=== PATIENT | female | born 1935 | race Caucasian/White ===

== ENCOUNTER 2024-04-19 18:11 | Inpatient (IN) | payer OTHER, SELFPAY ==
--- NOTE | 2024-04-19 13:26 | ED.GENMED ---
History of Present Illness
General
Chief Complaint: Breathing Problem
Source: patient, patient care assistant and ambulance crew
Exam Limitations: none
Time Seen by Provider: 04/19/24 13:03
Nursing documentation reviewed up to this point in time: agreed with
Travel History
Have you had any contact with someone who has COVID-19?: No
Do you have any symptoms of coronavirus? Fever > 100 degrees, chills, cough, shortness of breath, sore throat, loss of taste or smell, muscle aches, or headache?: No
History of Present Illness
History of Present Illness:
89-year-old female past medical history of asthma Parkinson's hypertension hyperlipidemia presenting to the emergency department today after she had a fall while she was doing exercises fell hit her back she has had ongoing back pain as well as
shortness of breath and wheezing since EMS was called found her to have a pulse ox in the 80s was given nebulizer treatment as well as oxygen with improvement. She has ongoing back pain denies specific chest pain nausea vomiting fevers any recent
illness she otherwise felt well prior to falling today.
Review of Systems
Review of Systems
Allergies reviewed?: Yes
All Other Systems: ROS reviewed and negative except as documented in HPI and ROS
Phy Exam
Physical Exam
Physical Exam:
GENERAL: Alert , in no apparent distress
EYE: pupils equal and reactive
NECK: Supple, no significant adenopathy.
ENT: o/p clr, mmm.
CARDIAC: Regular rate and rhythm .
LUNGS: Diffuse inspiratory and expiratory wheezing. Good air movement diffusely.
ABDOMEN: Soft, without focal tenderness, no r/g, no cvat
NEUROLOGICAL: Alert and oriented, no focal neuro deficits moving all extremities
SKIN: Warm and dry, skin intact.
MUSCULOSKELETAL: No edema, well perfused.
PSYCH: Normal and appropriate interaction.
Scores
Heart Failure Risk
Heart Failure Risk Score: Not Applicable
Course
Orders/Labs/Results
Orders:
Orders
04/19/24 Breakfast
Regular
At Your Request: Full Participation
Does patient need a safe tray?: No
04/19/24 13:03
Electrocardiogram (*1) Stat
Reason for Study: Other
Other Reason for Exam: chest pain
Cardiac Monitoring- Treatment ONCE
EKG- Treatment ONCE
Dexamethasone Sod Phosphate [Decadron] 10 mg IV NOW STA
Ipratropium/Albuterol Sulfate [Duoneb] 3 ml INH R NOW ONE
Portable Chest Xray [CR Chest Portable - 1 View] Urgent
Comment:
Reason For Exam: sob after fall
Reason Study Needs to be Portable: Patient Unstable
04/19/24 13:12
Chest/Abd/Pelvis w Contrast CT [CT Chest/abd/pel W Iv Cont] Urgent
Comment:
Reason For Exam: fall back pain sob cp,trauma scan
04/19/24 13:26
Complete Blood Count/With Diff Urgent
Comprehensive Metabolic Panel Urgent
Magnesium Urgent
NT-proBNP Urgent
Troponin I Urgent
04/19/24 14:43
Carbidopa/Levodopa [Sinemet 25-100] 1 tablet PO NOW STA
04/19/24 15:18
Propranolol [Inderal] 20 mg PO NOW STA
04/19/24 15:34
Dexamethasone Sod Phosphate [Decadron] 20 mg .ROUTE .STK-MED ONE
04/19/24 16:21
Ipratropium/Albuterol Sulfate [Duoneb] 3 ml INH R NOW ONE
04/19/24 17:24
Admit/Transfer Patient As Directed
Co-Sign Provider:
Level of Care: Inpatient admission
Assign to:: Medical/Surgical
Physician / Group: Laura
Diagnosis: Acute Asthma Exacerbation
Reason for Hospitalization: Nebs and Steroids
Expected length of stay greater than two midnights?: Yes
ELOS- Estimated Length of Stay in days: 3
I certify the patient meets the requirements for IP care: Yes
04/19/24 17:31
Code Status As Directed
Resuscitation Status: Do not resuscitate
Reached after discussion with pt or family/Healthcare POA: Yes
DNR Bracelet Application ONCE
04/19/24 17:52
COVID-19 Antigen Urgent
Source: Nasal Swab
Influenza A+B Rapid Molecular Urgent
SALMA Source: Nasal Swab
Specimen Description:
04/19/24 19:21
Acetaminophen [Tylenol] 650 mg PO Q4HPRN PRN
Albuterol Nebs [Ventolin Nebules] 2.5 mg INH R Q4HPRN PRN
04/19/24 19:21
Activity As Directed
Activity Level: Out of Bed- Chair
With Assistance
I&O [Intake/ Output] As Directed
Frequency: q12h
Orthostatic Vital Signs As Directed
Orthostatic VS Frequency: BID
Pneumatic Compression Sleeves As Directed
Type: Knee high
Vital Signs As Directed
Frequency: Per unit guidelines
Weight As Directed
Frequency: Daily
Oxygen Therapy [O2 Therapy] [RESP] Routine
Titrate/Wean O2 to maintain O2 sat greater than (%): 90
Pulse Ox/spot Check [RESP] Routine
Quantity: 1
Ot Eval And Treat Routine
Pt Eval And Treat Routine
Activity Level: Out of Bed-Early Mobility
DX Deep Vein Thrombosis Video Routine
04/19/24 20:00
Albuterol Nebs [Ventolin Nebules] 2.5 mg INH R QID
Budesonide [Pulmicort] 0.5 mg INH R BID
Calcium Carbonate [Oscal Eddie 500] 500 mg PO BID
04/19/24 22:00
Carbidopa/Levodopa [Sinemet 25-100] 1 tablet PO ACHS
04/20/24 05:35
Basic Metabolic Panel IN AM
Complete Blood Count/No Diff IN AM
04/20/24 08:00
Prednisone [Deltasone] 40 mg PO DAILY
Propranolol Extended Release [Inderal LA] 60 mg PO DAILY
Valsartan [Diovan] 160 mg PO DAILY
Abnormal Lab Results
04/19/24
13:26
WBC 17.1 H 10^3/uL
(4.8-10.8)
MCH 32.0 H pg
(27.0-31.0)
MPV 11.2 H fL
(7.4-10.4)
Abs Immat Gran (auto) 0.3 H 10^3/uL
(0-0.05)
Absolute Neuts (auto) 13.3 H 10^3/uL
(1.4-6.5)
Absolute Monos (auto) 0.9 H 10^3/uL
(0.1-0.6)
Immature Gran % 1.9 H %
(0-0.5)
Neutrophils % 78.1 H %
(42.2-75.2)
Lymphocytes % 13.3 L %
(20.5-51.1)
BUN 25 H mg/dl
(7-17)
Glucose 101 H mg/dl
(70-99)
AST 42 H U/L
(14-36)
04/19/24 13:26
04/19/24 13:26
Vital Signs
Initial and Last Documented VS:
Initial Vital Signs
Temp Pulse Resp Pulse Ox
97.9 F 82 22 93
04/19/24 13:07 04/19/24 13:07 04/19/24 13:07 04/19/24 13:07
Last Documented Vital Signs
Temp Pulse Resp BP Pulse Ox
98.4 F 79 18 156/96 95
04/20/24 14:08 04/20/24 15:27 04/20/24 15:27 04/20/24 07:50 04/20/24 15:27
MDM/Problems Addressed
MDM/Problems Addressed:
89-year-old female presenting to the emergency department today after ground-level fall hitting her back and then noticing shortness of breath wheezing since. Pulse ox was low the ambulance arrived this improved with nebulizer treatment and oxygen.
Patient does have diffuse wheezing. Considering that this was posttraumatic, ct scan was ordered. CT scan without acute findings. Concern the patient's significant asthma diet plan to admit for further treatment and monitoring.
*Critical Care Note
Total Time (30-74mins, 75-104mins- exclusive of procedures): Not Applicable
ED Attending Note
-
Portions of this chart may have been created with voice recognition software.� Occasional wrong word or��sound alike� substitutions may have occurred due to the inherent limitations of voice recognition software.
Discharge Plan
Departure
Patient Disposition: Admit
Date of Disposition: 04/19/24
Time of Disposition: 16:21
Admit to: Med/Surg
Admit to doctor: Kristi
Presentation/result/management discussed w/ accepting MD/DO: Hospitalist
Patient with high blood pressure during this ER visit?: No
Condition: Good
Covid-19: Not Applicable
Discharge Problem:
Asthma exacerbation, Fall
Interventions
Interventions:
*Risk Screen - Suicide Last Done: 04/19/24 19:19
*General Assessment Last Done: 04/19/24 19:19
*Neglect/Abuse Screening Last Done: 04/19/24 19:19
*ED COVID-19 Vaccine History Last Done: 04/19/24 19:19
*Nursing Disposition Last Done: 04/19/24 19:19
ED- Cardiac Assessment Last Done: 04/19/24 15:20
ED- Pulmonary Assessment Last Done: 04/19/24 15:20
Discharge Date and Time
Discharge Date/Time: 04/19/24 19:27
[2024-04-19 13:37] LABS: % Basophils 0.5 % (0-2); % Eosinophils 0.7 % (0-6); % Immature Granulocytes 1.9 % (0-0.5); % Lymphocytes 13.3 % (20.5-51.1); % Monocytes 5.5 % (1.7-9.3); % Neutrophils 78.1 % (42.2-75.2); Absolute Basophils 0.1 10^3/uL (0-0.2); Absolute Eosinophils 0.1 10^3/uL (0-0.7); Absolute Immature Granulocytes 0.3 10^3/uL (0-0.05); Absolute Lymphocytes 2.3 10^3/uL (1.2-3.4); Absolute Monocytes 0.9 10^3/uL (0.1-0.6); Absolute Neutrophils 13.3 10^3/uL (1.4-6.5); Hematocrit 45.1 % (37.0-47.0); Hemoglobin 15.5 g/dL (12.0-16.0); Mean Corp Hgb Conc. 34.4 g/dL (33.0-37.0); Mean Corpuscular Volume 93.2 fL (81.0-99.0); Mean Platelet Volume 11.2 fL (7.4-10.4); Nucleated Red Blood Cells % 0 %; Platelet Count 392 10^3/uL (130-400); Red Blood Cell Count 4.84 10^6/uL (4.20-5.40); Red Cell Dist. Width 13.9 % (11.5-14.5); White Blood Cell Count 17.1 10^3/uL (4.8-10.8)
[2024-04-19 13:48] LABS: ALT (SGPT) 14 U/L (0-35); AST (SGOT) 42 U/L (14-36); Albumin 4.4 g/dl (3.5-5.0); Alkaline Phosphatase 89 U/L (38-126); Blood Urea Nitrogen 25 mg/dl (7-17); Carbon Dioxide 30 mmol/L (22-30); Chloride 104 mmol/L (98-107); Glucose 101 mg/dl (70-99); Magnesium 1.7 mg/dl (1.6-2.3); Potassium 4.4 mmol/L (3.5-5.1); Sodium 141 mmol/L (135-145); Total Bilirubin 0.8 mg/dl (0.2-1.3); Total Protein 7.4 g/dl (6.3-8.2); eGFR > 60.00
[2024-04-19 13:59] LABS: NT-proBNP 1560 pg/ml; Troponin I < 0.012 ng/ml
[2024-04-19] MEDS: DECADRON 10 MG IV (15:34)
[2024-04-19] MEDS: SINEMET 25-100 1 TABLET PO ×2 (15:35→21:19)
[2024-04-19] MEDS: INDERAL 20 MG PO (15:35)
[2024-04-19] MEDS: DUONEB 3 ML INH ×2 (15:48→18:30)
--- NOTE | 2024-04-19 17:37 | HPS.HSE ---
Addendum entered and electronically signed by Richardson Sanchez MD 04/19/24 18:00:
I saw and examined the patient.
The REPORT CLERK or PA's note was reviewed and I agree with the note.
Comment:
88y F with PMH significant for asthma, Parkinson�s, hypertension, HLD, and spinal compression fracture now presenting after fall, found to be hypoxic, shortness of breath and wheezing.� Patient states she was doing exercises while she hit her back.�
Patient subsequently had ongoing back pain, shortness of breath and wheezing thereafter.� Noted to have pulse oximeter recording in the 80 percentile.� Patient's oxygenation improved with oxygen and nebulizer treatment.� Otherwise denies chest pain,
fever, chills, nausea, vomiting, sick contact, recent viral illness.� Vitals show respiratory 22, 93% on 2 L, pulse 82.� Afebrile.� White count 17.1, proBNP 1560.� CT chest abdomen pelvis with thoracic and lumbar vertebral compression fractures,
stable, cardiomegaly, no acute posttraumatic soft tissue abnormality.
Plan
#Acute hypoxic respiratory failure
#Acute Asthma Exacerbation
� In setting wheezing, most likely asthma exacerbation
�continue DuoNebs
- prednisone 40mg
� Wean O2 as tolerated
-sars-cov-2 and flu
� No overt evidence of fluid overload at this time
� If no improvement with DuoNebs, can consider Lasix, echo although doubt and less likely as no evidence of fluid overload on CT imaging
#Leukocytosis
#SIRS without obvious infectious etiology
� Most likely acute stress due to fall, respiratory distress
� Continue to monitor fever curve, white count
Compression Fracture / Sacral Fracture
Ambulatory Dysfunction
�- Pain control as needed.
�- PT / OT evaluations during acute stay.
�- CT head: negative for acute pathology
#Essential Tremor
propranolol
DVT Prophylaxis:� Subcut heparin
Code Status:� DNR
Original Note:
Family Physician
-
Family Physician: Colin Kelley DO
Chief Complaint
-
Wheezing
History of Present Illness
This is a 89-year-old female with a past medical history of asthma, essential tremor, hypertension and spinal compression fractures, who presents today for increase shortness of breathe and wheezing following a fall this afternoon. She states she
was completing exercises while ambulating with her walker and when she went back to her wheelchair to sit down, she missed and fell onto her back. She states her breathing became worse and she had onset of wheezing at the time as well. She currently
complains of dull mid back pain, but states it is significantly improved since time of injury. She denies coughing, chest pain, fevers/chills, dizziness, palpitations and current wheezing. She denies increase use of albuterol inhaler.
Medical History
Past Medical History
Past Medical History: Reports Other
Additional Past Medical History:
Essential Hypertension
Benign Essential Tremor / Parkinson's Disease
Asthma
Thoracic Compression Fracture
Sacral Insufficiency Fracture
Ambulatory Dysfunction
Past Surgical History: Reports None
Social History
Tobacco: Non-smoker
Alcohol: None
Drug: None
Living: Other (Independent Apartment with Aides)
Family History
Family History: Not pertinent
Allergies / Home Medications
Allergies reflects when Allergies were last updated in [employer].
Home Medications with original date entered in [employer]
Allergy/Medication List:
Allergies
Allergy/AdvReac Type Severity Reaction Status Date / Time
Cephalosporins Allergy Unknown Unknown Verified 04/04/23 01:20
clindamycin Allergy Unknown Verified 04/04/23 01:20
Penicillins Allergy Unknown Verified 04/04/23 01:20
Home Medications
acetaminophen 325 mg tablet 650 mg PO Q4H PRN pain 04/04/23
albuterol sulfate 90 mcg/actuation aerosol inhaler 2 puff inhalation QID PRN wheezing 04/04/23
multivitamin 1 tab PO DAILY Supplement 04/04/23
calcium carbonate 500 mg PO BID 04/19/24
carbidopa 25 mg-levodopa 100 mg tablet 1 tab PO QID 04/19/24
fluticasone propionate 45 mcg-salmeterol 21 mcg/actuation HFA inhaler (Advair HFA) 2 puff inhalation BID 04/19/24
propranolol 60 mg capsule,24 hr,extended release 60 mg PO DAILY 04/19/24
valsartan 160 mg tablet 160 mg PO DAILY 04/19/24
Review of Systems
-
A 12 point ROS was completed and negative except as noted: Yes
Constitutional: Denies Fever or Chills
Respiratory: Reports See HPI
Cardiac: Denies Chest Pain or Palpitations
Physical Exam
Vital Signs
Vital Signs
Temp Pulse Resp BP Pulse Ox
97.9 F 85 22 159/98 93
04/19/24 13:07 04/19/24 15:35 04/19/24 13:07 04/19/24 15:35 04/19/24 13:07
Physical Exam
General: Comfortable and Conversant
HEENT: Anicteric, Moist mucous membranes and Oxygen (Nasal Cannula)
Respiratory: Rales (Faint at right base) and Decreased Breath Sounds (Poor inspiratory effort); No Accessory Resp Muscle Use
Cardiac: S1/S2 and Regular Rhythm; No Tachycardia
GI: Soft and Non Tender
Musculoskeletal: No Clubbing, No Cyanosis and Other (Trace edema bilateral lower ext)
Skin: Warm and Dry
Neuro: Awake, Alert, Oriented and Tremors (Fine tremors in bilateral upper extremities)
Laboratory Results
-
04/19/24 13:26
04/19/24 13:26
Laboratory Results
Total Bilirubin 0.8 mg/dl (0.2-1.3) 04/19/24 13:26
AST 42 U/L (14-36) H 04/19/24 13:26
ALT 14 U/L (0-35) 04/19/24 13:26
Alkaline Phosphatase 89 U/L (38-126) 04/19/24 13:26
Troponin I < 0.012 ng/ml 04/19/24 13:26
Data Reviewed
-
Diagnostic Radiology: Report Reviewed by me
CT Scan: Report Reviewed by me
Lab Data: Labs Reviewed by me
Impression/Plan
-
Acute Hypoxic Respiratory Insufficiency secondary to Acute Asthma Exacerbation
-Continue supplemental oxygen
-Check COVID and Influenza
-Continue Albuterol neb QID and PRN
-Continue budesonide neb in place of Flovent HFA
-Patient received Decadron 10mg IV in ED - Transition to oral prednisone to start tomorrow
Leukocytosis, likely leukemoid stress reaction
-No evidence of infection at present time
-Repeat CBC in AM
Essential Hypertension
-Continue valsartan
Benign Essential Tremor / Parkinson's Disease
-Continue Propranolol and Sinemet
-Consult PT/OT
DVT proph: SCDs
Code Status: DNR
[2024-04-19 18:24] LABS: COVID-19 Antigen Negative (Negative)
--- NOTE | 2024-04-19 19:37 | PTCARENOTE ---
Pt arrived onto floor @1937. Pt AAOx3 and a candy puller to the bed. Pt on 3L of O2, with no complaints of SOB or pain at this time. Pt oriented to room and call braxton; will continue to monitor.
[2024-04-19] MEDS: VENTOLIN NEBULES 2.5 MG INH (20:09)
[2024-04-19] MEDS: PULMICORT 0.5 MG INH (20:12)
[2024-04-19] MEDS: OSCAL CAL 500 PO (21:21)
[2024-04-19 23:00] VITALS: BP 130/73
[2024-04-20 00:14] VITALS: BP 130/73
[2024-04-20 06:03] LABS: Hematocrit 40.3 % (37.0-47.0); Mean Corp Hgb Conc. 34.7 g/dL (33.0-37.0); Mean Corpuscular Hgb 31.9 pg (27.0-31.0); Mean Corpuscular Volume 91.8 fL (81.0-99.0); Platelet Count 280 10^3/uL (130-400); Red Blood Cell Count 4.39 10^6/uL (4.20-5.40); Red Cell Dist. Width 13.8 % (11.5-14.5); White Blood Cell Count 11.6 10^3/uL (4.8-10.8)
[2024-04-20 06:22] LABS: Blood Urea Nitrogen 22 mg/dl (7-17); Calcium 9.4 mg/dl (8.4-10.2); Carbon Dioxide 26 mmol/L (22-30); Chloride 105 mmol/L (98-107); Estimated Creatinine Clearance 54 ml/min; Glucose 145 mg/dl (70-99); Potassium 4.3 mmol/L (3.5-5.1); Sodium 137 mmol/L (135-145); eGFR > 60.00
[2024-04-20] MEDS: PULMICORT 0.5 MG INH ×2 (07:29→20:04)
[2024-04-20] MEDS: VENTOLIN NEBULES 2.5 MG INH ×4 (07:29→20:03)
[2024-04-20 07:50] VITALS: BP 156/96
[2024-04-20] MEDS: OSCAL CAL 500 500 MG PO ×2 (09:57→21:15)
[2024-04-20] MEDS: DIOVAN 160 MG PO (09:57)
[2024-04-20] MEDS: DELTASONE 40 MG PO (09:58)
[2024-04-20] MEDS: INDERAL LA 60 MG PO (10:06)
[2024-04-20] MEDS: SINEMET 25-100 1 TABLET PO ×3 (10:09→18:00)
--- NOTE | 2024-04-20 12:57 | W.PN.HOSP.TC ---
Today's Communication/Plan
-
dc ready, cm aware- transport is issue at this time
prednisone 5 days
f/u with pcp, ortho outpatient
Assessment / Plan
Assessment / Plan
Physical Exam
General: Comfortable and Conversant
HEENT: Anicteric, Moist mucous membranes and Oxygen (Nasal Cannula)
Respiratory: CTAB; No Accessory Resp Muscle Use
Cardiac: S1/S2 and Regular Rhythm; No Tachycardia
GI: Soft and Non Tender
Musculoskeletal: No Clubbing, No Cyanosis and Other (Trace edema bilateral lower ext)
Skin: Warm and Dry
Neuro: Awake, Alert, Oriented and Tremors (Fine tremors in bilateral upper extremities)
Acute Hypoxic Respiratory Insufficiency secondary to Acute Asthma Exacerbation
-Weaned off o2, wheezing resolved
-Prednisone x 5 days total
-COVID and Influenza negative
-Continue Albuterol neb QID and PRN
-Continue budesonide neb in place of Flovent HFA - back to Avair on DC
Leukocytosis, likely leukemoid stress reaction
-No evidence of infection at present time
-monitor fever curve, wbc
Essential Hypertension
-Continue valsartan
Benign Essential Tremor / Parkinson's Disease
-Continue Propranolol and Sinemet
-Consult PT/OT
Chronic LE Edema
-f/u PCP outpatient, including ECHO if needed
Compression Fracture / Sacral Fracture
Ambulatory Dysfunction
�- Pain control as needed.
�- PT / OT evaluations during acute stay.
�- CT head: negative for acute pathology
DVT proph: HSQ
Code Status: DNR
More than 30 minutes spent in discharge including
Final examination of the patient
Summarizing hospital stay
Instructions for continuing care to all relevant caregivers
Preparation of discharge records, prescriptions, and referral forms
Total time spent (35 in minutes):
Anticipated Discharge: Today
Subjective/Interval History
-
Date of Service: April 20, 2024
Wheezing resolved, weaned off O2
Objective Data
-
Labs:
Laboratory Results
04/20/24
05:35
WBC 11.6 H
Hgb 14.0
Hct 40.3
Plt Count 280 D
Sodium 137
Potassium 4.3
Chloride 105
Carbon Dioxide 26
BUN 22 H
Creatinine 0.6
Glucose 145 H
Calcium 9.4
Vital Signs:
Vital Signs
Temp Pulse Resp BP Pulse Ox
98.2 F 82 17 156/96 92
04/20/24 07:50 04/20/24 11:08 04/20/24 11:08 04/20/24 07:50 04/20/24 11:08
I&O
04/19/24 04/20/24 04/21/24
06:59 06:59 06:59
Intake Total 0 / 0
Balance 0 / 0
Review of Systems
-
History Source: Patient
All other systems: Reviewed and negative
Data Reviewed
-
Diagnostic Radiology: Image personally visualized and interpreted and Report Reviewed by me
CT Scan: Image personally visualized and interpreted and Report Reviewed by me
Labs: Labs Reviewed by me
[2024-04-20] MEDS: TYLENOL 650 MG PO (13:30)
--- NOTE | 2024-04-20 13:52 | CM ---
trust manager assistant reviewed patient's chart and met with patient and patient lives alone in a 4th apartment, that is elevator accessible, patient is independent with adl's and uses a walker and w/c in apartment. Patient has a 24 hour caregiver in
apartment. Patient has a prescription plan and patient uses [facility] pharmacy.
PCP: Dr. Chanel Kelley
Plan; trust manager assistant will await PT/OT and assist with discharge planning.
--- NOTE | 2024-04-20 14:00 | PTCARENOTE ---
1330 Pt c/o discomfort pain level 8, right side and right lower abdomen. Pt mention pain increases mainly when moving in bed.
DR. Sanchez notified ordered right rib and pelvis x-rays. Tylenol given as ordered, continue to monitor pt closely.
[2024-04-20 15:55] VITALS: BP 136/67
[2024-04-20] MEDS: HEPARIN 5000 UNITS SC (18:00)
[2024-04-20 23:57] VITALS: BP 157/78
[2024-04-21] MEDS: SINEMET 25-100 1 TABLET PO ×4 (00:23→17:44)
[2024-04-21] MEDS: HEPARIN 5000 UNITS SC ×2 (00:33→09:09)
[2024-04-21 04:56] VITALS: BP 188/90; BP 191/92; PULSE 66; PULSE 69
[2024-04-21 06:00] VITALS: BMI 17.8
[2024-04-21] MEDS: PULMICORT 0.5 MG INH (07:20)
[2024-04-21] MEDS: VENTOLIN NEBULES 2.5 MG INH ×3 (07:20→15:12)
[2024-04-21 07:25] VITALS: BP 179/98
[2024-04-21 07:29] LABS: Hematocrit 38.2 % (37.0-47.0); Hemoglobin 13.2 g/dL (12.0-16.0); Mean Corp Hgb Conc. 34.6 g/dL (33.0-37.0); Mean Corpuscular Hgb 32.1 pg (27.0-31.0); Mean Corpuscular Volume 92.9 fL (81.0-99.0); Mean Platelet Volume 11.8 fL (7.4-10.4); Platelet Count 229 10^3/uL (130-400); Red Blood Cell Count 4.11 10^6/uL (4.20-5.40); Red Cell Dist. Width 14.2 % (11.5-14.5); White Blood Cell Count 11.5 10^3/uL (4.8-10.8)
[2024-04-21] MEDS: DELTASONE 40 MG PO (09:06)
[2024-04-21] MEDS: DESENEX/MITRAZOL/ZEASORB 1 APPLIC TOPICAL (09:06)
[2024-04-21] MEDS: DIOVAN 160 MG PO (09:07)
[2024-04-21] MEDS: INDERAL LA 60 MG PO (09:07)
[2024-04-21] MEDS: OSCAL CAL 500 500 MG PO (09:10)
--- NOTE | 2024-04-21 10:33 | W.PN.HOSP.TC ---
Addendum entered and electronically signed by Richardson Sanchez MD 04/21/24 15:46:
[id number]
Original Note:
Today's Communication/Plan
-
dc ready, cm aware
pt/ot pending
pain control
prednisone 5 days
f/u with pcp, ortho outpatient
Assessment / Plan
Assessment / Plan
Physical Exam
General: Comfortable and Conversant
HEENT: Anicteric, Moist mucous membranes and Oxygen (Nasal Cannula)
Respiratory: CTAB; No Accessory Resp Muscle Use
Cardiac: S1/S2 and Regular Rhythm; No Tachycardia
GI: Soft and Non Tender
Musculoskeletal: No Clubbing, No Cyanosis and Other (Trace edema bilateral lower ext)
Skin: Warm and Dry
Neuro: Awake, Alert, Oriented and Tremors (Fine tremors in bilateral upper extremities)
Acute Hypoxic Respiratory Insufficiency secondary to Acute Asthma Exacerbation
-Weaned off o2, wheezing resolved
-Prednisone x 5 days total
-COVID and Influenza negative
-Continue Albuterol neb QID and PRN
-Continue budesonide neb in place of Flovent HFA - back to Avair on DC
Leukocytosis, likely leukemoid stress reaction
-No evidence of infection at present time
-monitor fever curve, wbc
Essential Hypertension
-Continue valsartan
Benign Essential Tremor / Parkinson's Disease
-Continue Propranolol and Sinemet
-Consult PT/OT
Chronic LE Edema
-f/u PCP outpatient, including ECHO if needed
Compression Fracture / Sacral Fracture
Ambulatory Dysfunction
�- Pain control as needed.
�- PT / OT evaluations during acute stay.
�- CT head: negative for acute pathology
DVT proph: HSQ
Code Status: DNR
More than 30 minutes spent in discharge including
Final examination of the patient
Summarizing hospital stay
Instructions for continuing care to all relevant caregivers
Preparation of discharge records, prescriptions, and referral forms
Total time spent (35 in minutes):
Anticipated Discharge: Today
Subjective/Interval History
-
Date of Service: April 21, 2024
dc was held yest due to right rib pain, immobility. patient feeling better today. cxr with no sig findings
Objective Data
-
Labs:
Laboratory Results
04/21/24
06:15
WBC 11.5 H
Hgb 13.2
Hct 38.2
Plt Count 229
Vital Signs:
Vital Signs
Temp Pulse Resp BP Pulse Ox
97.8 F 73 18 179/98 96
04/21/24 07:25 04/21/24 07:25 04/21/24 07:25 04/21/24 07:25 04/21/24 07:25
I&O
04/20/24 04/21/24 04/22/24
06:59 06:59 06:59
Intake Total 0 / 0 720 / 720
Output Total 150 / 150
Balance 0 / 0 570 / 570
Review of Systems
-
History Source: Patient
All other systems: Not reviewed unless documented
Data Reviewed
-
Diagnostic Radiology: Image personally visualized and interpreted and Report Reviewed by me
CT Scan: Image personally visualized and interpreted and Report Reviewed by me
Labs: Labs Reviewed by me
--- NOTE | 2024-04-21 10:35 | W.DS.TRANS ---
DC Summary - Endocrinology Teacher
-
Discharge Instructions:
Discharge Diagnosis/Procedures Asthma exacerbation
Diet Low Cholesterol,Low Fat
Activity As tolerated
Blood Work cbc in 1 week with pcp
Instructions:
Stand-Alone Forms:
Changes to Home Medications: Yes
Discharge Medications:
DC Medications w/original date entered in [employer]
acetaminophen 325 mg tablet 650 mg PO Q4H PRN pain 04/04/23
albuterol sulfate 90 mcg/actuation aerosol inhaler 2 puff inhalation QID PRN wheezing 04/04/23
multivitamin 1 tab PO DAILY Supplement 04/04/23
calcium carbonate 500 mg PO BID 04/19/24
carbidopa 25 mg-levodopa 100 mg tablet 1 tab PO ACHS 04/19/24
fluticasone propionate 45 mcg-salmeterol 21 mcg/actuation HFA inhaler (Advair HFA) 2 puff inhalation BID 04/19/24
propranolol 60 mg capsule,24 hr,extended release 60 mg PO DAILY 04/19/24
valsartan 160 mg tablet 160 mg PO DAILY 04/19/24
prednisone 20 mg tablet 40 mg (2 x 20 mg) PO DAILY 4 days #8 tabs 04/20/24
Home Medication Changes
prednisone 20 mg tablet 40 mg (2 x 20 mg) PO DAILY 4 days #8 tabs 04/20/24
Pending Results: No
[2024-04-21 12:34] VITALS: BP 167/83; PULSE 65
[2024-04-21 12:35] VITALS: BP 167/83; PULSE 65
--- NOTE | 2024-04-21 14:15 | CM ---
Patient is for discharge to home today, case management director reviewed patient's chart and met with patient and plan is to home with [facility] and [facility] when stable, [facility], patient has 24 hour caregiver in home from [facility]. Patient
has an ambulance pick and shovel worker for 6pm.
Plan; Home with [facility].
[2024-04-21 16:05] VITALS: BP 153/74
[2024-04-21] MEDS: HEPARIN SC (17:07)
== END 2024-04-21 18:30 | disposition home health service (06) | DRG 202 ==
LOC: 4 WEST ACU 18:11
PROVIDERS: Physician Assistant; Physician Assistant Medical; ADMITTING PHYSICIAN Internal Medicine; EMERGENCY PHYSICIAN Emergency Medicine; FAMILY PHYSICIAN Student in an Organized Health Care Education/Training Program
DX: J45.901 Unspecified asthma with (acute) exacerbation (principal); M48.56XA Collapsed vertebra, not elsewhere classified, lumbar region, initial encounter for fracture; R65.10 Systemic inflammatory response syndrome (SIRS) of non-infectious origin without acute organ dysfunction; M48.58XA Collapsed vertebra, not elsewhere classified, sacral and sacrococcygeal region, initial encounter for fracture; G20.A1 Parkinson's disease without dyskinesia, without mention of fluctuations; I11.9 Hypertensive heart disease without heart failure; R09.02 Hypoxemia; G25.0 Essential tremor; R26.2 Difficulty in walking, not elsewhere classified; R06.89 Other abnormalities of breathing; D72.829 Elevated white blood cell count, unspecified; E78.5 Hyperlipidemia, unspecified; W01.10XA Fall on same level from slipping, tripping and stumbling with subsequent striking against unspecified object, initial encounter; Y93.A9 Activity, other involving cardiorespiratory exercise; Y92.009 Unspecified place in unspecified non-institutional (private) residence as the place of occurrence of the external cause; Z66 Do not resuscitate; Z11.52 Encounter for screening for COVID-19; Z88.1 Allergy status to other antibiotic agents; Z88.0 Allergy status to penicillin
CPT/HCPCS: 71045; 71100; 71260; 72170; 74177; 80048; 80053; 83735; 83880; 84484; 85025; 85027; 87502; 87811; 93005; 94640; 96374; 97163; 97167; 97530; 99285; Q9967

== ENCOUNTER 2024-05-29 11:21 | Emergency (ER) | payer OTHER, SELFPAY ==
[2024-05-29 11:22] VITALS: BP 174/84
[2024-05-29 11:46] LABS: % Basophils 0.6 % (0-2); % Immature Granulocytes 0.6 % (0-0.5); % Lymphocytes 16.3 % (20.5-51.1); % Monocytes 7.6 % (1.7-9.3); % Neutrophils 72.9 % (42.2-75.2); Absolute Basophils 0.1 10^3/uL (0-0.2); Absolute Eosinophils 0.2 10^3/uL (0-0.7); Absolute Immature Granulocytes 0.1 10^3/uL (0-0.05); Absolute Lymphocytes 1.6 10^3/uL (1.2-3.4); Absolute Monocytes 0.8 10^3/uL (0.1-0.6); Absolute Neutrophils 7.3 10^3/uL (1.4-6.5); Hematocrit 41.6 % (37.0-47.0); Hemoglobin 14.7 g/dL (12.0-16.0); Mean Corp Hgb Conc. 35.3 g/dL (33.0-37.0); Mean Corpuscular Hgb 31.8 pg (27.0-31.0); Mean Platelet Volume 10.5 fL (7.4-10.4); Nucleated Red Blood Cells % 0 %; Platelet Count 415 10^3/uL (130-400); Red Blood Cell Count 4.62 10^6/uL (4.20-5.40)
[2024-05-29 12:00] LABS: ALT (SGPT) < 10 U/L (0-35); AST (SGOT) 35 U/L (14-36); Alkaline Phosphatase 95 U/L (38-126); Blood Urea Nitrogen 17 mg/dl (7-17); Calcium 9.8 mg/dl (8.4-10.2); Carbon Dioxide 29 mmol/L (22-30); Chloride 102 mmol/L (98-107); Glucose 120 mg/dl (70-99); Potassium 3.9 mmol/L (3.5-5.1); Sodium 137 mmol/L (135-145); Total Bilirubin 0.8 mg/dl (0.2-1.3); Total Protein 6.7 g/dl (6.3-8.2); eGFR > 60.00
--- NOTE | 2024-05-29 12:59 | ED.GENMED ---
History of Present Illness
General
Chief Complaint: Blood Pressure Problem
Source: patient
Exam Limitations: none
Time Seen by Provider: 05/29/24 12:57
Nursing documentation reviewed up to this point in time: agreed with
History of Present Illness
History of Present Illness:
89 yr old female with past medical history of hypertension, essential tremors, hyperlipidemia presents to the ER for evaluation. Patient lives alone but does have 24-hour care. Patient reports yesterday her blood pressure was 220/120. This was
taken by physical therapist. She has a physical therapist because of balance issues, essential tremors Parkinson's. She notified her physician who recommended she come to the ER. She is on valsartan and propranolol. She normally takes valsartan
at night but yesterday took it twice instructed by her physician. Today she took valsartan and propranolol prior to coming to the ER. Her blood pressure was also elevated today however she has no symptoms. She had no headache, dizziness chest pain.
She has had a cough for the past several days but denies fevers. She is concerned about x-ray results. She reports her family doctor had ordered an x-ray and it was done at her house yesterday and she is not aware of the results. She denies any
fever or chills. She does not feel ill.
Review of Systems
Review of Systems
Allergies reviewed?: Yes
All Other Systems: ROS reviewed and negative except as documented in HPI and ROS
Constitutional: Reports no symptoms
Respiratory: Reports no symptoms; Denies trouble breathing
Cardiac: Reports no symptoms
ABD/GI: Reports no symptoms
Musculoskeletal: Reports no symptoms
Skin: Reports no symptoms
Psychiatric: Reports no symptoms
Phy Exam
General Physical Exam
General Presentation: no apparent distress
General age: appears stated age
General Skin: warm and dry
General Habitus: elderly
General Mental: alert
General Hydration: appears well hydrated
Cardiovascular Exam
Cardiovascular Exam: regular rate/rhythm, no murmur and normal peripheral pulses
Pulmonary Exam
Pulmonary Exam: lungs clear and no respiratory distress
Neurological Exam
Neurological Exam: alert, oriented x3 and other (chronic b/l upper extremity tremors )
Musculoskeletal Exam
Musculoskeletal Exam: full ROM and other ( no l/e swelling )
Skin Exam
Skin Exam: normal color and warm/dry
Psychiatric Exam
Psychiatric Exam: normal mood/affect
Course
Orders/Labs/Results
Orders:
Orders
05/29/24 11:26
Electrocardiogram (*1) Urgent
Reason for Study: Hypertension, Benign
EKG- Treatment ONCE
05/29/24 11:35
Complete Blood Count/With Diff Urgent
Comprehensive Metabolic Panel Urgent
05/29/24 13:11
Electrocardiogram (*1) Urgent
Reason for Study: Tachycardia
EKG- Treatment ONCE
05/29/24 14:05
Chest [CR Chest - 2 Views ] Urgent
Comment:
Reason For Exam: cough
Abnormal Lab Results
05/29/24
11:35
MCH 31.8 H pg
(27.0-31.0)
Plt Count 415 H 10^3/uL
(130-400)
MPV 10.5 H fL
(7.4-10.4)
Abs Immat Gran (auto) 0.1 H 10^3/uL
(0-0.05)
Absolute Neuts (auto) 7.3 H 10^3/uL
(1.4-6.5)
Absolute Monos (auto) 0.8 H 10^3/uL
(0.1-0.6)
Immature Gran % 0.6 H %
(0-0.5)
Lymphocytes % 16.3 L %
(20.5-51.1)
Glucose 120 H mg/dl
(70-99)
05/29/24 11:35
05/29/24 11:35
Vital Signs
Initial and Last Documented VS:
Initial Vital Signs
Temp Pulse Resp BP Pulse Ox
98.4 F 64 18 174/84 93
05/29/24 11:22 05/29/24 11:22 05/29/24 11:22 05/29/24 11:22 05/29/24 11:22
Last Documented Vital Signs
Temp Pulse Resp BP Pulse Ox
98.4 F 60 17 163/92 93
05/29/24 11:22 05/29/24 13:27 05/29/24 13:27 05/29/24 15:25 05/29/24 13:27
Chemistry Intern consulted with Physician
Chemistry Intern consulted with physician?: Yes
Name of Physician Consulted: Lloyd
MDM/Problems Addressed
MDM/Problems Addressed:
Patient presented to the ER for elevated blood pressure. She however is asymptomatic. She in addition has had mild cough but denies any fever or chills. X-ray done here low suspicion for pneumonia. She is afebrile no cough here lungs are clear
normal white count likely viral. Patient is requesting something for cough will DC on Tessalon. With regards to high blood pressure. Will have patient closely follow-up with family doctor for elevated blood pressure. She has no headaches chest
pain shortness of breath and no acute distress and has normal renal function.
*Pulse Oximetry
Patient hypoxic: no
*Critical Care Note
Total Time (30-74mins, 75-104mins- exclusive of procedures): Not Applicable
ED Attending Note
-
Portions of this chart may have been created with voice recognition software.� Occasional wrong word or��sound alike� substitutions may have occurred due to the inherent limitations of voice recognition software.
Discharge Plan
Departure
Patient Disposition: Home (Routine Discharge)
Date of Disposition: 05/29/24
Time of Disposition: 15:29
Patient with high blood pressure during this ER visit?: Yes
Condition: Fair
Covid-19: Not Applicable
Discharge Problem:
elevated blood pressure, Cough
Instructions: Cough, Adult ED, BLOOD PRESSURE
Prescriptions:
New
benzonatate 100 mg capsule
100 mg PO TID PRN (Reason: Cough) Qty: 10 0RF
No Action
multivitamin Tablet
1 tab PO DAILY
acetaminophen 325 mg Tablet
650 mg PO Q4H PRN (Reason: pain)
albuterol sulfate 90 mcg/actuation Hfa Aerosol Inhaler
2 puff INHALATION QID PRN (Reason: wheezing)
propranolol 60 mg Capsule,Extended Release 24 Hr
60 mg PO DAILY
calcium carbonate 500 mg calcium (1,250 mg) Tablet
500 mg PO BID
carbidopa-levodopa 25-100 mg Tablet
1 tab PO ACHS
Patient Comments:
PT STATES SHE TAKES MED WITH MEALS & HS
valsartan 160 mg Tablet
160 mg PO DAILY
fluticasone propion-salmeterol [Advair HFA] 45-21 mcg/actuation Hfa Aerosol Inhaler
2 puff INHALATION BID
prednisone 20 mg Tablet
40 mg PO DAILY 4 Days Qty: 8 0RF
Referrals:
Chanel Kelley DO [Family Provider] -
Activity Restrictions/Additional Instructions:
As discussed you may take Tessalon every 8 hours as needed for cough. This medication was sent to your pharmacy.
Follow-up with family doctor in the next several days for reevaluation of blood pressure. You may need additional changes to your medication. Return if any worsening of symptoms however if chest pain vision headache nausea vomiting.
Interventions
Interventions:
*Risk Screen - Suicide Last Done: 05/29/24 11:22
*General Assessment Last Done: 05/29/24 11:22
*Neglect/Abuse Screening Last Done: 05/29/24 11:22
ED- Fall Risk Assessment Last Done: 05/29/24 13:11
ED- Cardiac Assessment Last Done: 05/29/24 13:27
ED- Neurological Assessment Last Done: 05/29/24 13:11
ED- Pulmonary Assessment Last Done: 05/29/24 13:11
Discharge Date and Time
Print Language: ALBANIAN
[2024-05-29 13:27] VITALS: BP 169/99
[2024-05-29 15:25] VITALS: BP 163/92
== END 2024-05-29 19:07 | disposition home or self-care (01) ==
LOC: EMR 11:21
PROVIDERS: Emergency Medicine; EMERGENCY PHYSICIAN Emergency Medicine; FAMILY PHYSICIAN Student in an Organized Health Care Education/Training Program
DX: R05.9 Cough, unspecified (principal); R03.0 Elevated blood-pressure reading, without diagnosis of hypertension; G20.A1 Parkinson's disease without dyskinesia, without mention of fluctuations; G25.0 Essential tremor; I10 Essential (primary) hypertension
CPT/HCPCS: 99283; 71046; 80053; 85025; 93005

== ENCOUNTER 2024-11-22 20:38 | Inpatient (IN) | payer OTHER, SELFPAY ==
[2024-11-22] VITALS (9 sets, daily range): BP systolic 122–215; BP diastolic 69–136; BMI 18.9; BMI 18.5
[2024-11-22 14:59] LABS: % Basophils 0.6 % (0-2); % Eosinophils 0.7 % (0-6); % Immature Granulocytes 0.5 % (0-0.5); % Lymphocytes 9.6 % (20.5-51.1); % Monocytes 7.2 % (1.7-9.3); % Neutrophils 81.4 % (42.2-75.2); Absolute Basophils 0.1 10^3/uL (0-0.2); Absolute Eosinophils 0.1 10^3/uL (0-0.7); Absolute Immature Granulocytes 0.1 10^3/uL (0-0.05); Absolute Lymphocytes 1.5 10^3/uL (1.2-3.4); Absolute Monocytes 1.1 10^3/uL (0.1-0.6); Absolute Neutrophils 12.3 10^3/uL (1.4-6.5); Hematocrit 47.1 % (37.0-47.0); Hemoglobin 16.1 g/dL (12.0-16.0); Mean Corp Hgb Conc. 34.2 g/dL (33.0-37.0); Mean Corpuscular Volume 90.6 fL (81.0-99.0); Mean Platelet Volume 10.6 fL (7.4-10.4); Nucleated Red Blood Cells % 0 %; Platelet Count 542 10^3/uL (130-400); White Blood Cell Count 15.1 10^3/uL (4.8-10.8)
[2024-11-22 15:12] LABS: ALT (SGPT) 23 U/L (0-35); AST (SGOT) 30 U/L (14-36); Albumin 4.1 g/dl (3.5-5.0); Alkaline Phosphatase 102 U/L (38-126); Blood Urea Nitrogen 9 mg/dl (7-17); Calcium 9.6 mg/dl (8.4-10.2); Carbon Dioxide 25 mmol/L (22-30); Chloride 99 mmol/L (98-107); Glucose 125 mg/dl (70-99); Sodium 135 mmol/L (135-145); Total Bilirubin 1.8 mg/dl (0.2-1.3); Total Protein 6.9 g/dl (6.3-8.2); eGFR > 60.00
[2024-11-22 15:16] LABS: COVID-19 Antigen Negative (Negative)
[2024-11-22 15:56] LABS: NT-proBNP 7020 pg/ml
--- NOTE | 2024-11-22 18:31 | ED.GENMED ---
History of Present Illness
General
Chief Complaint: Breathing Problem
Source: patient and physician
Time Seen by Provider: 11/22/24 17:55
History of Present Illness
History of Present Illness:
89-year-old female with past medical history of asthma, hypertension, hyperlipidemia presenting to the emergency department at request of her primary care provider after patient went to their office today for evaluation after she has been
experiencing 5 days of coughing, wheezing, shortness of breath and increased fatigue. Son who is present with the patient states that patient has gradually been declining over these few days and has heard her audibly wheezing during this time.
Patient states she has not had any chest pain, palpitations, diaphoresis, lower extremity edema, noted fevers, chills, rigors. Patient states she is not exactly sure what usually triggers her asthma but notes she has been using her inhaler and
Advair with minimal relief. No known sick contacts or recent antibiotics.
Past History
Past History
ED Past Medical History: Asthma, HTN and Hypercholesterolemia
ED Past Surgical History: None
Social History
Tobacco: Non-smoker
Alcohol: None
Drug: None
Personal:
Living: with family
Review of Systems
Review of Systems
All Other Systems: ROS reviewed and negative except as documented in HPI and ROS
Phy Exam
Physical Exam
Physical Exam:
GENERAL: Alert , in no apparent distress, elderly and somewhat frail
HEAD: NCAT
EYE: clear conjunctiva
NECK: Supple
ENT: o/p clr, mmm.
CARDIAC: Borderline tachycardic rate and rhythm
LUNGS: Diffuse expiratory wheezing, Rales at the right base, tachypneic but speaking full sentences
ABDOMEN: Soft, without focal tenderness, no r/g, no cvat
NEUROLOGICAL: Alert and oriented
SKIN: Warm and dry, skin intact.
MUSCULOSKELETAL: No edema, well perfused.
PSYCH: Normal and appropriate interaction.
Scores
Heart Failure Risk
Heart Failure Risk Score: Yes
History of Stroke or TIA: No
History of intubation for respiratory distress: No
Heart rate on ED arrival >/= 110: No
SaO2 <90% on arrival on room air: Yes
HR >/=110 during 3min walk test (or too ill to perform test): Yes
ECG has acute ischemic changes: No
Urea >/=12mmol/L (BUN 33.6mg/dL): No
Serum CO2>/=35mmol/L: No
Troponin I or T elevated to [place] Level (0.4mg/dL): No
NT-proBNP >/=5,000ng/L (5,000pg/ml): Yes
HF Risk Score: 4
Admission Status: HIGH RISK 26.1% Consider SNF treatment or admission to hospital
Heart Score for Chest Pain Patients
STEMI patient?: Not applicable
Withdrawal Assessment of Alcohol
Withdrawal Assessment Completed?: Not applicable
Course
Orders/Labs/Results
Orders:
Orders
11/22/24 14:16
Electrocardiogram (*1) Urgent
Reason for Study: Shortness of Breath
CR Chest - 2 Views Urgent
Comment:
Reason For Exam: sob/cough x 5 days
11/22/24 14:17
EKG- Treatment ONCE
11/22/24 14:36
COVID-19 Antigen Urgent
Source: Nasal Swab
Complete Blood Count/With Diff Urgent
Comprehensive Metabolic Panel Urgent
NT-proBNP Urgent
Influenza A+B Rapid Molecular Urgent
SALMA Source: Nasal Swab
Specimen Description:
11/22/24 18:25
EKG [Electrocardiogram (*1)] Urgent
Reason for Study: Shortness of Breath
EKG- Treatment ONCE
11/22/24 18:27
Furosemide [Lasix] 40 mg IV NOW STA
Ipratropium/Albuterol Sulfate [Duoneb] 3 ml INH R NOW ONE
LevoFLOXacin 750 MG/150 ML [Levaquin] 750 mg in 150 ml IV NOW
Prednisone [Deltasone] 50 mg PO NOW STA
11/22/24 19:35
Propranolol [Inderal] 60 mg PO NOW STA
Valsartan [Diovan] 160 mg PO NOW STA
11/22/24 19:55
Admit/Transfer Patient As Directed
Co-Sign Provider:
Level of Care: Inpatient admission
Assign to:: Telemetry
Physician / Group: Gene Yeh
Diagnosis: Pneumonia, sepsis, asthma exacerbation, HF
Reason for Telemetry: Acute Heart Failure
Date to Stop Telemetry: 11/25/24
Time to Stop Telemetry: 11:00
Reason for Hospitalization: Pneumonia, sepsis, asthma exacerbation, HF
Expected length of stay greater than two midnights?: Yes
ELOS- Estimated Length of Stay in days: 3
I certify the patient meets the requirements for IP care: Yes
PRN Pain Medication Management As Directed
May give lesser potent ordered pain med per pt: Yes
preference::
Protocol:: Medication orders for pain may be administered in a
manner that supports deferring to patient preference
when the pt is:
- Requesting an ordered lesser potent pain medication.
Least to most potent pain medications are defined
as: acetaminophen < NSAID < tramadol < opioids
(morphine, oxycodone, hydromorphone).
- Requesting a lesser dose of the same medication IF
ORDERED.
- Requesting a less intrusive route of administration
if both routes are prescribed by the provider (PO <
IV).
11/22/24 19:57
Code Status As Directed
Resuscitation Status: Do not resuscitate
Reached after discussion with pt or family/Healthcare POA: Yes
Decision communicated with: patient
DNR Bracelet Application ONCE
11/22/24 20:31
Carbidopa/Levodopa [Sinemet 25-100] 2 tablet PO NOW STA
11/25/24 11:00
DC Protocol for Telemetry ONCE
Abnormal Lab Results
11/22/24
14:36
WBC 15.1 H 10^3/uL
(4.8-10.8)
Hgb 16.1 H g/dL
(12.0-16.0)
Hct 47.1 H %
(37.0-47.0)
Plt Count 542 H 10^3/uL
(130-400)
MPV 10.6 H fL
(7.4-10.4)
Abs Immat Gran (auto) 0.1 H 10^3/uL
(0-0.05)
Absolute Neuts (auto) 12.3 H 10^3/uL
(1.4-6.5)
Absolute Monos (auto) 1.1 H 10^3/uL
(0.1-0.6)
Neutrophils % 81.4 H %
(42.2-75.2)
Lymphocytes % 9.6 L %
(20.5-51.1)
Glucose 125 H mg/dl
(70-99)
Total Bilirubin 1.8 H mg/dl
(0.2-1.3)
11/22/24 14:36
11/22/24 14:36
Vital Signs
Initial and Last Documented VS:
Initial Vital Signs
Temp Pulse Resp BP Pulse Ox
97.4 F 75 24 195/110 92
11/22/24 14:12 11/22/24 14:12 11/22/24 14:12 11/22/24 14:12 11/22/24 14:12
Last Documented Vital Signs
Temp Pulse Resp BP Pulse Ox
98.2 F 99 30 122/102 95
11/22/24 20:02 11/22/24 20:00 11/22/24 20:02 11/22/24 19:50 11/22/24 20:02
MDM/Problems Addressed
Differential Diagnosis Includes:
COVID, flu, pneumonia, CHF, acute asthma exacerbation, viral syndrome
MDM/Problems Addressed:
89-year-old female presenting to the ER for evaluation at request of primary care provider for 5 days of cold and flulike symptoms. Patient with noted asthma exacerbation as well with expiratory wheezing on exam. Pulse ox between 89% and 94% room
air during my examination. Expiratory wheezing and rales noted on exam. Labs were initiated in triage which reveal a leukocytosis of 15,000. Patient has a significantly elevated BNP of greater than 7000 and chest x-ray shows right-sided pneumonia
versus small effusion. Will treat with antibiotics, Lasix and prednisone. Given her age and comorbidities plan to admit for further evaluation and treatment.
Chronic conditions affecting care: Asthma
Acute Exacerbation and/or Progression of Chronic Illness: Asthma
*Radiology
Radiology exam reviewed: preliminary read by ED provider (Right lower lobe pneumonia)
*Pulse Oximetry
Patient hypoxic: yes
*EKG
Interpreted by ED Provider?: Yes
Heart Rate: 87
Rate: normal
Rhythm: sinus and PAC's
Morgan: normal axis
Interval: long QT
*Dairy Consultant Interpretation
Heart Rate: 87
Rhythm: sinus and PAC's
*Critical Care Note
Total Time (30-74mins, 75-104mins- exclusive of procedures): Not Applicable
Patient Management
Discussion with other providers: Hospitalist
Escalation/DeEscalation of care consider admission/obs:
Hospitalist team accepts for continued evaluation and treatment
ED Attending Note
-
Portions of this chart may have been created with voice recognition software.� Occasional wrong word or��sound alike� substitutions may have occurred due to the inherent limitations of voice recognition software.
Discharge Plan
Departure
Patient Disposition: Admit
Date of Disposition: 11/22/24
Time of Disposition: 18:31
Presentation/result/management discussed w/ accepting MD/DO: Hospitalist
Discharge Problem:
Pneumonia, Asthma exacerbation, CHF (congestive heart failure), Hypoxia
Interventions
Interventions:
*Risk Screen - Suicide Last Done: 11/22/24 14:12
*General Assessment Last Done: 11/22/24 14:12
*Neglect/Abuse Screening Last Done: 11/22/24 14:12
ED- Cardiac Assessment Last Done: 11/22/24 19:46
ED- Pulmonary Assessment Last Done: 11/22/24 18:44
[2024-11-22] MEDS: DUONEB 3 ML INH ×2 (18:32→22:19)
[2024-11-22] MEDS: DELTASONE 50 MG PO (18:33)
--- NOTE | 2024-11-22 18:42 | HPS.HSE ---
Addendum entered and electronically signed by Gene Yeh DO 11/22/24 21:01:
Patient seen and examined independently. Agree with findings and plan as set forth by GOGO Bray.
Patient is an 89y F with PMH significant for hypertension and essential tremor who presents to ED complaining of 5 days of cough and SOB. Patient states that a home health aide was recently ill with similar symptoms. Patient describes 'junky'
cough. No fevers / chills. No GI or complaints. No chest pain, palpitations or LE edema.
Ass:
RLL Pneumonia
Sepsis secondary to the above
Acute Hypoxemic Respiratory Insufficiency secondary to the above
Benign Hypertension
Benign Essential Tremor
Plan:
Admit for further evaluation and treatment.
Patient presents with tachycardia, tachypnea, leukocytosis and RLL pneumonia on CXR.
Clinical history, exam and CXR findings are most c/w R base pneumonia.
IV abx with levofloxacin given allergy profile.
Supportive care with nebs, mucolytics, O2 support, etc.
Will check Echo - but clinically not consistent with CHF.
Continue valsartan and Sinemet.
Follow for clinical improvement.
Original Note:
Family Physician
-
Family Physician: Sue Howell MD
Chief Complaint
-
Cough and shortness of breath
History of Present Illness
Patient is a 89-year-old female with past medical history significant for hypertension, hypercholesterolemia, and asthma ho presented to [facility] ED for evaluation of cough and shortness of breath over the past 5 days. Patient states she has a
24-hour live in aide who was sick and she believes this is how everything started. She had her son take her this morning to primary care doctor who recommended she come to ED for evaluation and treatment. Patient reports over the past 5 days she has
had a worsening cough and shortness of breath associated with decreased appetite. Patient denies any fever, chills, chest pain, palpitations, nausea, vomiting, constipation, diarrhea or urinary symptoms.
Medical History
Past Medical History
Past Medical History: Reports Other
Additional Past Medical History:
hypertension
hypercholesterolemia
asthma
essential tremor
hx squamous cell carcinoma
Past Surgical History: Reports Other
Additional Past Surgical History:
LT L4-L5
left breast lumpectomy
Social History
Tobacco: Non-smoker
Alcohol: Occasional
Drug: None
Living: Other (live in 24-hour caregiver)
Employment: Retired
Family History
Family History: Not pertinent
Allergies / Home Medications
Allergies reflects when Allergies were last updated in [employer].
Home Medications with original date entered in [employer]
Allergy/Medication List:
Allergies
Allergy/AdvReac Type Severity Reaction Status Date / Time
Cephalosporins Allergy Unknown Unknown Verified 05/29/24 11:22
clindamycin Allergy Unknown Verified 05/29/24 11:22
Penicillins Allergy Unknown Verified 05/29/24 11:22
Home Medications
acetaminophen 325 mg tablet 650 mg PO Q4HPRN PRN mild pain 04/04/23
albuterol sulfate 90 mcg/actuation aerosol inhaler 2 puff inhalation R Q6HPRN PRN wheezing 04/04/23
calcium carbonate 500 mg PO BID 04/19/24
carbidopa 25 mg-levodopa 100 mg tablet 2 tab PO QID 04/19/24
propranolol 60 mg capsule,24 hr,extended release 60 mg PO QPM 04/19/24
valsartan 160 mg tablet 160 mg PO QPM 04/19/24
fluticasone 100 mcg-salmeterol 50 mcg/dose blistr powdr for inhalation (Advair Diskus) 1 inh inhalation R BID 11/22/24
therapeutic multivitamin 1 tab PO DAILY 11/22/24
Review of Systems
-
History Source: Patient
Constitutional: Reports Weight Loss and Other (decreased appetite)
EENT: Reports No Symptoms
Respiratory: Reports Cough and Other (shortness of breath)
Cardiac: Reports No Symptoms
Abdomen/GI: Reports No Symptoms
: Reports No Symptoms
Musculoskeletal: Reports No Symptoms
Skin: Reports No Symptoms
Neurological: Reports No Symptoms
Endocrine: Reports No Symptoms
Hematologic/Lymphatic: Reports No Symptoms
Psych: Reports No Symptoms
Physical Exam
Vital Signs
Vital Signs
Temp Pulse Resp BP Pulse Ox
97.4 F 81 28 215/99 90
11/22/24 14:12 11/22/24 17:33 11/22/24 17:33 11/22/24 17:32 11/22/24 17:33
Physical Exam
General: Well Developed, Well Nourished and No Apparent Distress
HEENT: NormoCephalic, Moist mucous membranes, Atraumatic, Cowan Conjunctivae, Nose Appears Normal and Ears Appear Normal
Respiratory: Clear, Crackles and Decreased Breath Sounds
Cardiac: S1/S2 and Regular Rhythm; No Murmur, Rub or Gallop
Breast: Deferred by me
GI: Soft, Non Tender, Non Distended and Normal Bowel Sounds; No Organomegaly
Rectal: Deferred by Provider
Genito-urinary: Deferred by me
Musculoskeletal: No Clubbing, No Cyanosis and No Edema
Skin: Warm and IV/Catheter Site; No Rash
Neuro: Awake, Alert, AO x 3 and Nonfocal/grossly intact
Hematologic/Lymphatic: No Lymphadenopathy
Psych: Calm and Intact Judgment/Insight
Laboratory Results
-
11/22/24 14:36
11/22/24 14:36
Laboratory Results
Total Bilirubin 1.8 mg/dl (0.2-1.3) H 11/22/24 14:36
AST 30 U/L (14-36) 11/22/24 14:36
ALT 23 U/L (0-35) 11/22/24 14:36
Alkaline Phosphatase 102 U/L (38-126) 11/22/24 14:36
Data Reviewed
-
Diagnostic Radiology: Report Reviewed by me (CXR: There is a new right basilar infiltrate, favored to represent pneumonia. Diffuse osteopenia with chronic compression deformities in the midthoracic spine.)
Medical Tests (Nuc Med, Echo, EKG etc): Report Reviewed by me (EKG: SINUS RHYTHM WITH PREMATURE ATRIAL COMPLEXES POSSIBLE LEFT ATRIAL ENLARGEMENT T WAVE ABNORMALITY, CONSIDER INFERIOR ISCHEMIA PROLONGED QT)
Lab Data: Labs Reviewed by me (WBC 15.1, BNP 7020)
Impression/Plan
-
IMPRESSION/PLAN:
#Sepsis secondary to pneumonia
#asthma exacerbation r/t above
CXR: There is a new right basilar infiltrate, favored to represent pneumonia.
Diffuse osteopenia with chronic compression deformities in the midthoracic spine.
WBC 15.1
- Admit to telemetry
- Influenza and covid negative
- IV Levaquin
- DuoNebs
#hypertension
- continue propranolol and valsartan
#essential tremor
- continue carbidopa-levodopa
#hypercholesterolemia
#hx squamous cell carcinoma
Code Status: DNR
DVT Prophylaxis: Lovenox Sq
[2024-11-22] MEDS: LEVAQUIN 150 IV (18:52)
[2024-11-22] MEDS: LASIX 40 MG IV (18:53)
[2024-11-22] MEDS: DIOVAN 160 MG PO (19:49)
[2024-11-22] MEDS: INDERAL 60 MG PO (19:50)
[2024-11-22] MEDS: SINEMET 25-100 2 TABLET PO (21:33)
[2024-11-22] MEDS: ADVAIR HFA 45/21 MCG INHALER 2 PUFF INH (22:19)
[2024-11-22] MEDS: OSCAL CAL 500 PO (22:51)
--- NOTE | 2024-11-23 01:47 | PTCARENOTE ---
Late entry: received pt to floor at 2150. pt oriented to room and inst workers' compensation claims examiner braxton and POC. Admission assessment completed. Pt placed on Tele #14, and 2L O2 via NC. Call braxton with in reach.
[2024-11-23 03:50] VITALS: BP 131/79
[2024-11-23 07:13] LABS: Hematocrit 45.1 % (37.0-47.0); Hemoglobin 15.6 g/dL (12.0-16.0); Mean Corp Hgb Conc. 34.6 g/dL (33.0-37.0); Mean Corpuscular Hgb 31.4 pg (27.0-31.0); Mean Corpuscular Volume 90.7 fL (81.0-99.0); Mean Platelet Volume 10.8 fL (7.4-10.4); Platelet Count 496 10^3/uL (130-400); Red Blood Cell Count 4.97 10^6/uL (4.20-5.40); White Blood Cell Count 10.6 10^3/uL (4.8-10.8)
[2024-11-23 07:20] VITALS: BP 170/108
[2024-11-23 07:22] LABS: Blood Urea Nitrogen 20 mg/dl (7-17); Calcium 9.1 mg/dl (8.4-10.2); Carbon Dioxide 26 mmol/L (22-30); Chloride 97 mmol/L (98-107); Estimated Creatinine Clearance 42 ml/min; Glucose 140 mg/dl (70-99); HDL Cholesterol 54 mg/dl; LDL Cholesterol, Calculated 129 mg/dl; Potassium 4.1 mmol/L (3.5-5.1); Sodium 137 mmol/L (135-145); Total Cholesterol 199 mg/dl (50-199); Triglyceride 82 mg/dl (10-149); Very Low Density Lipoprotein 16 mg/dl (0-30); eGFR > 60.00
[2024-11-23] MEDS: DUONEB 3 ML INH ×4 (07:25→19:30)
[2024-11-23] MEDS: ADVAIR HFA 45/21 MCG INHALER 2 PUFF INH ×2 (07:26→19:29)
[2024-11-23] MEDS: SINEMET 25-100 2 TABLET PO (08:06)
[2024-11-23] MEDS: THERAGRAN 1 TABLET PO (08:06)
[2024-11-23] MEDS: OSCAL CAL 500 500 MG PO ×2 (08:06→21:15)
[2024-11-23] MEDS: MUCINEX PO ×2 (08:07→21:15)
[2024-11-23 09:30] VITALS: BMI 18.3
--- NOTE | 2024-11-23 11:44 | W.PN.HOSP.TC ---
Today's Communication/Plan
-
transfer to med/surg
cont current management
wean O2 as tolerated
Assessment / Plan
Assessment / Plan
pt is an 89 year old female
sepsis (POA) due to pneumonia--covid/flu neg--cont IV levaquin, nebs--consider pulm consult
essential hypertension - continue propranolol and valsartan with parameters
essential tremor - continue carbidopa-levodopa--takes 1.5 tabs daily
HLD--noted--no meds
hx squamous cell carcinoma
DVT proph -- lovenox
Code Status: DNR
Anticipated Discharge: > 48 hours
Subjective/Interval History
-
Date of Service: November 23, 2024
pt thinks breathing a bit better
Objective Data
-
Labs:
Laboratory Results
11/23/24
06:28
WBC 10.6
Hgb 15.6
Hct 45.1
Plt Count 496 H
Sodium 137
Potassium 4.1
Chloride 97 L
Carbon Dioxide 26
BUN 20 H
Creatinine 0.7
Glucose 140 H
Calcium 9.1
Vital Signs:
max temp for 24 hours
11/22/24
22:06
Temp 98.5 F
Vital Signs
Temp Pulse Resp BP Pulse Ox
97.5 F 76 18 170/108 93
11/23/24 07:20 11/23/24 07:28 11/23/24 07:28 11/23/24 07:20 11/23/24 08:04
Review of Systems
-
All other systems: Reviewed and negative
Physical Exam
-
General: Other (elderly frail appearing female in no apparent distress)
HEENT: Normocephalic, Atraumatic and Oxygen (2L)
Respiratory: Decreased Breath Sounds
Cardiac: Regular Rhythm and S1/S2; Negative Murmur
GI: Soft, Nontender, Nondistended and Normal Bowel Sounds
Musculoskeletal: No Clubbing, No Cyanosis and No Edema
Skin: Warm
Neuro: Awake and Tremors
Psych: Calm
--- NOTE | 2024-11-23 12:51 | CM ---
CM following re: discharge planning.
Reviewed pt's chart, met with pt.
Pt is an 89 year old female, admitted with primary dx of Sepsis, Asthma exacerbation.
Pt reports she lives alone in an apartment, 4th floor with elevator, has supportive son, has 24/7 caregiver services provided by home helpers [facility]. Pt reports she ambulates with a walker, has a wheelchair, was at [facility] in the past and per
pt she did not have a good experience and she would avoid going there next time. Pt reports [facility]. Pt expressed her dire to return back home with 24/7 caregiver services and [facility].
PT and OT will evaluate the pt to determine a level of care at discharge.
PCP: Sue Howell
Pharmacy: [facility]
D/C plan: most likely home with [facility], resumptions of caregiver services and family support.
CM will follow with discharge plan updates as hospitalization progresses
[2024-11-23] MEDS: SINEMET 25-100 1.5 TABLET PO ×3 (14:06→21:15)
[2024-11-23 15:30] VITALS: BP 105/64
--- NOTE | 2024-11-23 16:11 | PTCARENOTE ---
Pt AAO x3, FRANCOIS slowly/stiffly; OOB to chair with assist x1/walker, ji well. Pt has (+) arm tremors. VSS. On nc 2 lpm- -pulse ox 99%, pt with occ non-productive cough, denies SOB. Abd soft, sl rounded, ji PO well. Pt c/o occ nausea 'since
admission', no vomiting noted; Dr. Murcia notified. Incont large amts urine. Resting in chair at present. Will continue to monitor.
[2024-11-23] MEDS: ZOFRAN 4 MG IV (16:45)
[2024-11-23] MEDS: FLUSH (NSS) 1 FLUSH IV ×2 (16:45→17:25)
[2024-11-23] MEDS: DIOVAN 160 MG PO (17:23)
[2024-11-23] MEDS: INDERAL LA 60 MG PO (17:23)
[2024-11-23] MEDS: LOVENOX 40 MG SC (17:25)
[2024-11-23] MEDS: LEVAQUIN 100 IV (17:25)
[2024-11-23 23:18] VITALS: BP 131/72
[2024-11-24] MEDS: ZOFRAN 4 MG IV (00:35)
[2024-11-24 06:00] VITALS: BMI 18.8
[2024-11-24 06:15] LABS: Hematocrit 42.9 % (37.0-47.0); Hemoglobin 14.7 g/dL (12.0-16.0); Mean Corp Hgb Conc. 34.3 g/dL (33.0-37.0); Mean Corpuscular Hgb 31.2 pg (27.0-31.0); Mean Corpuscular Volume 91.1 fL (81.0-99.0); Mean Platelet Volume 10.4 fL (7.4-10.4); Platelet Count 467 10^3/uL (130-400); Red Blood Cell Count 4.71 10^6/uL (4.20-5.40); Red Cell Dist. Width 14.3 % (11.5-14.5); White Blood Cell Count 14.1 10^3/uL (4.8-10.8)
[2024-11-24 06:42] LABS: Blood Urea Nitrogen 39 mg/dl (7-17); Calcium 9.7 mg/dl (8.4-10.2); Carbon Dioxide 28 mmol/L (22-30); Chloride 97 mmol/L (98-107); Estimated Creatinine Clearance 20 ml/min; Glucose 104 mg/dl (70-99); Potassium 3.9 mmol/L (3.5-5.1); Sodium 134 mmol/L (135-145); eGFR 33.52
[2024-11-24] MEDS: DUONEB 3 ML INH ×4 (07:24→19:15)
[2024-11-24] MEDS: ADVAIR HFA 45/21 MCG INHALER 2 PUFF INH ×2 (07:25→19:15)
[2024-11-24 07:26] VITALS: BP 148/85
[2024-11-24] MEDS: MUCINEX PO ×2 (08:10→19:33)
[2024-11-24] MEDS: OSCAL CAL 500 PO ×3 (08:11→19:33)
[2024-11-24] MEDS: THERAGRAN PO ×2 (08:11→09:24)
[2024-11-24] MEDS: SINEMET 25-100 1.5 TABLET PO ×3 (08:11→17:32)
--- NOTE | 2024-11-24 10:58 | W.PN.HOSP.TC ---
Today's Communication/Plan
-
stop zofran and levaquin
change to phenergan and doxy
hopeful d/c tomorrow
Assessment / Plan
Assessment / Plan
pt is an 89 year old female
sepsis (POA) due to pneumonia--covid/flu neg--change IV levaquin to oral doxy, nebs--consider pulm consult
n/v--likely from the IV levaquin--will stop--change zofran to phenergan--compazine interacts with sinemet
essential hypertension - continue propranolol and valsartan with parameters
essential tremor - continue carbidopa-levodopa--takes 1.5 tabs daily
HLD--noted--no meds
hx squamous cell carcinoma
DVT proph -- lovenox
Code Status: DNR
Anticipated Discharge: Within 24 hours
Subjective/Interval History
-
Date of Service: November 24, 2024
pt c/o nausea and upset stomach
Objective Data
-
Labs:
Laboratory Results
11/24/24
06:04
WBC 14.1 H
Hgb 14.7
Hct 42.9
Plt Count 467 H
Sodium 134 L
Potassium 3.9
Chloride 97 L
Carbon Dioxide 28
BUN 39 H
Creatinine 1.5 H
Glucose 104 H
Calcium 9.7
Vital Signs:
max temp for 24 hours
11/23/24
23:18
Temp 97.6 F
Vital Signs
Temp Pulse Resp BP Pulse Ox
98.3 F 82 16 148/85 90
11/24/24 07:26 11/24/24 07:27 11/24/24 07:27 11/24/24 07:26 11/24/24 08:00
I&O
11/23/24 11/24/24 11/25/24
06:59 06:59 06:59
Intake Total 1000 / 1000
Balance 1000 / 1000
Review of Systems
-
All other systems: Reviewed and negative
Abdomen/GI: Reports Nausea
Physical Exam
-
General: Appears Chronically Ill
HEENT: Normocephalic and Atraumatic
Respiratory: Clear to Auscultation; Negative Wheezes or Rhonchi
Cardiac: Regular Rhythm and S1/S2; Negative Murmur
GI: Soft, Nontender, Nondistended and Normal Bowel Sounds
Musculoskeletal: No Clubbing, No Cyanosis and No Edema
Neuro: Awake and Alert
Psych: Calm
[2024-11-24 14:32] VITALS: BMI 18.8
[2024-11-24 15:12] VITALS: BP 149/82
[2024-11-24] MEDS: DIOVAN 160 MG PO (17:31)
[2024-11-24] MEDS: INDERAL LA 60 MG PO (17:32)
[2024-11-24] MEDS: LOVENOX 40 MG SC (17:33)
[2024-11-24] MEDS: VIBRAMYCIN 100 MG PO (19:35)
[2024-11-24] MEDS: SINEMET 25-100 PO (21:43)
--- NOTE | 2024-11-24 23:09 | PTCARENOTE ---
Pts pox 88 % RA- placed 2 L NC came up to 93%. Denies SOB at this time. House BAR STAFF order for O2.
[2024-11-24 23:29] VITALS: BP 155/70
[2024-11-25 06:00] VITALS: BMI 18.6
--- NOTE | 2024-11-25 07:13 | W.PN.HOSP.TC ---
Addendum entered and electronically signed by Kimmy Murcia MD 11/25/24 19:55:
I saw and evaluated the patient independently. I reviewed the resident�s note and agree with findings and plan as documented by Dr. Waldron.
GENERAL: elderly frail appearing female in no apparent distress
HEENT: NC/AT--O2 NC [address]
HEART: regular rate and rhythm, +S1, +S2, TYREE
LUNGS : rhonchi bilaterally
ABDOM: soft, nontender, nondistended, + bowel sounds
EXT: no cyanosis, clubbing, or edema
NEUROLOGIC: grossly intact
sepsis (POA) with acute hypoxemic resp insufficency due to pneumonia--covid/flu neg--change IV levaquin to oral doxy, nebs--consider pulm consult--assess for home O2
n/v--likely from the IV levaquin--will stop--change zofran to phenergan--compazine interacts with sinemet--doing better
essential hypertension - continue propranolol and valsartan with parameters
essential tremor - continue carbidopa-levodopa--takes 1.5 tabs daily
HLD--noted--no meds
hx squamous cell carcinoma
DVT proph -- lovenox
Code Status: DNR
Original Note:
Today's Communication/Plan
-
Home 02 assessment tomorrow
Continue doxycycline
Assessment / Plan
Assessment / Plan
Impression:Patient is an 89y F with PMH significant for hypertension and essential tremor who presented to ED complaining of 5 days of cough and SOB.
Assessment/Plan:
#Sepsis (POA) due to pneumonia
-covid/flu neg
-Initially was on IV levaquin then changed to oral doxy, nebs (due to nausea and vomiting)
-consider pulm consult
-Continue phenergan prn
-Pt has been on 2L nasal cannula of 02 but dipped to 87% upon weaning on room air/rest (?possible need for home o2 for oxygen sat improvement, no change with nebs)
-PT to assess for home 02
#essential hypertension
- continue propranolol and valsartan with parameters
#essential tremor
- continue carbidopa-levodopa--takes 1.5 tabs daily
#HLD
-noted--no meds
#hx squamous cell carcinoma
DVT proph -- lovenox
Code Status: DNR
Anticipated Discharge: 24 - 48 hours
Subjective/Interval History
-
Date of Service: November 25, 2024
Patient continues to feel short of breath but denies any fever or chills.
Objective Data
-
Labs:
Laboratory Results
11/25/24
06:00
WBC Pending
Hgb Pending
Hct Pending
Plt Count Pending
Sodium Pending
Potassium Pending
Chloride Pending
Carbon Dioxide Pending
BUN Pending
Creatinine Pending
Glucose Pending
Calcium Pending
Vital Signs:
Vital Signs
Temp Pulse Resp BP Pulse Ox
97.9 F 72 16 155/70 96
11/24/24 23:29 11/24/24 23:29 11/24/24 23:29 11/24/24 23:29 11/24/24 23:29
I&O
11/24/24 11/25/24 11/26/24
06:59 06:59 06:59
Intake Total 1000 / 1000 480 / 480
Balance 1000 / 1000 480 / 480
Review of Systems
-
Constitutional: Denies Fever or Chills
Respiratory: Reports Trouble Breathing; Denies Cough
Cardiac: Denies Chest Pain
Abdomen/GI: Denies Abdominal Pain
Skin: Reports No Symptoms
Neuro: Reports No Symptoms
Physical Exam
-
General: No Apparent Distress
HEENT: Normocephalic
Cardiac: Regular Rhythm and S1/S2
GI: Soft, Nontender and Nondistended
Musculoskeletal: No Edema
Skin: Warm and Dry
Neuro: Awake, Alert and Oriented
Psych: Calm
[2024-11-25] MEDS: ADVAIR HFA 45/21 MCG INHALER 2 PUFF INH ×2 (07:29→19:17)
[2024-11-25] MEDS: DUONEB 3 ML INH ×4 (07:30→19:17)
[2024-11-25 07:43] VITALS: BP 165/80
[2024-11-25] MEDS: VIBRAMYCIN 100 MG PO ×2 (08:31→20:55)
[2024-11-25] MEDS: SINEMET 25-100 1.5 TABLET PO ×4 (08:32→20:55)
[2024-11-25] MEDS: OSCAL CAL 500 500 MG PO ×2 (08:32→20:54)
[2024-11-25] MEDS: MUCINEX PO (08:36)
[2024-11-25] MEDS: THERAGRAN PO (08:36)
[2024-11-25 09:28] LABS: Hematocrit 44.8 % (37.0-47.0); Mean Corp Hgb Conc. 33.5 g/dL (33.0-37.0); Mean Corpuscular Hgb 31.3 pg (27.0-31.0); Mean Corpuscular Volume 93.3 fL (81.0-99.0); Mean Platelet Volume 10.5 fL (7.4-10.4); Platelet Count 469 10^3/uL (130-400); White Blood Cell Count 10.8 10^3/uL (4.8-10.8)
--- NOTE | 2024-11-25 09:49 | VNURNOTE ---
Home Health Liaison met with patient to discuss [facility] nurse/therapy, visits, schedule and homebound status. Patient is agreeable and understands that visits at home will be 2-3 x per week to assess and teach medical management. [facility] brochure provided
with contact information. Patient is aware that [facility] will contact them for start of care in 1-2 days after discharge from . Watching for new home 02 needs.
[facility] referral completed in [facility].
[2024-11-25 10:44] LABS: Blood Urea Nitrogen 26 mg/dl (7-17); Calcium 9.4 mg/dl (8.4-10.2); Carbon Dioxide 28 mmol/L (22-30); Chloride 98 mmol/L (98-107); Estimated Creatinine Clearance 33 ml/min; Glucose 172 mg/dl (70-99); Potassium 3.9 mmol/L (3.5-5.1); Sodium 137 mmol/L (135-145); eGFR > 60.00
--- NOTE | 2024-11-25 14:56 | PN.CDI ---
Addendum entered and electronically signed by Kimmy Murcia MD 11/26/24 14:07:
Insignificant lab value--likely erroneous
Original Note:
CDI
- -
CDI:
Physician Documentation Request
Admit Date: 11/22/24 20:38
Dear Doctor Twin,
Patient admitted for management of sepsis due to pneumonia.
Creatinine results:
Laboratory Tests
11/23/24 11/24/24 11/25/24
06:28 06:04 08:48
Creatinine 0.7 1.5 H 0.9
Could you please provide a diagnosis that supports the above lab abnormalities and additional evaluation/ monitoring:
FEDE
abnormal lab value clinically insignificant
Other
Criteria for FEDE*
1 Increase in serum creatinine by > or = to 0.3 mg/dL (> or = to 26.5 micromol/L) within 48 hours, OR
2 Increase in serum creatinine to > or = to 1.5 times baseline, which is known or presumed to have occurred within 7 days, OR
3 Urine volume < 0.5 nL/kg/hour for six hours
Use of terms such as suspected, likely, concern for, or probable (associated with a specific diagnosis that is being evaluated, monitored, or treated as if it exists) are acceptable and can be coded in the inpatient setting, when documented at the
time of discharge.
Thank you,
Maribel Larson RN, BSN
CDI Specialist
tiger text
Please use your independent medical judgment in providing your response.
--- NOTE | 2024-11-25 15:00 | PN.CDI ---
CDI
- -
CDI:
Physician Documentation Request
Admit Date: 11/22/24 20:38
Dear Doctor Twin,
The diagnosis of congestive heart failure was documented on 11/22 In ED record, but is not consistently noted in subsequent documentation.
11/22 BNP 7020 previously 1560 on 04/19/24
40 mg IV lasix was given in ED.
Please clarify the following:
____ - congestive heart failure was present on admission -please include type and acuity
____ - congestive heart failure was ruled out
____ - Other
Use of terms such as suspected, likely, concern for, or probable (associated with a specific diagnosis that is being evaluated, monitored, or treated as if it exists) are acceptable and can be coded in the inpatient setting, when documented at the
time of discharge.
Thank you,
Maribel Larson RN, BSN
CDI Specialist
tiger text
Please use your independent medical judgment in providing your response.
[2024-11-25 15:06] VITALS: BP 123/66
--- NOTE | 2024-11-25 15:40 | CM ---
Patient seen at bedside with physician. Patient to be followed by [facility] and now qualifies for home O2. CM reviewed options and patient requested [employer] after review of PAC data. CM provided IMM form for review and will continue to follow for
discharge planning needs.
Plan; home with [facility] and home O2; liaison made aware.
[2024-11-25] MEDS: INDERAL LA 60 MG PO (17:03)
[2024-11-25] MEDS: LOVENOX 40 MG SC (17:03)
[2024-11-25] MEDS: DIOVAN 160 MG PO (17:03)
[2024-11-25] MEDS: MUCINEX 600 MG PO (20:54)
[2024-11-25 23:47] VITALS: BP 139/73
[2024-11-26 06:00] VITALS: BMI 18.9
--- NOTE | 2024-11-26 07:15 | W.PN.HOSP.TC ---
Addendum entered and electronically signed by Kimmy Murcia MD 11/26/24 14:05:
I saw and evaluated the patient independently. I reviewed the resident�s note and agree with findings and plan as documented by Dr. Waldron.
GENERAL: elderly frail appearing female in no apparent distress
HEENT: NC/AT--O2 off at rest
HEART: regular rate and rhythm, +S1, +S2, TYREE
LUNGS : rhonchi bilaterally
ABDOM: soft, nontender, nondistended, + bowel sounds
EXT: no cyanosis, clubbing, or edema
NEUROLOGIC: grossly intact
sepsis (POA) with acute hypoxemic resp insufficiency due to pneumonia--covid/flu neg--change IV levaquin to oral doxy, nebs--consider pulm consult--qualifies for home O2 --CHF was ruled out
Patient is in need of oxygen at 2 liters/minute via nasal cannula continuously due to pulse oximetry of 88% on room air at rest. Oxygen will help to improve hypoxemia. Patient is mobile within the home. DuoNeb therapy has been tried and is
ineffective in treating hypoxemia related symptoms. Oxygen is needed to improve symptoms.
n/v--likely from the IV levaquin--will stop--change zofran to phenergan--compazine interacts with sinemet--doing better
essential hypertension - continue propranolol and valsartan with parameters
essential tremor - continue carbidopa-levodopa--takes 1.5 tabs daily
HLD--noted--no meds
hx squamous cell carcinoma
DVT proph -- lovenox
Code Status: DNR
ok for d/c
Original Note:
Today's Communication/Plan
-
oral doxycycline to continue on discharge
home o2
Assessment / Plan
Assessment / Plan
Impression:Patient is an 89y F with PMH significant for hypertension and essential tremor who presented to ED complaining of 5 days of cough and SOB.
Assessment/Plan:
#Sepsis (POA) due to pneumonia
-covid/flu neg
-Initially was on IV levaquin then changed to oral doxy, nebs (due to nausea and vomiting)
-consider pulm consult
-Continue phenergan prn
-Pt has been on 2L nasal cannula of 02 but dipped to 87% upon weaning on room air/rest (?possible need for home o2 for oxygen sat improvement, no change with nebs)
-PT/OT consulted:
Patient is in need of oxygen on exertion due to pulse oximetry of 88% on room air at rest; Shortness of breath on exertion
Patient was placed on 2L O2 via nasal cannula with saturation of 93%. Oxygen will help to improve hypoxemia.
Patient is mobile within the home. Albuterol therapy has been discussed and is ineffective in treating hypoxemia-related symptoms.
Oxygen will improve the patient's symptoms.
-Patient stable for discharge with home 02
#essential hypertension
- continue propranolol and valsartan with parameters
#essential tremor
- continue carbidopa-levodopa--takes 1.5 tabs daily
#HLD
-noted--no meds
#hx squamous cell carcinoma
DVT proph -- lovenox
Code Status: DNR
Anticipated Discharge: Within 24 hours
Subjective/Interval History
-
Date of Service: November 26, 2024
Patient denies any fever, chills or abdominal pain. She still complains of cough.
Objective Data
-
Labs:
Laboratory Results
11/26/24
07:01
Sodium Pending
Potassium Pending
Chloride Pending
Carbon Dioxide Pending
BUN Pending
Creatinine Pending
Glucose Pending
Calcium Pending
Vital Signs:
Vital Signs
Temp Pulse Resp BP Pulse Ox
97.4 F 68 16 139/73 93
11/25/24 23:47 11/25/24 23:47 11/25/24 23:47 11/25/24 23:47 11/26/24 05:30
I&O
11/25/24 11/26/24 11/27/24
06:59 06:59 06:59
Intake Total 480 / 480 410 / 410
Balance 480 / 480 410 / 410
Review of Systems
-
All other systems: Reviewed and negative
Physical Exam
-
General: No Apparent Distress
HEENT: Normocephalic
Respiratory: Clear to Auscultation
Cardiac: Regular Rhythm and S1/S2
GI: Soft, Nontender and Nondistended
Musculoskeletal: No Edema
Skin: Warm and Dry
Neuro: Awake, Alert and Oriented
Psych: Calm
[2024-11-26] MEDS: ADVAIR HFA 45/21 MCG INHALER 2 PUFF INH (07:23)
[2024-11-26] MEDS: DUONEB 3 ML INH ×2 (07:23→10:55)
[2024-11-26 07:25] VITALS: BP 175/95
[2024-11-26] MEDS: SINEMET 25-100 1.5 TABLET PO ×2 (08:05→12:42)
[2024-11-26] MEDS: VIBRAMYCIN 100 MG PO (08:05)
[2024-11-26] MEDS: OSCAL CAL 500 500 MG PO (08:06)
[2024-11-26] MEDS: THERAGRAN 1 TABLET PO (08:06)
[2024-11-26] MEDS: MUCINEX PO (08:10)
[2024-11-26 09:00] VITALS: BP 132/84; PULSE 60; O2SAT 93
[2024-11-26 09:21] VITALS: BP 132/84; PULSE 64; O2SAT 93
[2024-11-26 10:25] LABS: Blood Urea Nitrogen 22 mg/dl (7-17); Calcium 9.4 mg/dl (8.4-10.2); Carbon Dioxide 32 mmol/L (22-30); Chloride 96 mmol/L (98-107); Estimated Creatinine Clearance 34 ml/min; Glucose 90 mg/dl (70-99); Potassium 3.7 mmol/L (3.5-5.1); Sodium 139 mmol/L (135-145); eGFR > 60.00
[2024-11-26 10:30] VITALS: O2SAT 92
[2024-11-26 11:09] VITALS: BP 123/61
--- NOTE | 2024-11-26 11:38 | VNURNOTE ---
Home 02 eval results reviewed. Per note, patient was unable to ambulate for test. EVIN Bailey updated. 02 DME set up/[employer] on hold for now until further direction.
--- NOTE | 2024-11-26 12:08 | VNURNOTE ---
Proceeding with new home 02 set up. Info sent and rec'ed to [facility]. She confirmed will deliver portable tank to bedside today. EVIN rebolledo.
--- NOTE | 2024-11-26 13:19 | W.DCSUMMARY ---
Addendum entered and electronically signed by Kimmy Murcia MD 11/26/24 19:01:
Read, reviewed, and agree. See same day progress note for additional details. Time spent coordinating care, DC planning, review of DC plan of care with resident, transition of care, review of records in EMR, med rec, consults, notes, d/w
consultants, nursing, family, and CM = 32 minutes
Original Note:
Discharge Summary
Discharge Data
Date of Admission: 11/22/24
Date of Discharge: 11/26/24
-
Pending Results: No
Hospital Course
Discharging Physician : ,
Disposition : Home
Primary care physician : Sue Howell MD
Principal Discharge diagnosis : Sepsis due to pneumonia, nausea/vomiting, essential hypertension, essential tremor, hyperlipidemia, history of squamous cell carcinoma
Chronic Discharge diagnosis : essential hypertension, essential tremor, hyperlipidemia, history of squamous cell carcinoma
Hospital Course : This is a 89-year-old female patient with past medical history significant for hypertension and essential tremor who presented to the ED with complaints of cough for the past 5 days and shortness of breath. Chest x-ray was done
and was consistent with right base pneumonia. COVID/flu negative. She was initially started on IV levofloxacin and supportive care. She was started on 2 L of oxygen but she does not use home O2. She experienced nausea and vomiting likely from
Levaquin which was then stopped and changed to oral doxycycline. Phenergan was given for her symptoms of nausea/vomiting. Echo was done which showed normal systolic function and no significant valvular disease. As resting oxygen saturation was
low, home assessment for O2 was done which patient was qualified for. Patient was clinically stable for discharge with home O2 and to finish doxycycline course along with following up with PCP in a week.
Important imaging findings :
11/22/2024 CXR:There is a new right basilar infiltrate, favored to represent pneumonia.
Discharge Plan
-
Patient Disposition: Home with Home Care
Discharge Diagnosis/Procedures: Sepsis due to pneumonia, nausea/vomiting, essential hypertension, essential tremor, hyperlipidemia, history of squamous cell carcinoma
Condition: Good
Diet: As tolerated and Regular
Activity: As tolerated
Driving Restrictions: As prior to admission
Bathing Restrictions: None
Other Services: VN
Referrals:
Sue Howell MD [Family Provider] - in less than 1 week
Additional Discharge Medication Instructions: If experiencing any symptoms such as worsening shortness of breath high-grade fevers or vomiting, please return to the ER. Follow-up with your family physician within a week. Take antibiotic
Doxycycline as directed.
Prescriptions:
New
doxycycline hyclate 100 mg Capsule
100 mg PO Q12 7 Days Qty: 14 0RF
Continued
acetaminophen 325 mg Tablet
650 mg PO Q4HPRN PRN (Reason: mild pain)
albuterol sulfate 90 mcg/actuation Hfa Aerosol Inhaler
2 puff INHALATION R Q6HPRN PRN (Reason: wheezing)
calcium carbonate 500 mg calcium (1,250 mg) Tablet
500 mg PO BID
therapeutic multivitamin Tablet
1 tab PO DAILY
propranolol 60 mg Capsule,Extended Release 24 Hr
60 mg PO QPM Qty: 0 0RF
fluticasone propion-salmeterol [Advair Diskus] 100-50 mcg/dose Blister With Device
1 inh INHALATION R BID Qty: 0 0RF
carbidopa-levodopa 25-100 mg Tablet
2 tab PO QID Qty: 0 0RF
valsartan 160 mg Tablet
160 mg PO QPM Qty: 0 0RF
Discharge Orders:
Discharge Patient (As Directed); Ordered 11/26/24
Ordered By: Nilsa Sandhu
Discharge Date and Time
Discharge Date/Time: 11/26/24 16:33
Print Language: LITHUANIAN
[2024-11-26 14:20] VITALS: BP 140/76
--- NOTE | 2024-11-26 14:24 | CM ---
Patient seen at bedside with physicians. Son present. IMM completed and copy of form placed on chart. Patient for discharge home with [facility] and home O2 delivered by [employer]. CM will continue to follow for discharge planning needs.
Plan; home with [facility] and [facility] for home O2.
[2024-11-26] MEDS: DUONEB INH (15:21)
== END 2024-11-26 16:33 | disposition home health service (06) | DRG 871 ==
LOC: 4 EAST ACU 20:38
PROVIDERS: Emergency Medicine; Nurse Practitioner Family; Student in an Organized Health Care Education/Training Program; ADMITTING PHYSICIAN Hospitalist; ATTENDING PHYSICIAN Internal Medicine; EMERGENCY PHYSICIAN Emergency Medicine; FAMILY PHYSICIAN Emergency Medicine
DX: A41.89 Other specified sepsis (principal); J18.9 Pneumonia, unspecified organism; Z11.52 Encounter for screening for COVID-19; E78.00 Pure hypercholesterolemia, unspecified; Z66 Do not resuscitate
CPT/HCPCS: 71046; 80048; 80053; 80061; 83880; 85025; 85027; 87502; 87811; 93005; 93306; 94640; 96365; 96375; 97163; 97166; 99285

== ENCOUNTER 2025-05-22 10:08 | Emergency (ER) | payer OTHER, SELFPAY ==
[2025-05-22 10:11] VITALS: BMI 19.1
[2025-05-22 10:15] VITALS: BP 167/96
[2025-05-22 10:44] LABS: % Basophils 0.4 % (0-2); % Eosinophils 0.5 % (0-6); % Immature Granulocytes 1.2 % (0-0.5); % Lymphocytes 8.5 % (20.5-51.1); % Monocytes 14.4 % (1.7-9.3); Absolute Basophils 0.1 10^3/uL (0-0.2); Absolute Eosinophils 0.1 10^3/uL (0-0.7); Absolute Immature Granulocytes 0.2 10^3/uL (0-0.05); Absolute Lymphocytes 1.4 10^3/uL (1.2-3.4); Absolute Monocytes 2.4 10^3/uL (0.1-0.6); Absolute Neutrophils 12.4 10^3/uL (1.4-6.5); Hematocrit 46.7 % (37.0-47.0); Hemoglobin 15.8 g/dL (12.0-16.0); Mean Corp Hgb Conc. 33.8 g/dL (33.0-37.0); Mean Corpuscular Hgb 30.9 pg (27.0-31.0); Mean Corpuscular Volume 91.4 fL (81.0-99.0); Mean Platelet Volume 10.9 fL (7.4-10.4); Nucleated Red Blood Cells % 0 %; Platelet Count 292 10^3/uL (130-400); Red Blood Cell Count 5.11 10^6/uL (4.20-5.40); Red Cell Dist. Width 13.8 % (11.5-14.5); White Blood Cell Count 16.4 10^3/uL (4.8-10.8)
[2025-05-22 10:57] LABS: Blood Urea Nitrogen 25 mg/dl (7-17); Calcium 9.2 mg/dl (8.4-10.2); Carbon Dioxide 28 mmol/L (22-30); Chloride 105 mmol/L (98-107); Estimated Creatinine Clearance 50 ml/min; Glucose 155 mg/dl (70-99); Sodium 140 mmol/L (135-145); eGFR > 60.00
[2025-05-22 11:00] VITALS: BP 165/104
--- NOTE | 2025-05-22 11:05 | ED.GENMED ---
History of Present Illness
General
Chief Complaint: Breathing Problem
Time Seen by Provider: 05/22/25 10:34
History of Present Illness
History of Present Illness:
89-year-old female with history of asthma, Parkinson's, hypertension presenting to the emergency department for shortness of breath. Patient reports symptoms for the past week which she attributes to her asthma. She was placed on prednisone a week
ago which she has since finished. She is still having some dyspnea and ran out of her inhaler yesterday. Denies cough or fever. Denies any history of intubations for her asthma. Denies abdominal pain or GI symptoms. Denies additional acute
medical complaints
Past History
Past History
ED Past Medical History: Asthma, HTN and Hypercholesterolemia
ED Past Surgical History: None
Social History
Tobacco: Non-smoker
Alcohol: None
Drug: None
Personal:
Living: with family
Phy Exam
Physical Exam
Physical Exam:
General: Well-appearing, no clinical signs of dehydration, nontoxic and in no acute distress
HEENT: protecting airway
Neck: appears supple
CV: Normal heart rate, regular rhythm
Resp: No accessory muscle use, no increased work of breathing, lungs clear to auscultation bilaterally
Abd: Soft and non-distended, no tenderness to palpation, normal bowel sounds
Extremities: No deformities, no swelling
Neuro: alert, no focal neurologic deficit
: deferred
Rectal: deferred
Psych: Normal affect
Skin: Intact
Scores
Heart Failure Risk
Heart Failure Risk Score: Not Applicable
Course
Orders/Labs/Results
Orders:
Orders
05/22/25 10:19
Electrocardiogram (*1) Urgent
Reason for Study: Shortness of Breath
EKG- Treatment ONCE
05/22/25 10:32
Basic Metabolic Panel Urgent
Complete Blood Count/With Diff Urgent
05/22/25 10:58
Ipratropium/Albuterol Sulfate [Duoneb] 3 ml INH R NOW ONE
CR Chest - 2 Views Urgent
Comment:
Reason For Exam: SOB, asthma
Abnormal Lab Results
05/22/25
10:32
WBC 16.4 H 10^3/uL
(4.8-10.8)
MPV 10.9 H fL
(7.4-10.4)
Abs Immat Gran (auto) 0.2 H 10^3/uL
(0-0.05)
Absolute Neuts (auto) 12.4 H 10^3/uL
(1.4-6.5)
Absolute Monos (auto) 2.4 H 10^3/uL
(0.1-0.6)
Immature Gran % 1.2 H %
(0-0.5)
Lymphocytes % 8.5 L %
(20.5-51.1)
Monocytes % 14.4 H %
(1.7-9.3)
BUN 25 H mg/dl
(7-17)
Glucose 155 H mg/dl
(70-99)
05/22/25 10:32
05/22/25 10:32
Vital Signs
Initial and Last Documented VS:
Initial Vital Signs
Temp Pulse Ox
98.0 F 92
05/22/25 10:11 05/22/25 10:11
Last Documented Vital Signs
Temp Pulse Resp BP Pulse Ox
98.0 F 96 31 165/104 93
05/22/25 10:11 05/22/25 11:30 05/22/25 11:30 05/22/25 11:00 05/22/25 11:30
MDM/Problems Addressed
MDM/Problems Addressed:
89-year-old female with history of asthma presenting for shortness of breath. Vital signs on arrival significant for mildly low oxygen at 90%.
On exam patient is in no acute distress, no significant respiratory distress. Patient placed on nasal cannula for comfort. No significant wheezing on exam. Given duration of symptoms, will obtain laboratory analysis and chest x-ray imaging. EKG
is nonischemic. Patient without chest pain, without present concern for ACS.
11:10 - Patient with mild leukocytosis, however recently finished a course of steroids, which could be contributing to the elevation. Pending CXR
13:15 -chest x-ray without any sign of infiltration. There is mention of chronic scarring. Patient�remains stable, off supplemental O2. Patient feels well to go home, has 24-hour nursing care. Will prescribe her inhaler. Otherwise feel stable
for discharge. Return precautions discussed
*Pulse Oximetry
SaO2: 90
Oxygen Mode of Delivery: Room air
Patient hypoxic: no
*EKG
Interpreted by ED Provider?: Yes
EKG Intrepretation Date: 05/22/25
EKG Intrepretation Time: 11:07
Interpretation: normal
Comparison EKG: no changes (11/22/24)
Heart Rate: 81
Rate: normal
Rhythm: sinus
[place]: normal axis
Interval: normal interval
QRS Pattern: normal QRS
Ischemia: non-specific ST changes
*Critical Care Note
Total Time (30-74mins, 75-104mins- exclusive of procedures): Not Applicable
ED Attending Note
-
Portions of this chart may have been created with voice recognition software.� Occasional wrong word or��sound alike� substitutions may have occurred due to the inherent limitations of voice recognition software.
Discharge Plan
Departure
Patient Disposition: Home (Routine Discharge)
Date of Disposition: 05/22/25
Time of Disposition: 13:42
Patient with high blood pressure during this ER visit?: No
Condition: Good
Discharge Problem:
Asthma exacerbation
Instructions: Asthma, Adult (DC)
Prescriptions:
New
albuterol sulfate [Ventolin HFA] 90 mcg/actuation HFA aerosol inhaler
2 puff inhalation Q6H PRN (Reason: shortness of breath or wheezing) Qty: 8.5 0RF
No Action
acetaminophen 325 mg Tablet
650 mg PO Q4HPRN PRN (Reason: mild pain)
albuterol sulfate 90 mcg/actuation Hfa Aerosol Inhaler
2 puff INHALATION R Q6HPRN PRN (Reason: wheezing)
calcium carbonate 500 mg calcium (1,250 mg) Tablet
500 mg PO BID
therapeutic multivitamin Tablet
1 tab PO DAILY
doxycycline hyclate 100 mg Capsule
100 mg PO Q12 7 Days Qty: 14 0RF
propranolol 60 mg Capsule,Extended Release 24 Hr
60 mg PO QPM Qty: 0 0RF
fluticasone propion-salmeterol [Advair Diskus] 100-50 mcg/dose Blister With Device
1 inh INHALATION R BID Qty: 0 0RF
carbidopa-levodopa 25-100 mg Tablet
2 tab PO QID Qty: 0 0RF
valsartan 160 mg Tablet
160 mg PO QPM Qty: 0 0RF
Referrals:
Sue Howell MD [Family Provider, Internal Medicine]
Activity Restrictions/Additional Instructions:
You were seen in the emergency department for shortness of breath
We suspect your symptoms are from asthma. We prescribed you an albuterol inhaler.
Please follow-up closely with your primary care physician.
Return to the emergency department for any worsening of your symptoms, or any development of chest pain, difficulty breathing, abdominal pain with persistent vomiting and inability to tolerate food or liquid by mouth (concern for dehydration),
weakness, headache or confusion, fever greater than 100.4, or any additional symptoms that are concerning to you.
Thank you for choosing [facility].
Interventions
Interventions:
*Risk Screen - Suicide Last Done: 05/22/25 10:11
*General Assessment Last Done: 05/22/25 10:11
*Neglect/Abuse Screening Last Done: 05/22/25 10:11
*ED- Fall Risk Assessment Last Done: 05/22/25 10:11
*ED COVID-19 Vaccine History Last Done: 05/22/25 13:06
ED- Cardiac Assessment Last Done: 05/22/25 10:11
ED- Pulmonary Assessment Last Done: 05/22/25 10:11
Discharge Date and Time
Print Language: GABONESE
[2025-05-22] MEDS: DUONEB 3 ML INH (11:10)
== END 2025-05-22 16:18 | disposition home or self-care (01) ==
LOC: EMR 10:08
PROVIDERS: EMERGENCY PHYSICIAN Student in an Organized Health Care Education/Training Program; FAMILY PHYSICIAN Emergency Medicine
DX: J45.901 Unspecified asthma with (acute) exacerbation (principal); I10 Essential (primary) hypertension; E78.00 Pure hypercholesterolemia, unspecified; G20.A1 Parkinson's disease without dyskinesia, without mention of fluctuations
CPT/HCPCS: 94640; 99285; 71046; 80048; 85025; 93005

== ENCOUNTER 2025-05-28 21:17 | Inpatient (IN) | payer OTHER, SELFPAY ==
[2025-05-28 16:32] VITALS: BP 143/104
[2025-05-28 18:22] LABS: Hematocrit 45.1 % (37.0-47.0); Hemoglobin 15.1 g/dL (12.0-16.0); Mean Corp Hgb Conc. 33.5 g/dL (33.0-37.0); Mean Corpuscular Volume 93.6 fL (81.0-99.0); Nucleated Red Blood Cells % 0 %; Platelet Count 273 10^3/uL (130-400); Red Cell Dist. Width 14.2 % (11.5-14.5)
[2025-05-28 18:37] LABS: ALT (SGPT) 11 U/L (0-35); AST (SGOT) 22 U/L (14-36); Albumin 3.7 g/dl (3.5-5.0); Alkaline Phosphatase 103 U/L (38-126); Blood Urea Nitrogen 25 mg/dl (7-17); Calcium 9.2 mg/dl (8.4-10.2); Carbon Dioxide 29 mmol/L (22-30); Chloride 107 mmol/L (98-107); Glucose 133 mg/dl (70-99); Potassium 3.8 mmol/L (3.5-5.1); Sodium 140 mmol/L (135-145); Total Protein 6.6 g/dl (6.3-8.2); eGFR > 60.00
[2025-05-28 19:53] VITALS: BMI 23.0
--- NOTE | 2025-05-28 20:02 | ED.GENMED ---
History of Present Illness
<Maria Fernanda Bryan NP - Last Filed: 05/28/25 23:09>
General
Chief Complaint: Swelling
Source: patient and family (son)
Exam Limitations: none
Time Seen by Provider: 05/28/25 17:14
Nursing documentation reviewed up to this point in time: agreed with
History of Present Illness
History of Present Illness:
Patient to ED wtih complaint of LLE swelling, worsening SOB. States she noticed the LLE swelling 2 days ago. No history of DVT. Denies any cp/pressure. Brought to ED by family for eval.
Past History
<Maria Fernanda Bryan NP - Last Filed: 05/28/25 23:09>
Past History
ED Past Medical History: Asthma, HTN, Hypercholesterolemia and Other (Parkinsons disease)
ED Past Surgical History: None
Social History
Tobacco: Non-smoker
Alcohol: None
Drug: None
Personal:
Living: with family
Review of Systems
<Maria Fernanda Bryan NP - Last Filed: 05/28/25 23:09>
Review of Systems
Allergies reviewed?: Yes
All Other Systems: ROS reviewed and negative except as documented in HPI and ROS
Constitutional: Reports no symptoms
EENT: Reports no symptoms
Respiratory: Reports trouble breathing
Cardiac: Reports no symptoms
ABD/GI: Reports no symptoms
: Reports no symptoms
Musculoskeletal: Reports other (LLE swelling)
Neurological: Reports no symptoms
Psychiatric: Reports no symptoms
Phy Exam
<Maria Fernanda Bryan NP - Last Filed: 05/28/25 23:09>
General Physical Exam
General Presentation: mild distress
General age: appears stated age
General Skin: warm and dry
General Habitus: normal
General Mental: alert
Cardiovascular Exam
Cardiovascular Exam: regular rate/rhythm
Pulmonary Exam
Pulmonary Exam: lungs clear and no respiratory distress
Neurological Exam
Neurological Exam: alert, oriented x3, CN II-XII intact, no motor deficits and no sensory deficits
Musculoskeletal Exam
Musculoskeletal Exam: full ROM and neuro vasc intact (Left DP by doppler)
Skin Exam
Skin Exam: warm/dry and other (LLE swelling - mid thigh to toes. )
Psychiatric Exam
Psychiatric Exam: normal mood/affect
Scores
<Maria Fernanda Bryan NP - Last Filed: 05/28/25 23:09>
Heart Failure Risk
Heart Failure Risk Score: Not Applicable
Course
<Maria Fernanda Bryan CREDIT AND COLLECTIONS REPRESENTATIVE - Last Filed: 05/28/25 23:09>
Orders/Labs/Results
Orders:
Orders
05/28/25 Dinner
NPO
Allow oral meds: Yes
Allow clear liquids: Sips of Clears
05/28/25 16:39
Legs, left US [US Periph Venous LOWER Ext LT] Urgent
Comment:
Reason For Exam: swelling and pain
05/28/25 17:37
Electrocardiogram (*1) Urgent
Reason for Study: Shortness of Breath
EKG- Treatment ONCE
05/28/25 18:02
Complete Blood Count/With Diff Urgent
Comprehensive Metabolic Panel Urgent
05/28/25 18:19
CT Chest PE Study Urgent
Comment:
Reason For Exam: SOB, +DVT
05/28/25 19:57
Heparin 4,700 units IV NOW STA
05/28/25 20:00
Heparin 66586 Units/250 ml 25,000 units in 250 ml IV PER PROTOCOL
Weight to be used for heparin protocol in kilograms (kg):: 58.9
Protocol:: DVT/PE
PTT Goal Range to be used:: PTT 73 to 111 seconds
Order type:: Initial
INITIAL Infusion Dose (UNITS/KG/hr) & then follow protocol:: 18 units/kg/hr
Infusion Dose in UNITS/hr & then follow protocol (UNITS/hr):: 1,100
INFUSION RATE in mL/hr & then follow protocol (mL/hr):: 11
For DVT/PE algorithm, re-bolus for low PTT?: Yes
PTT less than or equal to 64 seconds:: Re-bolus 80 units/kg (max 10,000units). Increase by 200 units/hr
(+ 2mL/hr)
PTT 64.1 to 72.9 seconds:: Re-bolus 40 units/kg (max 5,000 units). Increase by 100 units/hr
(+ 1mL/hr)
PTT 73 to 111 seconds:: Target Range. No change in rate.
PTT 111.1 to 130.9 seconds:: Decrease rate by 100 units/hr (- 1 mL/hr)
PTT 131 to 199.9 seconds:: HOLD for 1 hr. Then decrease by 200 units/hr (- 2mL/hr)
PTT greater than or equal to 200 seconds:: HOLD for 2 hrs & Notify Provider. Then decrease by 200 units/hr
(- 2mL/hr)
Lab follow-up:: Each change, PTT q6h until 2 consecutive are therapeutic. Then
PTT daily.
05/28/25 20:04
PTT Urgent
Comment: Obtain baseline before beginning heparin infusion if not already collected
05/28/25 20:13
Heparin 2,400 units IV PRN PRN
Heparin 4,700 units IV PRN PRN
05/28/25 20:34
Admit/Transfer Patient As Directed
Co-Sign Provider:
Level of Care: Inpatient admission
Assign to:: IMU- Intermediate Care
Physician / Group: Apurva
Diagnosis: DVT/PE
Reason for Hospitalization: heparin drip
Expected length of stay greater than two midnights?: Yes
ELOS- Estimated Length of Stay in days: 3
I certify the patient meets the requirements for IP care: Yes
PRN Pain Medication Management As Directed
May give lesser potent ordered pain med per pt: Yes
preference::
Protocol:: Medication orders for pain may be administered in a
manner that supports deferring to patient preference
when the pt is:
- Requesting an ordered lesser potent pain medication.
Least to most potent pain medications are defined
as: acetaminophen < NSAID < tramadol < opioids
(morphine, oxycodone, hydromorphone).
- Requesting a lesser dose of the same medication IF
ORDERED.
- Requesting a less intrusive route of administration
if both routes are prescribed by the provider (PO <
IV).
05/28/25 20:35
Code Status As Directed
Resuscitation Status: Do not resuscitate
Reached after discussion with pt or family/Healthcare POA: Yes
05/28/25 20:36
DNR Bracelet Application ONCE
05/28/25 20:45
CT Abd/pelvis W Iv Cont Urgent
Comment:
Reason For Exam: abd/pelvis venogram
05/28/25 22:31
Acetaminophen [Tylenol] 650 mg PO Q4HPRN PRN
Carbidopa/Levodopa [Sinemet 25-100] 2 tablet PO QID
05/28/25 22:31
PULMONARY CONSULT Routine
Consulting Provider: Edy Desai
Was physician already notified: Yes
Vascular Surgery Consult Routine
Consulting Provider: Don Gill III
Was physician already notified: Yes
Activity As Directed
Activity Level: Bedrest
Bladder Scan As Directed
Follow Bladder Retention/Intermittent Cath Algorithm?: Yes
Frequency: Per Retention Algorithm
Comment: as per intermittent urinary catheter algorithm
Intake/ Output As Directed
Frequency: Per unit guidelines
Neurological Checks As Directed
Frequency: Per unit guidelines
Additional Instructions:: every 15min x 2 hours, every 30min x 6 hours, every 1 hour x 16 hours
Notify MD As Directed
Notify physician if: PTT is greater than or equal to 200.
Straight Cath As Directed
Frequency: Per Retention Algorithm
Additional Instructions: straight cath as needed per acute urinary retention algorithm for 24 hrs
Additional Instructions: for bladder scan greater than 400 mL
Vascular Checks As Directed
Location: LLE Extremity
Frequency: q4h
Vital Signs As Directed
Frequency: Per unit guidelines
O2 Therapy [RESP] Routine
Titrate/Wean O2 to maintain O2 sat greater than (%): 90
Pulse Ox/cont/shift [RESP] Routine
Quantity: 1
Special Instructions: check O2 Sat Q8 hours and at each change in oxygen liter flow and FiO2
05/29/25 03:20
Complete Blood Count/No Diff IN AM
PTT Urgent
05/29/25 08:00
Fluticasone/Salmeterol 45/21 [Advair Hfa 45/21 Mcg Inhaler] 2 puff INH R BID
05/29/25 18:00
Propranolol Extended Release [Inderal LA] 60 mg PO QPM
Valsartan [Diovan] 160 mg PO QPM
05/30/25 02:26
Complete Blood Count/No Diff Q2D
Comment: notify provider: Platelet count < 130,000 or decrease by 50% from baseline
06/01/25 05:28
Complete Blood Count/No Diff Q2D
Comment: notify provider: Platelet count < 130,000 or decrease by 50% from baseline
Abnormal Lab Results
05/28/25
18:02
WBC 19.6 H 10^3/uL
(4.8-10.8)
MCH 31.3 H pg
(27.0-31.0)
MPV 11.3 H fL
(7.4-10.4)
Abs Immat Gran (auto) 0.3 H 10^3/uL
(0-0.05)
Absolute Neuts (auto) 15.8 H 10^3/uL
(1.4-6.5)
Absolute Monos (auto) 1.8 H 10^3/uL
(0.1-0.6)
Immature Gran % 1.3 H %
(0-0.5)
Neutrophils % 80.4 H %
(42.2-75.2)
Lymphocytes % 7.7 L %
(20.5-51.1)
BUN 25 H mg/dl
(7-17)
Glucose 133 H mg/dl
(70-99)
Total Bilirubin 2.0 H mg/dl
(0.2-1.3)
05/28/25 18:02
05/28/25 18:02
Vital Signs
Initial and Last Documented VS:
Initial Vital Signs
Temp Pulse Resp BP Pulse Ox
97.8 F 70 18 143/104 94
05/28/25 16:32 05/28/25 16:32 05/28/25 16:32 05/28/25 16:32 05/28/25 16:32
Last Documented Vital Signs
Temp Pulse Resp BP Pulse Ox
97.4 F 60 16 109/57 94
06/03/25 10:47 06/03/25 10:47 06/03/25 10:47 06/03/25 10:47 06/03/25 10:47
<Marsha Tipton, DO - Last Filed: 06/03/25 11:15>
Orders/Labs/Results
Orders:
Orders
05/28/25 Dinner
NPO
Allow oral meds: Yes
Allow clear liquids: Sips of Clears
05/28/25 16:39
Legs, left US [US Periph Venous LOWER Ext LT] Urgent
Comment:
Reason For Exam: swelling and pain
05/28/25 17:37
Electrocardiogram (*1) Urgent
Reason for Study: Shortness of Breath
EKG- Treatment ONCE
05/28/25 18:02
Complete Blood Count/With Diff Urgent
Comprehensive Metabolic Panel Urgent
05/28/25 18:19
CT Chest PE Study Urgent
Comment:
Reason For Exam: SOB, +DVT
05/28/25 19:57
Heparin 4,700 units IV NOW STA
05/28/25 20:00
Heparin 50158 Units/250 ml 25,000 units in 250 ml IV PER PROTOCOL
Weight to be used for heparin protocol in kilograms (kg):: 58.9
Protocol:: DVT/PE
PTT Goal Range to be used:: PTT 73 to 111 seconds
Order type:: Initial
INITIAL Infusion Dose (UNITS/KG/hr) & then follow protocol:: 18 units/kg/hr
Infusion Dose in UNITS/hr & then follow protocol (UNITS/hr):: 1,100
INFUSION RATE in mL/hr & then follow protocol (mL/hr):: 11
For DVT/PE algorithm, re-bolus for low PTT?: Yes
PTT less than or equal to 64 seconds:: Re-bolus 80 units/kg (max 10,000units). Increase by 200 units/hr
(+ 2mL/hr)
PTT 64.1 to 72.9 seconds:: Re-bolus 40 units/kg (max 5,000 units). Increase by 100 units/hr
(+ 1mL/hr)
PTT 73 to 111 seconds:: Target Range. No change in rate.
PTT 111.1 to 130.9 seconds:: Decrease rate by 100 units/hr (- 1 mL/hr)
PTT 131 to 199.9 seconds:: HOLD for 1 hr. Then decrease by 200 units/hr (- 2mL/hr)
PTT greater than or equal to 200 seconds:: HOLD for 2 hrs & Notify Provider. Then decrease by 200 units/hr
(- 2mL/hr)
Lab follow-up:: Each change, PTT q6h until 2 consecutive are therapeutic. Then
PTT daily.
05/28/25 20:04
PTT Urgent
Comment: Obtain baseline before beginning heparin infusion if not already collected
05/28/25 20:13
Heparin 2,400 units IV PRN PRN
Heparin 4,700 units IV PRN PRN
05/28/25 20:34
Admit/Transfer Patient As Directed
Co-Sign Provider:
Level of Care: Inpatient admission
Assign to:: IMU- Intermediate Care
Physician / Group: Apurva
Diagnosis: DVT/PE
Reason for Hospitalization: heparin drip
Expected length of stay greater than two midnights?: Yes
ELOS- Estimated Length of Stay in days: 3
I certify the patient meets the requirements for IP care: Yes
PRN Pain Medication Management As Directed
May give lesser potent ordered pain med per pt: Yes
preference::
Protocol:: Medication orders for pain may be administered in a
manner that supports deferring to patient preference
when the pt is:
- Requesting an ordered lesser potent pain medication.
Least to most potent pain medications are defined
as: acetaminophen < NSAID < tramadol < opioids
(morphine, oxycodone, hydromorphone).
- Requesting a lesser dose of the same medication IF
ORDERED.
- Requesting a less intrusive route of administration
if both routes are prescribed by the provider (PO <
IV).
05/28/25 20:35
Code Status As Directed
Resuscitation Status: Do not resuscitate
Reached after discussion with pt or family/Healthcare POA: Yes
05/28/25 20:36
DNR Bracelet Application ONCE
05/28/25 20:45
CT Abd/pelvis W Iv Cont Urgent
Comment:
Reason For Exam: abd/pelvis venogram
05/28/25 22:31
Acetaminophen [Tylenol] 650 mg PO Q4HPRN PRN
Carbidopa/Levodopa [Sinemet 25-100] 2 tablet PO QID
05/28/25 22:31
PULMONARY CONSULT Routine
Consulting Provider: Edy Desai
Was physician already notified: Yes
Vascular Surgery Consult Routine
Consulting Provider: Don Gill III
Was physician already notified: Yes
Activity As Directed
Activity Level: Bedrest
Bladder Scan As Directed
Follow Bladder Retention/Intermittent Cath Algorithm?: Yes
Frequency: Per Retention Algorithm
Comment: as per intermittent urinary catheter algorithm
Intake/ Output As Directed
Frequency: Per unit guidelines
Neurological Checks As Directed
Frequency: Per unit guidelines
Additional Instructions:: every 15min x 2 hours, every 30min x 6 hours, every 1 hour x 16 hours
Notify MD As Directed
Notify physician if: PTT is greater than or equal to 200.
Straight Cath As Directed
Frequency: Per Retention Algorithm
Additional Instructions: straight cath as needed per acute urinary retention algorithm for 24 hrs
Additional Instructions: for bladder scan greater than 400 mL
Vascular Checks As Directed
Location: LLE Extremity
Frequency: q4h
Vital Signs As Directed
Frequency: Per unit guidelines
O2 Therapy [RESP] Routine
Titrate/Wean O2 to maintain O2 sat greater than (%): 90
Pulse Ox/cont/shift [RESP] Routine
Quantity: 1
Special Instructions: check O2 Sat Q8 hours and at each change in oxygen liter flow and FiO2
05/29/25 03:20
Complete Blood Count/No Diff IN AM
PTT Urgent
05/29/25 08:00
Fluticasone/Salmeterol 45/21 [Advair Hfa 45/21 Mcg Inhaler] 2 puff INH R BID
05/29/25 18:00
Propranolol Extended Release [Inderal LA] 60 mg PO QPM
Valsartan [Diovan] 160 mg PO QPM
05/30/25 02:26
Complete Blood Count/No Diff Q2D
Comment: notify provider: Platelet count < 130,000 or decrease by 50% from baseline
06/01/25 05:28
Complete Blood Count/No Diff Q2D
Comment: notify provider: Platelet count < 130,000 or decrease by 50% from baseline
Abnormal Lab Results
05/28/25
18:02
WBC 19.6 H 10^3/uL
(4.8-10.8)
MCH 31.3 H pg
(27.0-31.0)
MPV 11.3 H fL
(7.4-10.4)
Abs Immat Gran (auto) 0.3 H 10^3/uL
(0-0.05)
Absolute Neuts (auto) 15.8 H 10^3/uL
(1.4-6.5)
Absolute Monos (auto) 1.8 H 10^3/uL
(0.1-0.6)
Immature Gran % 1.3 H %
(0-0.5)
Neutrophils % 80.4 H %
(42.2-75.2)
Lymphocytes % 7.7 L %
(20.5-51.1)
BUN 25 H mg/dl
(7-17)
Glucose 133 H mg/dl
(70-99)
Total Bilirubin 2.0 H mg/dl
(0.2-1.3)
05/28/25 18:02
05/28/25 18:02
Vital Signs
Initial and Last Documented VS:
Initial Vital Signs
Temp Pulse Resp BP Pulse Ox
97.8 F 70 18 143/104 94
05/28/25 16:32 05/28/25 16:32 05/28/25 16:32 05/28/25 16:32 05/28/25 16:32
Last Documented Vital Signs
Temp Pulse Resp BP Pulse Ox
97.4 F 60 16 109/57 94
06/03/25 10:47 06/03/25 10:47 06/03/25 10:47 06/03/25 10:47 06/03/25 10:47
<Maria Fernanda Bryan NP - Last Filed: 05/28/25 23:09>
*Pulse Oximetry
SaO2: 94
Oxygen Mode of Delivery: Room air
Patient hypoxic: no (Remains 87% RA)
*Critical Care Note
Total Time (30-74mins, 75-104mins- exclusive of procedures): Not Applicable
<Maria Fernanda Bryan NP - Last Filed: 05/28/25 23:09>
Update Note
Update Note:
Patient to ED with complaint of LLE swelling, worsening SOB. US LLE + large occlusive thrombus throughout the left commo femoral, femoral, popliteal, peroneasl and posterior tibial veins. Chest CT: bilateral PE present, moderate clot with right
heart strain. PERT initiated. Case discussed with Dr. Desai. WIll proceed with heparin infusion. VSS, pateint is comfortable. No thrombolytic procedure at this time. Dr. Gill consulted due to extensive DVT, discoloration of left toes.
Reqested CT venogram of abd/pelvis which was completed. Resultss: DVT throughout the left leg, left iliac veins and into the IVC below the levo of ther renal veins. Requests patient remain NPO, continue heparin infusion. He will consult with
patient in AM. Discussed findings and plan with patient and son, both are agreeable to plan. Patient is admitted to hospitalist service. She remains awake and alert, VSS, in no distress.
ED Attending Note
<Maria Fernanda Bryan NP - Last Filed: 05/28/25 23:09>
-
Portions of this chart may have been created with voice recognition software.� Occasional wrong word or��sound alike� substitutions may have occurred due to the inherent limitations of voice recognition software.
<Marsha Tipton DO - Last Filed: 06/03/25 11:15>
ED Attending Note
Patient seen and examined by attending physician: Yes
I performed the substantive portion of visit, reviewed & personally made and approve the management plan that is documented in note by myself or SANYA.: Yes
ED Attending Note:
I have reviewed and agree with Maria Fernanda Bryan NP's history and treatment plan. 89yoF presenting with worsening sob and LLE edema for the past few days. LLE edematous, blue/purple discoloration of left foot, foot warm, left DP pulse heard on
doppler. Workup concerning for extensive LLE DVT extending to IVC, bilateral PEs with right heart strain. Started heparin. Consulted vascular surgery, pulmonology, will remain NPO for possible intervention in morning. Admit to hospitalist
Discharge Plan
Departure
Patient Disposition: Admit
Date of Disposition: 05/28/25
Time of Disposition: 20:12
Presentation/result/management discussed w/ accepting MD/DO: Hospitalist
Patient with high blood pressure during this ER visit?: Yes
Condition: Fair
Covid-19: Not Applicable
Discharge Problem:
Pulmonary embolism, DVT (deep venous thrombosis)
Interventions
Interventions:
*Risk Screen - Suicide Last Done: 05/28/25 22:50
*General Assessment Last Done: 05/28/25 16:32
*Neglect/Abuse Screening Last Done: 05/28/25 16:32
*Nursing Disposition Last Done: 05/28/25 22:22
ED- Cardiac Assessment Last Done: 05/28/25 17:14
ED- Pulmonary Assessment Last Done: 05/28/25 17:14
ED-Skin Assessment Last Done: 05/28/25 17:14
Discharge Date and Time
Discharge Date/Time: 05/28/25 22:22
[2025-05-28] MEDS: HEPARIN 4700 UNITS IV (20:19)
--- NOTE | 2025-05-28 20:21 | HPS.HSE ---
Family Physician
-
Family Physician: Sue Howell MD
Chief Complaint
-
Shortness of Breath and LLE edema
History of Present Illness
Patient is an 89 y/o female past medical history of hypertension, asthma, essential tremor, Parkinson disease and chronic ambulatory dysfunction who presents with increasing shortness of breath and left lower extremity edema. Patient was seen here
at the [facility] emergency department on May 22 with shortness of breath. Patient had been using her inhaler and had also completed a coarse of prednisone without improvement in her symptoms. She had run out of her inhaler and thus was
treated as an asthma exacerbation, given new prescription for her inhaler and discharged home. Patent reports continued worsening of her breathing and is complaining about increasing lower extremity edema. Caregiver expresses concern that her left
lower leg has a few black spots and her toes are purple. Patient denies chest pain.
Medical History
Past Medical History
Past Medical History: Reports Other
Additional Past Medical History:
Essential Hypertension
Benign Essential Tremor / Parkinson's Disease
Asthma
Thoracic Compression Fracture
Sacral Insufficiency Fracture
Ambulatory Dysfunction
Past Surgical History: Reports None
Social History
Tobacco: Non-smoker
Alcohol: None
Drug: None
Living: Other (Independent Apartment with Aides)
Family History
Family History: Not pertinent
Allergies / Home Medications
Allergies reflects when Allergies were last updated in [employer].
Home Medications with original date entered in [employer]
Allergy/Medication List:
Allergies
Allergy/AdvReac Type Severity Reaction Status Date / Time
Cephalosporins Allergy Unknown Verified 05/28/25 16:32
clindamycin Allergy Unknown Verified 05/28/25 16:32
Penicillins Allergy Unknown Verified 05/28/25 16:32
Home Medications
carbidopa 25 mg-levodopa 100 mg tablet 2 tab PO QID tremor #0 tabs 11/26/24
fluticasone 100 mcg-salmeterol 50 mcg/dose blistr powdr for inhalation (Advair Diskus) 1 inh inhalation R BID wheezing #0 ea 11/26/24
propranolol 60 mg capsule,24 hr,extended release 60 mg PO QPM Blood pressure #0 caps 11/26/24
valsartan 160 mg tablet 160 mg PO QPM Blood pressure #0 tabs 11/26/24
albuterol sulfate 90 mcg/actuation breath activated powder inhaler (ProAir RespiClick) 2 inh inhalation R Q6HPRN PRN sob 05/28/25
Review of Systems
-
A 12 point ROS was completed and negative except as noted: Yes
Constitutional: Denies Fever
Respiratory: Reports Trouble Breathing; Denies Cough
Cardiac: Denies Chest Pain or Palpitations
Physical Exam
Vital Signs
Vital Signs
Temp Pulse Resp BP Pulse Ox
97.8 F 68 27 143/104 94
05/28/25 16:32 05/28/25 19:15 05/28/25 19:47 05/28/25 16:32 05/28/25 20:15
Physical Exam
General: Comfortable and Conversant
HEENT: Anicteric and Moist mucous membranes
Respiratory: Clear and Other (Slightly tachypneic )
Cardiac: S1/S2 and Regular Rhythm
GI: Soft and Non Tender
Rectal: Deferred by Provider
Musculoskeletal: No Clubbing, No Cyanosis and Other (Significant LLE edema; Left Toes are purple color and Left Foot is cool to touch)
Skin: Warm and Dry
Neuro: Awake, Alert, Oriented, Nonfocal/grossly intact and Tremors
Psych: Calm
Laboratory Results
-
05/28/25 18:02
05/28/25 18:02
Laboratory Results
Total Bilirubin 2.0 mg/dl (0.2-1.3) H 05/28/25 18:02
AST 22 U/L (14-36) 05/28/25 18:02
ALT 11 U/L (0-35) 05/28/25 18:02
Alkaline Phosphatase 103 U/L (38-126) 05/28/25 18:02
Peripheral Vascular Ultrasound:
Large amount of occlusive thrombus throughout the left common femoral, femoral, popliteal, peroneal, and posterior tibial veins.
Chest CT:
Positive for bilateral acute pulmonary thromboembolism. Moderate clot burden. Secondary findings suggesting right heart strain.
Mild opacity in the posterior basilar right lower lobe, atelectasis versus a small pulmonary infarct.
Data Reviewed
-
CT Scan: Report Reviewed by me
Ultrasound: Report Reviewed by me
Lab Data: Labs Reviewed by me
Impression/Plan
-
Sub-Massive Bilateral Pulmonary Embolism
-Consult Pulmonary
-PERT alert initially called in ED - No plans for thrombolysis for PE
-Continue heparin drip
Extensive LLE DVT
-Consult Vascular
-Check Abd/Pelvis Venogram
-Monitor Vascular Checks
-Keep NPO should patient require OR
Asthma, no acute exacerbation
-Continue Advair
Essential Tremor / Parkinson's Disease
-Continue propranolol and Sinemet
Essential Hypertension
-Continue valsartan
Code Status: DNR
[2025-05-28] MEDS: HEPARIN 25000 UNITS/250 ML IV (20:25)
[2025-05-28 20:26] LABS: APTT 28.4 Sec (23.4-35.0)
--- NOTE | 2025-05-28 20:42 | W.PN.UPDATE ---
Addendum entered and electronically signed by Behzad Mixon MD 05/28/25 20:47:
Vascular requesting CT venogram abdomen and pelvis.
Original Note:
Update Note
Progress Note Update
This is an addendum to H&P written by Brittny Stokes on 05/28/2025. �Patient seen and examined independently with PA.
89-year-old female past medical history of asthma, Parkinson disease wheelchair-bound, hypertension, essential tremor, hyperlipidemia, squamous cell carcinoma presenting with left lower extremity swelling and worsening shortness of breath. �No chest
pain.
Was here in the ER on 05/22 for shortness of breath treated as asthma exacerbation.
EKG shows sinus rhythm with PACs.
Labs show leukocytosis.
Venous ultrasound shows extensive left lower extremity DVT. �CT chest shows bilateral acute pulmonary thromboembolism, moderate clot burden. �Right heart strain. �Mild opacity in the posterior basilar right lower lobe atelectasis versus small
pulmonary infarct.
Patient with pulmonary embolism/left lower extremity DVT provoked from wheelchair bound status. �Hemodynamically stable. �Heparin drip. �Echocardiogram. �Vascular consulted for potential thrombolysis due to significant swelling of the left lower
extremity with purple toes. Pulmonary consulted.� NPO past midnight in case thrombolysis considered.
[2025-05-28 22:38] VITALS: BP 147/84
[2025-05-28] MEDS: SINEMET 25-100 2 TABLET PO (23:02)
[2025-05-29] VITALS (21 sets, daily range): BP systolic 91–155; BP diastolic 42–113
[2025-05-29 03:49] LABS: APTT 122.7 Sec (23.4-35.0)
[2025-05-29 04:51] LABS: Hematocrit 42.2 % (37.0-47.0); Hemoglobin 14.8 g/dL (12.0-16.0); Mean Corp Hgb Conc. 35.1 g/dL (33.0-37.0); Mean Corpuscular Volume 90.8 fL (81.0-99.0); Platelet Count 267 10^3/uL (130-400); Red Cell Dist. Width 14.4 % (11.5-14.5)
[2025-05-29] MEDS: ADVAIR HFA 45/21 MCG INHALER 2 PUFF INH ×2 (07:24→21:10)
--- NOTE | 2025-05-29 07:31 | PTCARENOTE ---
Pt AAOx3, denies complaints at this time. Throughout shift, coloring and sensation in LLE improved from cyanotic to pale/pink, doppler pulse present. 2L O2 placed for desat to 89% on RA while sleeping. Pt c/o mild SOB, which she relates to her
positioning in the bed, repositioning provided, however orthopnea remains present. Neurological and neurovascular checks maintained per orders. Call braxton within reach.
--- NOTE | 2025-05-29 08:25 | CON.VAS ---
Addendum entered and electronically signed by Don Burkett III, MD 05/29/25 11:32:
This patient was seen and examined in collaboration with GOGO Quintero. I agree with the history and physical exam as well as the assessment and plan. I have the following additions:
89-year-old female with significant left lower extremity and iliofemoral DVT, with extension into the inferior vena cava
Pulmonary emboli
Currently comfortable and in no respiratory distress on nasal cannula oxygen
I personally reviewed the CT angiogram of the chest as well as the CT venogram of the abdomen and pelvis. I also personally reviewed the venous duplex images
Reports for all imaging were reviewed
On physical exam she has significant diffuse left lower extremity edema with blue discoloration throughout
Doppler signals are intact in the left foot
I had a long conversation with the patient and her son at the bedside
I explained the imaging findings. Given the severity of the thrombus burden my recommendation is to proceed with venography and endovascular intervention with initiation of venous thrombolysis. The technical aspects of this procedure were
discussed with them in detail. The benefits and rationale for this approach were discussed with them in detail. Operative risks were discussed with him in detail including but not limited to pulmonary embolism, bleeding, , intracranial
hemorrhage, stroke and inability to successfully complete endovascular intervention. I was also clear with them that this will require trip back to the operating room for repeat evaluation and additional intervention.
The alternative of no surgical intervention and continued anticoagulation was discussed with them as well but I expressed my concerns with this approach given the extent of the DVT.
Both the patient and her son expressed a clear understanding of our conversation and agreed to proceed with intervention as detailed above.
Signed:
Don Burkett III, MD
Vascular Surgery
[facility]
Original Note:
Consultation
Consultation Request
Date/Time Consultation Performed: 05/29/25 7am
Performing Provider: Kwadwo
Reason for Consultation: DVT
Medical History
-
Chief Complaint: SOB/LLE swelling
History of Present Illness:
89-year-old female with past medical history significant for hypertension, asthma, essential tremor, Parkinson's, ambulatory dysfunction presenting to the emergency room overnight for increasing shortness of breath and left lower extremity edema.
Patient was seen in our emergency room on 05/22/2025 for shortness of breath and was discharged with course of prednisone. Since then patient states she has had continued shortness of breath with increasing swelling to her left lower extremity. She
denies history of DVT/clotting. Denies any recent GI bleed, CVA, blood in her urine. Denies recent surgical procedures and does not take blood thinners.
Patient seen at bedside this morning with Dr. Burkett. Son at bedside.
Left lower extremity +3 pitting edema,+ phlegmasia, blistering around the ankle, left foot with purpleish discoloration. Foot is warm with present Doppler signal.
CT chest: Positive for bilateral acute pulmonary thromboembolism. Moderate clot burden. Secondary findings suggesting right heart strain.
CT venogram: Deep venous thrombosis of the left lower extremity, left iliac veins, and the IVC to just below the level of the renal veins
Past Medical History
Past Medical History: Other (See above)
Social History
Tobacco: Non-Smoker
Alcohol: None
Drug: None
Personal:
Living: Other (Has live-in aide)
Family History
Family History: Reviewed & Not Pertinent
Allergies / Home Medications
Allergy/AdvReac Type Severity Reaction Status Date / Time
Cephalosporins Allergy Unknown Verified 05/28/25 16:32
clindamycin Allergy Unknown Verified 05/28/25 16:32
Penicillins Allergy Unknown Verified 05/28/25 16:32
�Medication �Instructions �Recorded �Confirmed �Type
carbidopa 25 mg-levodopa 100 mg 2 tab PO QID tremor #0 tabs 11/26/24 05/28/25 Rx
tablet
fluticasone 100 mcg-salmeterol 50 1 inh inhalation R BID wheezing #0 11/26/24 05/28/25 Rx
mcg/dose blistr powdr for ea
inhalation (Advair Diskus)
propranolol 60 mg capsule,24 60 mg PO QPM Blood pressure #0 caps 11/26/24 05/28/25 Rx
hr,extended release
valsartan 160 mg tablet 160 mg PO QPM Blood pressure #0 11/26/24 05/28/25 Rx
tabs
albuterol sulfate 90 mcg/actuation 2 inh inhalation R Q6HPRN PRN sob 05/28/25 05/28/25 History
breath activated powder inhaler
(ProAir RespiClick)
Review of Systems
-
History Source: Patient and Family
All other systems: Negative unless noted
Constitutional: Reports No Symptoms
EENT: Reports No Symptoms
Respiratory: Reports Trouble Breathing
Cardiac: Reports No Symptoms
Vascular: Denies Leg Pain / Claudication
Abdomen/GI: Reports No Symptoms
: Reports No Symptoms
Musculoskeletal: Reports Edema
Skin: Reports Other (Discoloration to the left leg)
Neurological: Reports No Symptoms
Physical Exam
Vital Signs
Temp Pulse Resp BP Pulse Ox
97.7 F 80 20 135/61 95
05/29/25 04:00 05/29/25 07:28 05/29/25 07:28 05/29/25 06:00 05/29/25 07:28
Lab Results
05/29/25 03:20
05/28/25 18:02
Physical Exam
General: No Apparent Distress
HEENT: Normocephalic and Atraumatic
Respiratory: Non Labored Respirations
Cardiac: Negative JVD
GI: Soft, Non Tender and Non Distended
Musculoskeletal: No Clubbing and Edema (+3 left lower extremity)
Skin: Warm and Other (Purple discoloration to the left foot)
Neuro: Awake, Alert and Oriented
Psych: Calm
Assessment / Plan
-
89-year-old female presenting to the emergency room overnight for shortness of breath and left lower extremity swelling
Extensive left lower extremity DVT and bilateral PE
Plan:
N.p.o.
Continue heparin drip
Plan for OR later this morning for lysis
Recommend echo during this admission
Patient will transfer to ICU after OR and plans to return to OR tomorrow morning for lysis check
Data Reviewed
-
CT Scan: Discussed with Patient
Labs: Labs Reviewed by me
[2025-05-29] MEDS: SINEMET 25-100 2 TABLET PO ×4 (09:02→20:53)
--- NOTE | 2025-05-29 09:16 | PTCARENOTE ---
Patients necklace, ring and earrings sent home with Yang, patients son, preoperatively.
[2025-05-29 09:48] LABS: Glucose - Point of Care 122 mg/dl (70-99)
--- NOTE | 2025-05-29 09:48 | RR ---
A Rapid Response was called on this patient, please see Rapid Response form.
--- NOTE | 2025-05-29 09:48 | PTCARENOTE ---
Addendum entered by Agatha Peña RN 05/29/25 10:21:
Report given to Rafiq CARRENO at bedside for transfer to ICU. Belongings brought into room.
Original Note:
Patients right pupil 3 and left is a 2, slight right sided facial droop. Patient 'Favoring right side' as per son. Notified Dr. Schmid, stroke alert called. Son and patient educated about plan of care.
--- NOTE | 2025-05-29 09:54 | W.PN.HOSP.TC ---
Today's Communication/Plan
-
Vascular procedure
heparin gtt
Assessment / Plan
Assessment / Plan
89 y/o female with LLe edema. Nursing noted a mild right facial droop at 9:25 AM. Patient was seen immediately. Patient's son was not sure if there was a facial droop but since patient is on heparin drip stroke alert was called and patient was
sent to CT.
Patient was seen in the ER on 05/22/2025 for shortness of breath and was discharged on a course of prednisone. Since then she continued to have shortness of breath. Son came back from vacation and noted that she also has left lower extremity edema .
On examination patient awake alert oriented x 3
Mildly short of breath
Cardiovascular system S1-S2 appreciated
Chest clear to auscultation decreased breath sounds
Abdomen soft and nontender
Neuroexam pupils are equal and reactive
Facial droop on the right side is questionable
No pronator drift
Right hand essential tremor
Reflexes brisk uniformly
Left lower extremity edema with multiple blisters, cold, skin tear noted, mild difficulty with flexion of the left foot, decreased reflexes left foot
Head CT-no acute changes
CT abdomen and pelvis-DVT in the left lower extremity, iliac veins, And to the IVC to just below the level of the renal veins
CT chest-positive for bilateral acute PE. Moderate clot burden secondary findings suggesting right heart strain. Mild opacity in the posterior basilar right lower lobe atelectasis versus small pulmonary infarct
EKG-normal sinus rhythm. Possible left atrial enlargement. T wave abnormality consider anterolateral ischemia
# Questionable right facial droop
Head CT negative for bleed
Does not look like CVA but defer to neurology
# Submassive bilateral PE
PERT alert was called-no plans for thrombolysis for PE
Heparin drip continued
Check echo
# Extensive left lower extremity DVT
Vascular planning for lysis procedure
Continue heparin drip
Wound care consultation for blisters in skin tear
# Asthma-NOS. Continue Advair or equivalent and nebulizer treatments.
# Essential hypertension-continue valsartan, propranolol
# Parkinson disease-continue Sinemet
# Essential tremor-continue propranolol
# Diverticulosis
# Chronic back pain-moderate compression fractures T7 and T9, mild compression fracture of T8 ,severe compression fracture L1, moderate compression fracture L3, degenerative anterolisthesis L4 on L 5
# Ambulatory dysfunction
# DNR
Discussed with stroke team at bedside and neurology
Discussed with son at bedside
Time spent over 50-minutes
Anticipated Discharge: > 48 hours
Subjective/Interval History
-
Date of Service: May 29, 2025
Objective Data
-
Labs:
Laboratory Results
05/29/25 05/29/25
03:20 09:39
WBC 16.4 H
Hgb 14.8
Hct 42.2
Plt Count 267
APTT 122.7 H Pending
Vital Signs:
Vital Signs
Temp Pulse Resp BP Pulse Ox
97.6 F 95 32 154/83 97
05/29/25 07:05 05/29/25 09:00 05/29/25 09:00 05/29/25 08:53 05/29/25 09:00
I&O
05/28/25 05/29/25 05/30/25
06:59 06:59 06:59
Output Total 150 / 150
Balance -150 / -150
[2025-05-29 10:15] LABS: APTT 67.8 Sec (23.4-35.0)
--- NOTE | 2025-05-29 10:41 | CON.INTV ---
Consultation
Consultation Request
Date/Time Consultation Requested: 05/29/2025-10 AM
Date/Time Consultation Performed: 05/29/2025-10:30 AM
Requesting Provider: hospitalist/vascular surgery
Performing Provider: Dr. Desai
Reason for Consultation: postoperative critical care management
Medical History
-
Chief Complaint: PAD
History of Present Illness:
89-year-old lifelong non-smoking female with a history of hypertension, essential tremors, Parkinson's, asthma and ambulatory dysfunction presented with shortness of breath Found to have pulmonary emboli and left lower extremity edema evaluated by
vascular surgery requiring reperfusion of left lower extremity who developed some neurologic symptoms preoperatively and went to CT head which was negative transferred to ICU prior to vascular intervention-motor and generator brush cutter consulted for neurologic
changes/PAD/eventual postoperative critical care management 05/29/2025. The patient's neurologic status has improved. She denies any dysarthria, weakness, numbness, and offers no complaints of shortness of breath at rest, chest pain, chest
tightness, productive cough, abdominal pain, nausea,
Past Medical History
Past Medical History: None ( Hypertension. Essential tremor. Parkinson's. Asthma. Thoracic compression fracture. Ambulatory dysfunction. PAD.)
Social History
Tobacco: Non-smoker
Alcohol: None
Drug: None
Living: With Family
Occupational Exposures: no known asbestos exposure
Environmental Exposures: no known tuberculosis exposure
Family History
Family History: Reviewed & Not Pertinent
Allergies / Home Medications
Allergies
Allergy/AdvReac Type Severity Reaction Status Date / Time
Cephalosporins Allergy Unknown Verified 05/28/25 16:32
clindamycin Allergy Unknown Verified 05/28/25 16:32
Penicillins Allergy Unknown Verified 05/28/25 16:32
Home Medications
�Medication �Instructions �Recorded �Confirmed �Last Taken �Type
carbidopa 25 mg-levodopa 100 mg 2 tab PO QID tremor #0 tabs 11/26/24 05/28/25 05/28/25 Rx
tablet
fluticasone 100 mcg-salmeterol 50 1 inh inhalation R BID wheezing #0 11/26/24 05/28/25 Unknown Rx
mcg/dose blistr powdr for ea
inhalation (Advair Diskus)
propranolol 60 mg capsule,24 60 mg PO QPM Blood pressure #0 caps 11/26/24 05/28/25 Unknown Rx
hr,extended release
valsartan 160 mg tablet 160 mg PO QPM Blood pressure #0 11/26/24 05/28/25 Unknown Rx
tabs
albuterol sulfate 90 mcg/actuation 2 inh inhalation R Q6HPRN PRN sob 05/28/25 05/28/25 Unknown History
breath activated powder inhaler
(ProAir RespiClick)
Review of Systems
-
Unable to Obtain full review of systems at this time due to: Other ( per HPI)
Vitals / Labs / Diagnostic Testing
Vital Signs
Temp Pulse Resp BP Pulse Ox
98.3 F 82 37 154/83 96
05/29/25 10:21 05/29/25 10:01 05/29/25 10:01 05/29/25 08:53 05/29/25 10:01
Lab Data
05/29/25 03:20
Laboratory Results
05/28/25 05/29/25 05/29/25
20:04 03:20 09:39
APTT 28.4 122.7 H 67.8 H
Diagnostic Testing:
Physical Exam
-
Exam:
well-nourished and well-developed in no apparent distress
HEENT-atraumatic, normocephalic
Neck-supple, no JVD, no bruit
Heart-regular rate and rhythm-no murmurs, rubs or gallops
Chest-clear to auscultation, no wheezes, crackles
Back-no tenderness
Abdomen-soft, nontender, nondistended, no hepatosplenomegaly
Left lower extremity edematous, erythematous, decreased pulses
Integument-intact, no rashes, lesions or ecchymosis
Neurology-alert and oriented, nonfocal motor and sensory exam
Assessment
-
89-year-old lifelong non-smoking female with a history of hypertension, essential tremors, Parkinson's, asthma and ambulatory dysfunction presented with shortness of breath found to have pulmonary emboli/extensive DVT and left lower extremity edema
evaluated by vascular surgery requiring lysis of left lower extremity extensive DVT who developed some neurologic symptoms preoperatively and went to CT head which was negative transferred to ICU prior to vascular intervention-motor and generator brush cutter consulted
for neurologic changes/PAD/eventual postoperative critical care management 05/29/2025.
Bilateral probable provoked moderate burden submassive pulmonary emboli with right ventricular strain
PESI--88, high risk, class III
DVT left lower extremity-extensive for lysis
vascular lysis therapy 05/29/2025-pending
Leukocytosis
Mild hyperglycemia
Isolated elevation total bilirubin-2.0
DNR
Conditions present prior to admission:
Hypertension.
Essential tremor.
Parkinson's.
Asthma.
Diverticulosis
Chronic back pain
Thoracic compression fracture-T7 and T9 with mild compression fracture T8, severe compression fracture L1, moderate compression fracture L3
Ambulatory dysfunction.
Plan
Patient will be transferred to medical/surgical intensive care unit for close observation in the perioperative period
Supplemental oxygen as needed
Aspiration precautions
Incentive spirometry
CT chest personally reviewed--moderate clot burden with evidence for right ventricular strain
Check echocardiogram
Lower extremity ultrasound and CT abdomen with extensive left-sided DVT/clot burden
May need eventual hypercoagulable workup
Vascular surgery following-correspondence reviewed
Lysis of extensive left lower extremity DVT plan for 05/29/2025
Full PESI summarized above
Heparin drip continues with eventual conversion to oral anticoagulant-probably lifelong unless there is contraindications with her high risk recurrence/ambulatory dysfunction/extensive left lower extremity DVT with probable vein valve damage
Benefits and risks of thrombolytics therapy were reviewed and risks outweigh the benefits
Bedrest �24 hours
DVT prophylaxis-on full anticoagulation
Early nutrition
Early mobilization
Outpatient pulmonary follow-up
Critical care statement: A total of 65 minutes of critical care time was provided for this patient today. This includes management of unstable vital signs, evaluation for thrombolytic therapy, management of large pulmonary embolism, evaluation of
the patient at bedside, reviewing the patient's pertinent medical records including radiographs, microbiology, laboratory evaluations, and discussion with primary team, consultants, pharmacy, and critical care nursing.
Diagnostic data:
Chest x-ray 05/22/2025-small horizontal band of increased density right lower lobe compatible with discoid atelectasis
CT chest 05/28/2025-bilateral acute pulmonary thromboembolism with moderate clot burden with findings of right heart strain, nodular enlargement of the right thyroid, small calcified granuloma right lung apex, chronic compression fractures
CT abdomen and pelvis 05/28/2025-deep venous thrombosis left lower extremity, left iliac veins in the IVC to just below the level of the renal veins
CT head 05/29/2025-no acute intracranial abnormalities
Lower extremity ultrasound 05/28/2025-extensive left lower extremity occlusive DVT throughout left common femoral, femoral, popliteal, peroneal and posterior tibial veins
Echocardiogram 11/25/2024-EF 60-65%, no significant valvular disease
Data Reviewed
-
EKG: Report reviewed by me
Radiology: Image personally visualized and interpreted and Report reviewed by me
CT Scan: Image personally visualized and interpreted and Report reviewed by me
Medical Tests (Nuc Med, Echo etc): Report reviewed by me
Labs: Labs reviewed by me
Old Records: Reviewed
Critical Care Time (in minutes): 65
--- NOTE | 2025-05-29 10:43 | PTCARENOTE ---
recd pt at [facility] at 0930, Dr. Schmid and team present, neuro exam as noted, to CT and now presently in ICU, family bedside. 12 lead obtained, PTT results noted, heparin increased. L leg purple dusky good doppler signals, blister intact L mast area.
Pleasant though not thrilled at situation, notes doesn't feel quite herself but close. Vascular team bedside, proceeding with OR plans. CHG bath, skin care, turned to L side. Sacrum pink.
--- NOTE | 2025-05-29 10:58 | W.PN.UPDATE ---
Update Note
Progress Note Update
Pt seen at bedside with son present. Pt was taken to CT for stroke alert, CT negative for bleed. Pt neuro intact, follows commands, I cannot really appreciate a facial droop. Pt's son states she appears at her baseline. Pt agrees she does not feel
different then this morning when we spoke at bedside with Dr Burkett.
I spoke with Neuro who recommends proceeding with LLE lysis today. Pt and family also in agreement to proceed.
[2025-05-29] MEDS: LIDOCAINE 4% PATCH TOPICAL (11:00)
--- NOTE | 2025-05-29 11:11 | PTCARENOTE ---
report to OR, Dr. Man here, transported via bed to OR on oxygen, monitor, heparin. Discussed with vascular team, increased heparin as ordered with no bolus at this time.
--- NOTE | 2025-05-29 11:32 | W.SUR.PREOP ---
Pre-Operative Surgical Note
-
I have examined this patient prior to the performance of the scheduled procedure.
The patient's condition is unchanged from the time of the current History and
Physical and the patient is able to undergo the scheduled procedure.
[2025-05-29 11:35] LABS: Troponin I 0.014 ng/ml
[2025-05-29 11:45] LABS: Blood Urea Nitrogen 20 mg/dl (7-17); Calcium 9.1 mg/dl (8.4-10.2); Carbon Dioxide 29 mmol/L (22-30); Chloride 107 mmol/L (98-107); Estimated Creatinine Clearance 45 ml/min; Glucose 127 mg/dl (70-99); Magnesium 1.9 mg/dl (1.6-2.3); Potassium 3.8 mmol/L (3.5-5.1); Sodium 141 mmol/L (135-145); eGFR > 60.00
--- NOTE | 2025-05-29 12:07 | CM ---
Initial assessment completed with patient and son. Patient lives alone in a 4th floor apartment in an elevator building. She has 24/7 caregivers with [facility]. She use a RW or wheelchair for ambulation and requires assistance
with ADL's. No current in-home services. Has used HH in the past and would like to have them at discharge. PCP is Dr. Sue Howell and Pharmacy is [facility] in [place]. Discharge POC: TBD. Will place HH referral.
[2025-05-29] MEDS: CATHFLO/ACTIVASE 16 MG INF CATH ×3 (13:34→20:36)
[2025-05-29] MEDS: CATHFLO/ACTIVASE 16 ML INF CATH ×3 (13:34→20:36)
--- NOTE | 2025-05-29 13:34 | OR.RPT ---
Operative Report
Operative Report
Date of Operation: 05/29/2025
Pre Op Diagnosis:
1. Extensive left lower extremity DVT, common femoral vein, femoral vein, popliteal vein
2. Left iliac vein DVT with extension into inferior vena cava
3. Phlegmasia cerulea dolens, left lower extremity
Post Op Diagnosis:
1. Extensive left lower extremity DVT, common femoral vein, femoral vein, popliteal vein
2. Left iliac vein DVT with extension into inferior vena cava
3. Phlegmasia cerulea dolens, left lower extremity
Procedure:
1.) Venogram, left lower extremity
2.) Venogram, left iliac veins
3.) Venogram, inferior vena cava
4.) Placement of 50 cm Cragg Sonny infusion catheter with initiation of pharmacologic venous thrombolysis, left lower extremity
5.) Ultrasound-guided percutaneous access to the left popliteal vein
Surgeon: Don Burkett III, MD
Business Instructor: Raheem Ramírez MD PGY-6
Anesthesia: Sedation with local
Complications: None
Estimated Blood Loss: Less than 20 cc
History and Indications for Procedure: 89-year-old female with phlegmasia cerulea dolens of the left lower extremity. Cross-sectional imaging demonstrated thrombus in the inferior vena cava and throughout the left iliac veins. Venous duplex
demonstrated occlusive thrombus involving the common femoral vein, femoral vein and popliteal vein. She was taken to the operating room for endovascular intervention.
Procedure in Detail: Kerry Estevez was correctly identified and was positioned prone on the operating table. After adequate induction of anesthesia the left popliteal fossa was prepped and draped in usual sterile fashion. She received preoperative
antibiotics. A timeout was performed with the nursing and anesthesia staff confirming the patient's identity as well as the nature and laterality of the procedure.
Using ultrasound guidance we identified the left popliteal vein in the popliteal fossa. The vein was distended and noncompressible. Local anesthesia was infiltrated into the proposed puncture site. We then accessed the left popliteal vein under
direct ultrasound guidance with a micropuncture needle. We then upsized to a 6 Angolan sheath over a Bentson wire. Left lower extremity venogram was performed demonstrating thrombus throughout the popliteal vein, femoral vein and common femoral
vein. Using a Glidewire and Ringoes catheter we navigated through the popliteal vein, femoral vein and common femoral vein. We are able to advance the wire and catheter through the left iliac veins and into the IVC. Venography of the iliac veins and
IVC demonstrated thrombus throughout the left iliac venous system. The vena cava was patent.
A Storq wire was placed into the inferior vena cava. A 50 cm Cragg Sonny infusion catheter was then advanced over the Storq wire and positioned in the desired location. 10 mg of tPA was injected into the Cragg Sonny catheter as a bolus. 2 mg
of tPA was injected through the side port of the 6 Fr sheath as a bolus. After 10 minutes a venogram was performed through the Cragg Sonny infusion cathter which again demonstrated thrombus throughout the iliac veins but the lysis catheter was in
the desired location.
The lysis catheter was secured in place with steri-strips at the sheath exit site. The sheath was secured in place at the skin with a Nylon suture. The sheath and catheter were also secured in place with adhesive dressings. The tPA infusion was
initiated through the lysis catheter at 1 mg/hr. Heparin drip was initiated through the side port of the sheath at 500 units/hr.
The patient was flipped back to a supine position on the stretcher. The patients leg was wrapped with an Silas from the toes to the proximal thigh.
The patient tolerated the procedure well and was taken to the recovery area in stable condition.
Attestation: I was present and responsible for the entire procedure.
Signed:
Don Burkett III, MD
Vascular Surgery
[facility]
[2025-05-29] MEDS: HEPARIN 25000 UNITS/250 ML VEN SHEATH (13:35)
--- NOTE | 2025-05-29 13:44 | W.SUR.POST ---
Surgical Immediate Post Op
Note
Pre Op Diagnosis: Deep Venous Thrombosis
Post Op Diagnosis: Deep Venous Thrombosis
Procedure Performed: Left popliteal vein lysis catheter placement
Primary Surgeon: Don Burkett III, MD
Secondary Surgeons: Raheem Ramírez MD
Anesthesia: see anesthesia report
Estimated Blood Loss: minimal
Fluids: see anteshesia report
Drains/Shunts: 5Fr lysis catheter placement
Specimens/Cultures: No
Doppler/Duplex/Angio (Y/N): Y
Complications: None
Operative Findings: Extensive left lower extremity clot burden extending from popliteal vein into femoral, iliac and vena cava. Lysis catheter placed for thrombolytic infusion.
--- NOTE | 2025-05-29 13:53 | PTCARENOTE ---
back from OR, bedside report, handoff of meds and vascular checks, see documentation. pt alert, conversive, tremulous. LLE heena wrap maintained, elevated on air pillow, lytics infusing.
[2025-05-29] MEDS: VANCOCIN 200 IV ×2 (14:07→23:49)
[2025-05-29] MEDS: NSS INF CATH (14:08)
[2025-05-29] MEDS: NSS 1000 IV ×2 (14:09→22:26)
--- NOTE | 2025-05-29 14:24 | PTCARENOTE ---
continues PACU time, labs sent, vascular checks remain. air pillow under LLE (under sheet). More comfortable than earlier. Denies significant pain or need for ice chips/water at this time.
[2025-05-29 14:28] LABS: Hematocrit 45.4 % (37.0-47.0); Hemoglobin 14.9 g/dL (12.0-16.0); Platelet Count 260 10^3/uL (130-400)
[2025-05-29 14:45] LABS: Fibrinogen 546 MG/DL (199-459); INR 1.26; PT 16.3 Sec (11.4-14.6)
--- NOTE | 2025-05-29 14:59 | PTCARENOTE ---
son bedside, neurovascular checks unchanged. c/o some wheezing, audible faintly on chest, Dr. Schmid notified for prn neb order (per home med list) and resp notified.
[2025-05-29 15:24] LABS: Blood Urea Nitrogen 20 mg/dl (7-17); Calcium 8.5 mg/dl (8.4-10.2); Carbon Dioxide 28 mmol/L (22-30); Chloride 106 mmol/L (98-107); Estimated Creatinine Clearance 45 ml/min; Glucose 141 mg/dl (70-99); Potassium 4.0 mmol/L (3.5-5.1); Sodium 139 mmol/L (135-145); eGFR > 60.00
--- NOTE | 2025-05-29 16:03 | WOUNDNOTE ---
WO RN NOTE: Wound consult received for left leg wound. Patient s/p lysis procedure and left leg is wrapped with JULIEN. TT with LILY Nazario from Vascular who said patient had skin tear on her left wrist, which she dressed with a Xeroform dressing. TT
with Dr. Schmid and plan is to cancel wound consult at this time and consult again as needed. EV Ramirez made aware of plan.
[2025-05-29] MEDS: NSS 500 IV (16:42)
--- NOTE | 2025-05-29 17:23 | CON.NEURO ---
Neuro Assessment/Plan
Assessment
right facial droop
head CT imgs rev'd, no bleed
with her clinical condition I don't believe pursuing stroke work up will be of any benefit.
recommend continuing heparin gtt for DVT and proceeding with lysis procedure today as planned.
Consultation
Order
Date of Consultation: 05/29/25
Requesting Provider: Leroy Schmid
Reason for Consult: stroke alert
Subjective/Objective
Subjective Data
Date of Service: May 29, 2025
seen this morning during stroke alert, late note
She is an 89 year old woman admitted for submassive bilateral acute PE and DVT. she is on heparin gtt, developed right facial droop for which stroke alert was called
Objective Data
Vital Signs
Temp Pulse Resp BP Pulse Ox
37.8 C 93 32 149/74 100
05/29/25 15:39 05/29/25 15:25 05/29/25 15:25 05/29/25 15:25 05/29/25 15:25
Lab Results
05/29/25 14:20
PT 16.3 Sec (11.4-14.6) H 05/29/25 14:20
INR 1.26 05/29/25 14:20
APTT Cancelled 05/29/25 16:30
Sodium 139 mmol/L (135-145) 05/29/25 14:20
Potassium 4.0 mmol/L (3.5-5.1) 05/29/25 14:20
BUN 20 mg/dl (7-17) H 05/29/25 14:20
Glucose 141 mg/dl (70-99) H 05/29/25 14:20
Calcium 8.5 mg/dl (8.4-10.2) 05/29/25 14:20
Rpl-U-Ggjcwwkvgaw Pept 3520 pg/ml 05/29/25 10:56
Patient Allergies
Cephalosporins Allergy (Verified 05/28/25 16:32)
Unknown
clindamycin Allergy (Verified 05/28/25 16:32)
Unknown
Penicillins Allergy (Verified 05/28/25 16:32)
Unknown
CVA Assessment
Onset of Stroke Symptoms
Time pt last seen normal is known: Yes
Date last time pt seen normal: 05/29/25
Time last time pt seen normal: :25
Tenecteplase Contraindications
Reasons for NON-Tx with Thrombolytics ABSOLUTE Exclusions: PTT >40
Physical Exam
-
right nasolabial flattening
Medications
-
Active Medications
Generic Name Dose Route Start Last Admin
Trade Name Freq PRN Reason Stop Dose Admin
Acetaminophen 650 mg 05/28/25 22:31
Acetaminophen 325 Mg Tablet PO 06/25/25 22:30
Q4HPRN PRN
mild pain/temp > 100.4 F
Bisacodyl 10 mg 05/29/25 12:05
Bisacodyl 10 Mg Rectal Suppository RECTAL 06/26/25 12:04
DAILYPRN PRN
constipation
Carbidopa/Levodopa 2 tablet 05/28/25 22:31 05/29/25 14:44
Carbidopa (25 Mg)/Levodopa (100 Mg) Regular Release Tablet PO 06/25/25 22:30 2 tablet
QID ERIC Administration
Sodium Chloride 1,000 mls @ 80 mls/hr 05/29/25 12:15 05/29/25 14:09
Nss IV 1,000 mls
.[id number] ERIC Administration
Vancomycin HCl 1 gram in 200 mls @ 200 mls/hr 05/30/25 00:00
Vancocin IV 05/30/25 00:59
Q12H ERIC
Heparin Sodium 25,000 units in 250 mls @ 5 mls/hr 05/29/25 12:15 05/29/25 13:35
Heparin 05358 Units/250 Ml CHRISTOPHE SHEATH 250 mls
.Q24H ERIC Administration
500 UNITS/HR
Alteplase, Recombinant 4 mg/ 16 mls @ 4 mls/hr 05/29/25 12:15 05/29/25 17:19
Sodium Chloride 12 ml/ Device INF CATH 05/30/25 12:14 16 mls
Q4H ERIC Administration
Sodium Chloride 1,000 mls @ 46 mls/hr 05/29/25 12:15 05/29/25 14:08
Nss INF CATH Not Given
.[id number] ERIC
Lidocaine 1 patch 05/29/25 10:15
Lidocaine 4% Topical Patch TOPICAL 06/26/25 10:14
DAILY ERIC
Protocol
Propranolol HCl 60 mg 05/29/25 18:00
Propranolol Extended Release 60 Mg Capsule (24hr) PO 06/26/25 17:59
QPM ERIC
Fluticasone/Salmeterol 2 puff 05/29/25 08:00 05/29/25 07:24
Advair Hfa 45/21 Inhaler INH 06/26/25 07:59 2 puff
R BID ERIC Administration
Sodium Chloride 0 flush 05/28/25 23:00
Sodium Chloride 0.9% (Flush) Syringe IV 06/25/25 22:59
PER PROTOCOL ERIC
Valsartan 160 mg 05/29/25 18:00
Valsartan 160 Mg Tablet PO 06/26/25 17:59
QPM ERIC
Home Medications
�Medication �Instructions �Recorded
carbidopa 25 mg-levodopa 100 mg 2 tab PO QID tremor #0 tabs 11/26/24
tablet
fluticasone 100 mcg-salmeterol 50 1 inh inhalation R BID wheezing #0 11/26/24
mcg/dose blistr powdr for ea
inhalation (Advair Diskus)
propranolol 60 mg capsule,24 60 mg PO QPM Blood pressure #0 caps 11/26/24
hr,extended release
valsartan 160 mg tablet 160 mg PO QPM Blood pressure #0 11/26/24
tabs
albuterol sulfate 90 mcg/actuation 2 inh inhalation R Q6HPRN PRN sob 05/28/25
breath activated powder inhaler
(ProAir RespiClick)
[2025-05-29] MEDS: INDERAL LA 60 MG PO (17:38)
[2025-05-29] MEDS: DIOVAN 160 MG PO (17:38)
[2025-05-29 20:57] LABS: Hematocrit 36.4 % (37.0-47.0); Hemoglobin 12.3 g/dL (12.0-16.0); Platelet Count 201 10^3/uL (130-400)
[2025-05-29 21:08] LABS: Fibrinogen 208 MG/DL (199-459); INR 1.61; PT 19.7 Sec (11.4-14.6)
[2025-05-29] MEDS: VENTOLIN NEBULES 2.5 MG INH (21:10)
--- NOTE | 2025-05-29 21:29 | PTCARENOTE ---
Pt is Aox3, VSS, NSR on monitor, denies pain at this time. LLE slightly elevated at ankle with air pillow. Lytic infusing, unable to assess under Silas bandage. No obvious bleeding. Positive Doppler pulses. Foot is cool, mostly pink.
[2025-05-30] VITALS (27 sets, daily range): BP systolic 92–192; BP diastolic 41–107
[2025-05-30] MEDS: CATHFLO/ACTIVASE 16 ML INF CATH ×3 (00:08→07:55)
[2025-05-30] MEDS: CATHFLO/ACTIVASE 16 MG INF CATH ×3 (00:08→07:55)
--- NOTE | 2025-05-30 00:31 | PTCARENOTE ---
Pt tele alarm occasionally rings for HR 170-200bpm, pt with no symptoms, ekg obtained for further evaluation. At the time of EKG HR had already went back to normal. Possible the patients tremors causing for faulty alarms, will continue to monitor.
Lytic in left leg continues, leg is straight and slightly elevated, positive pulses with doppler.
[2025-05-30 02:38] LABS: Hematocrit 33.7 % (37.0-47.0); Hemoglobin 11.2 g/dL (12.0-16.0); Mean Corp Hgb Conc. 33.2 g/dL (33.0-37.0); Mean Corpuscular Volume 94.7 fL (81.0-99.0); Platelet Count 181 10^3/uL (130-400); Red Cell Dist. Width 14.5 % (11.5-14.5)
[2025-05-30 02:47] LABS: Fibrinogen 198 MG/DL (199-459); INR 1.58; PT 19.4 Sec (11.4-14.6)
[2025-05-30 03:01] LABS: Blood Urea Nitrogen 18 mg/dl (7-17); Calcium 7.2 mg/dl (8.4-10.2); Carbon Dioxide 23 mmol/L (22-30); Chloride 111 mmol/L (98-107); Estimated Creatinine Clearance 52 ml/min; Glucose 126 mg/dl (70-99); Potassium 3.3 mmol/L (3.5-5.1); Sodium 137 mmol/L (135-145); eGFR > 60.00
[2025-05-30] MEDS: OSCAL CAL 500 500 MG PO (04:45)
[2025-05-30] MEDS: KCL 20 MEQ PO ×2 (04:45→09:45)
--- NOTE | 2025-05-30 06:08 | PTCARENOTE ---
repleted potassium and calcium based off of morning labs,
[2025-05-30] MEDS: HEPARIN 25000 UNITS/250 ML VEN SHEATH ×2 (07:21→09:49)
[2025-05-30] MEDS: ADVAIR HFA 45/21 MCG INHALER 2 PUFF INH ×2 (07:40→18:26)
[2025-05-30] MEDS: VENTOLIN NEBULES 2.5 MG INH (07:40)
--- NOTE | 2025-05-30 07:47 | W.PN.INTV ---
Today's Communication / Plan
Recommendations
Continue heparin drip
Wean oxygen
Vascular surgery following- status post lysis catheter placement left popliteal
Assessment
-
89-year-old lifelong non-smoking female with a history of hypertension, essential tremors, Parkinson's, asthma and ambulatory dysfunction presented with shortness of breath found to have pulmonary emboli/extensive DVT and left lower extremity edema
evaluated by vascular surgery requiring lysis of left lower extremity extensive DVT who developed some neurologic symptoms preoperatively and went to CT head which was negative transferred to ICU prior to vascular intervention-design cell engineer consulted
for neurologic changes/PAD/eventual postoperative critical care management 05/29/2025.
Bilateral probable provoked moderate burden submassive pulmonary emboli with right ventricular strain
PESI--88, high risk, class III
DVT left lower extremity-extensive for lysis
vascular lysis therapy 05/29/2025- left popliteal vein lysis catheter placement
Leukocytosis
Mild hyperglycemia
Isolated elevation total bilirubin-2.0
DNR
Conditions present prior to admission:
Hypertension.
Essential tremor.
Parkinson's.
Asthma.
Diverticulosis
Chronic back pain
Thoracic compression fracture-T7 and T9 with mild compression fracture T8, severe compression fracture L1, moderate compression fracture L3
Ambulatory dysfunction.
Plan
Patient tolerated anticoagulation and lytic therapy
Supplemental oxygen as needed
Aspiration precautions
Incentive spirometry encouraged
Nebulizers as needed-currently not bronchospastic
CT chest personally reviewed--moderate clot burden with evidence for right ventricular strain
Continue heparin drip
Echocardiogram 05/29/2025-EF 60-65%, enlarged right ventricle, normal systolic function, mild aortic stenosis, PA systolic 45-50
Lower extremity ultrasound and CT abdomen with extensive left-sided DVT/clot burden
May need eventual hypercoagulable workup
Vascular surgery following-correspondence reviewed
Lysis of extensive left lower extremity DVT 05/29/2025-possible relook 06/20-vascular surgery has not rounded yet
DVT prophylaxis-on full anticoagulation
Nutrition
Eventual PT/OT
Reviewed with son at the bedside
Outpatient pulmonary follow-up
Critical care statement: A total of 40 minutes of critical care time was provided for this patient today. This includes management of unstable vital signs, evaluation for thrombolytic therapy, management of large pulmonary embolism, evaluation of
the patient at bedside, reviewing the patient's pertinent medical records including radiographs, microbiology, laboratory evaluations, and discussion with primary team, consultants, pharmacy, and critical care nursing.
Diagnostic data:
Chest x-ray 05/22/2025-small horizontal band of increased density right lower lobe compatible with discoid atelectasis
CT chest 05/28/2025-bilateral acute pulmonary thromboembolism with moderate clot burden with findings of right heart strain, nodular enlargement of the right thyroid, small calcified granuloma right lung apex, chronic compression fractures
CT abdomen and pelvis 05/28/2025-deep venous thrombosis left lower extremity, left iliac veins in the IVC to just below the level of the renal veins
CT head 05/29/2025-no acute intracranial abnormalities
Lower extremity ultrasound 05/28/2025-extensive left lower extremity occlusive DVT throughout left common femoral, femoral, popliteal, peroneal and posterior tibial veins
Echocardiogram 11/25/2024-EF 60-65%, no significant valvular disease
Subjective Dataa
Subjective Data
Date of Service:
Date of Service: May 30, 2025
Chief Complaint: Network Internship Follow Up and Pulmonary Follow Up
Subjective:
feels better, no complaints of shortness of breath, productive cough, abdominal pain and leg swelling has decreased significantly
Review of Systems
General: Other ( per HPI)
Objective Data
Data Reviewed
Vital Signs / I&O / Oxygen:
Vital Signs
Temp Pulse Resp BP Pulse Ox
98 F 58 16 95/58 97
05/30/25 07:24 05/30/25 07:44 05/30/25 07:44 05/30/25 06:00 05/30/25 07:44
Intake and Output
05/29/25 05/30/25 05/31/25
06:59 06:59 06:59
Intake Total 1316 / 1316
Output Total 150 / 150 560 / 560
Balance -150 / -150 756 / 756
SaO2 97
Nasal Cannula flow liters per 3
minute
Physical Exam
General: Respiratory Distress (n) and Comfortable
HEENT: Normocephalic, Anicteric and Moist Mucous Membranes
Cardiovascular: Regular Rhythm and Peripheral Edema ( left lower extremity-wrapped)
Respiratory: Wheeze (n), Crackles (n), Rhonchi (n), Non-Labored Respirations, Accessory Resp Muscle Use (n) and Stridor (n)
GI: Soft, Non Distended and Non Tender
Neurology: Awake, Alert and No Motor Deficits
Skin: Warm, Good Color, Cyanosis (n) and Jaundice (nn)
Labs/Micro/Reports
Lab Data
05/30/25 02:26
Laboratory Results
05/29/25 05/29/25 05/29/25
09:39 14:20 16:30
PT 16.3 H
INR 1.26
APTT 67.8 H Cancelled
05/29/25 05/30/25 05/30/25
20:44 00:15 02:26
PT 19.7 H Cancelled 19.4 H
INR 1.61 Cancelled 1.58
APTT
[2025-05-30] MEDS: SINEMET 25-100 2 TABLET PO ×3 (07:54→18:16)
[2025-05-30] MEDS: LIDOCAINE 4% PATCH TOPICAL (07:55)
[2025-05-30 08:14] LABS: Hematocrit 35.5 % (37.0-47.0); Hemoglobin 12.0 g/dL (12.0-16.0); Platelet Count 202 10^3/uL (130-400)
[2025-05-30 08:24] LABS: INR 1.42; PT 17.6 Sec (11.4-14.6)
[2025-05-30 08:25] LABS: Fibrinogen 226 MG/DL (199-459)
--- NOTE | 2025-05-30 08:45 | PTCARENOTE ---
Pt is Aox3, VSS, SB on monitor with PAC/PVCs, denies pain at this time. LLE slightly elevated at ankle with air pillow. Lytic infusing, unable to assess under Silas bandage. No obvious bleeding. Positive Doppler pulses. Foot is warm, pink toes. Foot
appears pale where dopplers taken.
[2025-05-30 09:02] LABS: Magnesium 1.7 mg/dl (1.6-2.3)
--- NOTE | 2025-05-30 09:11 | W.PN.HOSP.TC ---
Today's Communication/Plan
-
Continue lytic therapy
Continue heparin
Check hemoglobin A1c
Replace potassium and magnesium
Assessment / Plan
Assessment / Plan
89 y/o female with LLe edema. Nursing noted a mild right facial droop at 9:25 AM. Patient was seen immediately. Patient's son was not sure if there was a facial droop but since patient is on heparin drip stroke alert was called and patient was
sent to CT.
Patient was seen in the ER on 05/22/2025 for shortness of breath and was discharged on a course of prednisone. Since then she continued to have shortness of breath. Son came back from vacation and noted that she also has left lower extremity edema .
Has mild burning in the left leg
On examination patient awake alert oriented x 3
Cardiovascular system S1-S2 appreciated
Chest clear to auscultation decreased breath sounds
Abdomen soft and nontender
No facial droop noted
Right hand essential tremor
Left lower extremity edema better, color better, patient still has some degree of restriction for dorsiflexion on the left foot
Head CT-no acute changes
CT abdomen and pelvis-DVT in the left lower extremity, iliac veins, And to the IVC to just below the level of the renal veins
CT chest-positive for bilateral acute PE. Moderate clot burden secondary findings suggesting right heart strain. Mild opacity in the posterior basilar right lower lobe atelectasis versus small pulmonary infarct
EKG-normal sinus rhythm. Possible left atrial enlargement. T wave abnormality consider anterolateral ischemia
Echo 05/29/2025-EF 60 to 65%. Normal regional wall motion. Enlarged RV. Normal RV SF, Mild , mild to moderate TR, PA pressure 45 to 50 mmHg, mild ascending aortic dilatation 4 cm
# Extensive left lower extremity DVT
Status post left popliteal vein thrombolysis by vascular on 05/29/2025
Continue heparin drip
Edema decreased with Silas bandages and thrombolysis
# Submassive bilateral PE
PERT alert was called-no plans for thrombolysis for PE
Heparin drip continued
Echo as above
# Hypokalemia-replace potassium and magnesium
# Questionable right facial droop
Head CT negative for bleed
No further CVA workup pursued
# Hyperglycemia-check hemoglobin A1c
# Ascending aortic dilatation 4 cm
# Asthma-NOS. Continue Advair or equivalent and nebulizer treatments.
# Essential hypertension-continue valsartan, propranolol
# Parkinson disease-continue Sinemet
# Essential tremor-continue propranolol
# Diverticulosis
# Chronic back pain-moderate compression fractures T7 and T9, mild compression fracture of T8 ,severe compression fracture L1, moderate compression fracture L3, degenerative anterolisthesis L4 on L 5
# Ambulatory dysfunction
# DNR
Discussed with son at bedside
Anticipated Discharge: > 48 hours
Subjective/Interval History
-
Date of Service: May 30, 2025
Objective Data
-
Labs:
Laboratory Results
05/30/25 05/30/25 05/30/25
00:15 02:26 06:15
WBC 14.8 H
Hgb Cancelled 11.2 L
Hct Cancelled 33.7 L
Plt Count Cancelled 181 Cancelled
PT Cancelled 19.4 H
INR Cancelled 1.58
Sodium 137
Potassium 3.3 L
Chloride 111 H
Carbon Dioxide 23
BUN 18 H
Creatinine 0.6
Glucose 126 H
Calcium 7.2 L
05/30/25 05/30/25 05/30/25
08:09 12:15 18:15
WBC
Hgb 12.0 Cancelled Cancelled
Hct 35.5 L Cancelled Cancelled
Plt Count 202 Cancelled Cancelled
PT 17.6 H Cancelled Cancelled
INR 1.42 Cancelled Cancelled
Sodium
Potassium
Chloride
Carbon Dioxide
BUN
Creatinine
Glucose
Calcium
Vital Signs:
Vital Signs
Temp Pulse Resp BP Pulse Ox
98 F 58 16 95/58 96
05/30/25 07:24 05/30/25 07:44 05/30/25 07:44 05/30/25 06:00 05/30/25 08:07
I&O
05/29/25 05/30/25 05/31/25
06:59 06:59 06:59
Intake Total 1316 / 1371 110 / 110
Output Total 150 / 150 560 / 560 30 / 30
Balance -150 / -150 756 / 811 80 / 80
[2025-05-30] MEDS: TYLENOL 650 MG PO (09:40)
[2025-05-30] MEDS: MAGNESIUM OXIDE 500 MG PO (09:45)
[2025-05-30] MEDS: NSS 1000 IV ×4 (09:47→22:31)
[2025-05-30] MEDS: NSS 1000 INF CATH (09:47)
[2025-05-30] MEDS: VENTOLIN NEBULES INH (10:56)
--- NOTE | 2025-05-30 10:57 | PTCARENOTE ---
To [facility] lab for eval of LLE.
--- NOTE | 2025-05-30 11:58 | W.IMMPOSTOP ---
Surgical Immed Post Op Note
-
Primary Surgeon: cyn
Assisting Surgeon: none
Pre-op Diagnosis: dvt
Post-op Diagnosis: same
Procedure Performed: venogram, mechanical thrombectomy, angioplasty and stent L CIV [id number]
Anesthesia Type: Sedation
Specimen / Cultures: none
Estimated Blood Loss: 5
Complications: none
Operative Findings: residual thrombus in IVC
[2025-05-30 12:30] LABS: Glycohemoglobin (HgbA1c) 5.9 % (4.0-5.6)
[2025-05-30 13:22] LABS: Hematocrit 33.2 % (37.0-47.0); Hemoglobin 11.5 g/dL (12.0-16.0); Mean Corp Hgb Conc. 34.6 g/dL (33.0-37.0); Mean Corpuscular Volume 94.3 fL (81.0-99.0); Platelet Count 165 10^3/uL (130-400); Red Cell Dist. Width 14.7 % (11.5-14.5)
[2025-05-30 13:31] LABS: APTT 42.1 Sec (23.4-35.0)
--- NOTE | 2025-05-30 14:19 | PTCARENOTE ---
Pt returned from vasc lab. Lysis cath removed. LLE with Silas wrap from thigh to foot. Cap refill 2sec, DP pulses by doppler, central foot edema and paleness continues. Pt without complaints of pain. Burkett cath with scant bloody urine present. IVF
increased to 100cc/hr and heparin systemic infusing as ordered. Labs drawn. Tolerating clear liq, will advance to reg diet.
--- NOTE | 2025-05-30 15:19 | PTCARENOTE ---
Vomiting after solid food intake. Pt reporting no nausea before or after vomiting. Refusing nausea med
[2025-05-30] MEDS: INDERAL LA 60 MG PO (18:17)
[2025-05-30 18:45] LABS: APTT 40.8 Sec (23.4-35.0)
[2025-05-30] MEDS: ZOFRAN 4 MG IV (19:06)
[2025-05-30] MEDS: HEPARIN 4700 UNITS IV (19:23)
--- NOTE | 2025-05-30 21:24 | PTCARENOTE ---
Received pt from previous RN. Pt AAOx3, mild right sided facial droop, unchanged, forgetful @ times, hand tremors. Neurovascular checks Q1 (see worklist). Sinus patricio/NSR w/ PVCs and PACs on the monitor, doppler left pedal pulse. Pt on 1L NC O2 sat
94%, tachypneic, lungs diminished. Pt with nausea, vomited, poor appetite, PRN Zofran. Burkett in place, draining bloody urine, ICU PLASTICS REPAIRER notified about pt decreased UO, NS bolus ordered (see MAR). Left leg wrapped in JULIEN wrap. Heparin gtt (see
worklist). NS infusing @ 100 ml/hr. Plan of care discussed. Mouth care provided. Pt is laying in bed with call braxton in reach. Safe environment maintained.
[2025-05-30] MEDS: SINEMET 25-100 PO (21:43)
[2025-05-31] VITALS (19 sets, daily range): BP systolic 100–175; BP diastolic 45–99; PULSE 66; O2SAT 97; BMI 22.1
--- NOTE | 2025-05-31 01:05 | PTCARENOTE ---
Systems reviewed, no new changes in assessment. Neurovascular checks per protocol (see worklist). Safe environment maintained.
[2025-05-31 01:54] LABS: APTT 78.0 Sec (23.4-35.0)
[2025-05-31] MEDS: VENTOLIN NEBULES 2.5 MG INH ×2 (03:06→17:29)
[2025-05-31 05:28] LABS: Hematocrit 32.8 % (37.0-47.0); Hemoglobin 10.8 g/dL (12.0-16.0); Mean Corp Hgb Conc. 32.9 g/dL (33.0-37.0); Mean Corpuscular Volume 95.9 fL (81.0-99.0); Platelet Count 192 10^3/uL (130-400); Red Cell Dist. Width 14.8 % (11.5-14.5)
--- NOTE | 2025-05-31 05:42 | PTCARENOTE ---
Systems reviewed, no new changes in assessment. AM labs provided. CHG bath given. Safe environment maintained.
[2025-05-31 05:51] LABS: Blood Urea Nitrogen 19 mg/dl (7-17); Calcium 7.5 mg/dl (8.4-10.2); Carbon Dioxide 20 mmol/L (22-30); Chloride 117 mmol/L (98-107); Estimated Creatinine Clearance 46 ml/min; Glucose 89 mg/dl (70-99); Potassium 4.1 mmol/L (3.5-5.1); Sodium 139 mmol/L (135-145); eGFR > 60.00
[2025-05-31] MEDS: ZOFRAN 4 MG IV (07:16)
[2025-05-31] MEDS: NSS 1000 IV ×2 (07:30→17:22)
[2025-05-31] MEDS: ADVAIR HFA 45/21 MCG INHALER 2 PUFF INH ×2 (07:37→20:27)
[2025-05-31 07:38] LABS: APTT 45.8 Sec (23.4-35.0)
[2025-05-31] MEDS: LIDOCAINE 4% PATCH TOPICAL (07:44)
[2025-05-31] MEDS: HEPARIN 4700 UNITS IV (07:50)
--- NOTE | 2025-05-31 07:50 | W.PN.INTV ---
Today's Communication / Plan
Recommendations
Slowly improving
Wean FiO2
Activity per vascular surgery
Heparin continues-eventual conversion to Eliquis
If remains hemodynamically stable and no further surgical interventions then could be transferred out of ICU-deputy commissioner will sign off-pulmonary will follow briefly
Assessment
-
89-year-old lifelong non-smoking female with a history of hypertension, essential tremors, Parkinson's, asthma and ambulatory dysfunction presented with shortness of breath found to have pulmonary emboli/extensive DVT and left lower extremity edema
evaluated by vascular surgery requiring lysis of left lower extremity extensive DVT who developed some neurologic symptoms preoperatively and went to CT head which was negative transferred to ICU prior to vascular intervention-deputy commissioner consulted
for neurologic changes/PAD/eventual postoperative critical care management 05/29/2025.
Bilateral probable provoked moderate burden submassive pulmonary emboli with right ventricular strain
PESI--88, high risk, class III
DVT left lower extremity-extensive for lysis
vascular lysis therapy 05/29/2025- left popliteal vein lysis catheter placement
vascular procedure 05/30/25-venogram, mechanical thrombectomy, angioplasty and stent left CIV
Leukocytosis
Mild hyperglycemia
Isolated elevation total bilirubin-2.0
DNR
Conditions present prior to admission:
Hypertension.
Essential tremor.
Parkinson's.
Asthma.
Diverticulosis
Chronic back pain
Thoracic compression fracture-T7 and T9 with mild compression fracture T8, severe compression fracture L1, moderate compression fracture L3
Ambulatory dysfunction.
Plan
Patient tolerated anticoagulation and lytic therapy
Supplemental oxygen as needed
Aspiration precautions
Incentive spirometry encouraged
Nebulizers as needed-currently not bronchospastic
Propranolol and valsartan reinitiated
CT chest personally reviewed--moderate clot burden with evidence for right ventricular strain
Continue heparin drip
Echocardiogram 05/29/2025-EF 60-65%, enlarged right ventricle, normal systolic function, mild aortic stenosis, PA systolic 45-50
Lower extremity ultrasound and CT abdomen with extensive left-sided DVT/clot burden
May need eventual hypercoagulable workup
Vascular surgery following-correspondence reviewed
Lysis of extensive left lower extremity DVT 05/29/2025-possible relook 05/30/25--venogram, mechanical thrombectomy, angioplasty and stent left CIV
DVT prophylaxis-on full anticoagulation-eventual conversion to Eliquis
Nutrition
Eventual PT/OT
Reviewed with son at the bedside on 05/30/25
If remains hemodynamically stable and no further surgical interventions then could be transferred out of ICU-deputy commissioner will sign off-pulmonary will follow briefly
Outpatient pulmonary follow-up
Reviewed the patient's pertinent medical records including radiographs, microbiology, laboratory evaluations, and discussion with primary team, consultants, pharmacy, and critical care nursing.
Diagnostic data:
Chest x-ray 05/22/2025-small horizontal band of increased density right lower lobe compatible with discoid atelectasis
CT chest 05/28/2025-bilateral acute pulmonary thromboembolism with moderate clot burden with findings of right heart strain, nodular enlargement of the right thyroid, small calcified granuloma right lung apex, chronic compression fractures
CT abdomen and pelvis 05/28/2025-deep venous thrombosis left lower extremity, left iliac veins in the IVC to just below the level of the renal veins
CT head 05/29/2025-no acute intracranial abnormalities
Lower extremity ultrasound 05/28/2025-extensive left lower extremity occlusive DVT throughout left common femoral, femoral, popliteal, peroneal and posterior tibial veins
Echocardiogram 11/25/2024-EF 60-65%, no significant valvular disease
Subjective Dataa
Subjective Data
Date of Service:
Date of Service: May 31, 2025
Chief Complaint: Energy Conservation Technician Follow Up and Pulmonary Follow Up
Subjective:
Overall feels better, no complaints of shortness of breath at rest, chest pain, abdominal pain, and leg swelling is decreased
Review of Systems
General: Other ( per HPI)
Objective Data
Data Reviewed
Vital Signs / I&O / Oxygen:
Vital Signs
Temp Pulse Resp BP Pulse Ox
98.7 F 68 22 109/65 96
05/31/25 04:05 05/31/25 07:39 05/31/25 07:39 05/31/25 07:00 05/31/25 07:39
Intake and Output
05/30/25 05/31/25 06/01/25
06:59 06:59 06:59
Intake Total 1316 / 1451 3412 / 3412
Output Total 560 / 560 388 / 388
Balance 756 / 891 3024 / 3024
SaO2 96
Nasal Cannula flow liters per 1
minute
Physical Exam
General: Respiratory Distress (n) and Comfortable
HEENT: Normocephalic, Anicteric and Moist Mucous Membranes
Cardiovascular: Regular Rhythm and Peripheral Edema ( left lower extremity-wrapped)
Respiratory: Wheeze (n), Crackles (n), Rhonchi (n), Non-Labored Respirations, Accessory Resp Muscle Use (n) and Stridor (n)
GI: Soft, Non Distended and Non Tender
Neurology: Awake, Alert and No Motor Deficits
Skin: Warm, Good Color, Cyanosis (n) and Jaundice (nn)
Labs/Micro/Reports
Lab Data
05/31/25 05:12
05/31/25 05:12
Laboratory Results
05/30/25 05/30/25 05/30/25
08:09 12:15 13:13
PT 17.6 H Cancelled
INR 1.42 Cancelled
APTT 42.1 H
05/30/25 05/30/25 05/31/25
18:15 18:23 01:36
PT Cancelled
INR Cancelled
APTT 40.8 H 78.0 H
05/31/25
07:24
PT
INR
APTT 45.8 H
--- NOTE | 2025-05-31 07:56 | PTCARENOTE ---
Received pt from previous RN. Pt AAOx3, mild right sided facial droop, unchanged, forgetful @ times, hand tremors. Neurovascular checks Q1 (see worklist). Sinus patricio/NSR w/ PVCs and PACs on the monitor, doppler left pedal pulse. Pt on 2L NC O2 sat
95%, tachypneic, lungs diminished. Pt with nausea, poor appetite, PRN Zofran given. Burkett in place, draining chelly urine. Left leg wrapped in JULIEN wrap. Heparin gtt (see worklist). NS infusing @ 100 ml/hr. Plan of care discussed. Mouth care provided,
face washed. Pt is laying in bed with call braxton in reach. Safe environment maintained.
--- NOTE | 2025-05-31 09:07 | W.PN.HOSP.TC ---
Today's Communication/Plan
-
Continue heparin drip
Will change to Eliquis eventually
Encourage out of bed when okay with vascular
Assessment / Plan
Assessment / Plan
89 y/o female with LLe edema. Nursing noted a mild right facial droop at 9:25 AM. Patient was seen immediately. Patient's son was not sure if there was a facial droop but since patient is on heparin drip stroke alert was called and patient was
sent to CT.
Patient was seen in the ER on 05/22/2025 for shortness of breath and was discharged on a course of prednisone. Since then she continued to have shortness of breath. Son came back from vacation and noted that she also has left lower extremity edema .
Feels well
On examination patient awake alert oriented
Cardiovascular system S1-S2 appreciated
Chest clear to auscultation decreased breath sounds
Abdomen soft and nontender
Left lower extremity edema better, color better, patient still has some degree of restriction for dorsiflexion on the left foot, edema of the foot noted
Head CT-no acute changes
CT abdomen and pelvis-DVT in the left lower extremity, iliac veins, And to the IVC to just below the level of the renal veins
CT chest-positive for bilateral acute PE. Moderate clot burden secondary findings suggesting right heart strain. Mild opacity in the posterior basilar right lower lobe atelectasis versus small pulmonary infarct
EKG-normal sinus rhythm. Possible left atrial enlargement. T wave abnormality consider anterolateral ischemia
Echo 05/29/2025-EF 60 to 65%. Normal regional wall motion. Enlarged RV. Normal RV SF, Mild , mild to moderate TR, PA pressure 45 to 50 mmHg, mild ascending aortic dilatation 4 cm
# Extensive left lower extremity DVT
Status post left popliteal vein thrombolysis by vascular on 05/29/[address] Burkett
Status post mechanical thrombectomy of the inferior vena cava by Dr. Gonzalez on 05/30/2025
Continue heparin drip
Edema decreased with Silas bandages and thrombolysis
# Submassive bilateral PE
PERT alert was called-no plans for thrombolysis for PE
Heparin drip continued
Echo as above
Eventually transition to Eliquis
# Mild hematuria resolving
# Hypokalemia-replace potassium and magnesium
# Questionable right facial droop noted by RN on 05/29/[address] negative for bleed
No further CVA workup pursued
# Hyperglycemia-hemoglobin A1c 5.9
# Ascending Aortic Dilatation 4 cm
# Asthma-NOS. Continue Advair or equivalent and nebulizer treatments.
# Essential hypertension-continue Valsartan, Propranolol
# Parkinson disease-continue Sinemet
# Essential tremor-continue propranolol
# Diverticulosis
# Chronic back pain-moderate compression fractures T7 and T9, mild compression fracture of T8 ,severe compression fracture L1, moderate compression fracture L3, degenerative anterolisthesis L4 on L 5
# Ambulatory dysfunction
# DNR
Discussed with RN at bedside
Anticipated Discharge: > 48 hours
Subjective/Interval History
-
Date of Service: May 31, 2025
Objective Data
-
Labs:
Laboratory Results
05/31/25 05/31/25 05/31/25
01:36 05:12 07:24
WBC 13.6 H
Hgb 10.8 L
Hct 32.8 L
Plt Count 192
APTT 78.0 H 45.8 H
Sodium 139
Potassium 4.1
Chloride 117 H
Carbon Dioxide 20 L
BUN 19 H
Creatinine 0.7
Glucose 89
Calcium 7.5 L
05/31/25
14:00
WBC
Hgb
Hct
Plt Count
APTT Pending
Sodium
Potassium
Chloride
Carbon Dioxide
BUN
Creatinine
Glucose
Calcium
Vital Signs:
Vital Signs
Temp Pulse Resp BP Pulse Ox
98.7 F 69 29 124/83 96
05/31/25 04:05 05/31/25 08:00 05/31/25 08:00 05/31/25 08:00 05/31/25 08:00
I&O
05/30/25 05/31/25 06/01/25
06:59 06:59 06:59
Intake Total 1316 / 1451 3412 / 3519 323 / 323
Output Total 560 / 560 388 / 453 115 / 115
Balance 756 / 891 3024 / 3066 208 / 208
--- NOTE | 2025-05-31 10:57 | W.PN.VS ---
Today's Communication / Plan
-
PO meds
increase activity
follow up in office in 2 weeks
Assessment/Plan
-
doing well post lysis
- ok to change to po meds and stop hep
- ok to ambulate
- PT
Subjective Data
-
Date of Service: May 31, 2025
doing well
no complaints
Objective Data
-
Vital Signs
Temp Pulse Resp BP Pulse Ox
99.2 F 67 27 116/68 71
05/31/25 08:00 05/31/25 10:00 05/31/25 10:00 05/31/25 10:00 05/31/25 10:00
Intake and Output
05/30/25 05/31/25 06/01/25
06:59 06:59 06:59
Intake Total 1316 / 1451 3412 / 3519 432 / 432
Output Total 560 / 560 388 / 453 145 / 145
Balance 756 / 891 3024 / 3066 287 / 287
Intake:
Oral fluids 360 / 360 50 / 50
IV fluids (Total) 956 / 1091 3362 / 3469 432 / 432
Nss 1,000 ml @ 100 mls/hr IV . 1700 / 1800 400 / 400
Q10H ERIC Rx#:[id number]
Nss 1,000 ml @ 80 mls/hr IV . 320 / 320
P16V28P ERIC Rx#:[id number]
bolus 1000 / 1000
carrier plus alteplase 850 / 900 200 / 200
heparin 106 / 111 142 / 149 32 / 32
Output:
Urine, Burkett 560 / 560 388 / 453 145 / 145
Lab Results
05/31/25 05:12
05/31/25 05:12
Calcium 7.5 mg/dl (8.4-10.2) L 05/31/25 05:12
Magnesium 1.7 mg/dl (1.6-2.3) 05/30/25 02:26
Total Bilirubin 2.0 mg/dl (0.2-1.3) H 05/28/25 18:02
AST 22 U/L (14-36) 05/28/25 18:02
ALT 11 U/L (0-35) 05/28/25 18:02
Alkaline Phosphatase 103 U/L (38-126) 05/28/25 18:02
Total Protein 6.6 g/dl (6.3-8.2) 05/28/25 18:02
Albumin 3.7 g/dl (3.5-5.0) 05/28/25 18:02
Physical Exam
-
leg soft
foot warm
foot pink
min swelling
[2025-05-31] MEDS: SINEMET 25-100 PO (11:16)
[2025-05-31] MEDS: SINEMET 25-100 2 TABLET PO ×3 (11:52→22:17)
[2025-05-31] MEDS: ELIQUIS 10 MG PO ×2 (11:52→20:26)
[2025-05-31] MEDS: MAGNESIUM OXIDE 500 MG PO (11:52)
--- NOTE | 2025-05-31 12:12 | PTCARENOTE ---
Assessment unchanged. Dr Gonzalez to bedside and PO anticoagulant started, heparin gtt stopped. Burkett cath removed and purwick placed. Tommy Soria updated via phone.
--- NOTE | 2025-05-31 15:44 | PTCARENOTE ---
Pt OOB to chair with PT-see note. Assessment unchanged.
[2025-05-31 16:30] LABS: Vitamin D, 25-OH*** 42.4 ng/mL (30-80)
[2025-05-31] MEDS: INDERAL LA 60 MG PO (17:22)
--- NOTE | 2025-05-31 17:31 | PTCARENOTE ---
Pt notified of pending transfer. States feeling SOB and requesting neb tx. Exp wheezing auscultated. Resp notified.
--- NOTE | 2025-05-31 18:34 | PTCARENOTE ---
Received pt from ICU. AOx3 tremors.BS for 0mls, was on purewick per pt and would like to continue, explained we can use bedpan. NV check LLE BRANCH CHIEF <2 sec pink + sensation. RLE + pedals. dressings CDI. NSS 100
[2025-06-01] VITALS (7 sets, daily range): BP systolic 125–169; BP diastolic 64–82; PULSE 57; O2SAT 100
[2025-06-01] MEDS: NSS 1000 IV (03:36)
[2025-06-01 05:54] LABS: Hematocrit 32.8 % (37.0-47.0); Hemoglobin 10.6 g/dL (12.0-16.0); Mean Corp Hgb Conc. 32.3 g/dL (33.0-37.0); Mean Corpuscular Volume 97.3 fL (81.0-99.0); Platelet Count 211 10^3/uL (130-400); Red Cell Dist. Width 15.0 % (11.5-14.5)
[2025-06-01 06:24] LABS: Blood Urea Nitrogen 15 mg/dl (7-17); Calcium 7.6 mg/dl (8.4-10.2); Carbon Dioxide 23 mmol/L (22-30); Chloride 117 mmol/L (98-107); Estimated Creatinine Clearance 46 ml/min; Glucose 106 mg/dl (70-99); Magnesium 1.9 mg/dl (1.6-2.3); Potassium 3.7 mmol/L (3.5-5.1); Sodium 141 mmol/L (135-145); eGFR > 60.00
[2025-06-01] MEDS: ADVAIR HFA 45/21 MCG INHALER 2 PUFF INH ×2 (07:34→20:11)
[2025-06-01] MEDS: VENTOLIN NEBULES 2.5 MG INH ×2 (07:34→11:21)
[2025-06-01] MEDS: LIDOCAINE 4% PATCH TOPICAL (09:12)
[2025-06-01] MEDS: ELIQUIS 10 MG PO ×2 (10:16→20:08)
[2025-06-01] MEDS: SINEMET 25-100 2 TABLET PO ×3 (10:17→21:31)
[2025-06-01] MEDS: MAGNESIUM OXIDE 500 MG PO (10:17)
[2025-06-01] MEDS: SINEMET 25-100 PO (10:17)
--- NOTE | 2025-06-01 10:55 | W.PN.PUL.V3 ---
Today's Communication / Plan
-
Wean FiO2
Increase activity
Vascular surgery following
Eliquis initiated and heparin drip discontinued
Outpatient pulmonary follow-up
Pulmonary will follow briefly
Assessment
-
89-year-old lifelong non-smoking female with a history of hypertension, essential tremors, Parkinson's, asthma and ambulatory dysfunction presented with shortness of breath found to have pulmonary emboli/extensive DVT and left lower extremity edema
evaluated by vascular surgery requiring lysis of left lower extremity extensive DVT who developed some neurologic symptoms preoperatively and went to CT head which was negative transferred to ICU prior to vascular intervention-quarry supervisor consulted
for neurologic changes/PAD/eventual postoperative critical care management 05/29/2025.
Bilateral probable provoked moderate burden submassive pulmonary emboli with right ventricular strain
PESI--88, high risk, class III
DVT left lower extremity-extensive for lysis
vascular lysis therapy 05/29/2025- left popliteal vein lysis catheter placement
vascular procedure 05/30/25-venogram, mechanical thrombectomy, angioplasty and stent left CIV
Leukocytosis
Mild hyperglycemia
Isolated elevation total bilirubin-2.0
DNR
Conditions present prior to admission:
Hypertension.
Essential tremor.
Parkinson's.
Asthma.
Diverticulosis
Chronic back pain
Thoracic compression fracture-T7 and T9 with mild compression fracture T8, severe compression fracture L1, moderate compression fracture L3
Ambulatory dysfunction.
Plan
Patient tolerated anticoagulation and lytic therapy
Supplemental oxygen as needed-attempt to wean
Aspiration precautions
Incentive spirometry encouraged
Nebulizers as needed-currently not bronchospastic
Propranolol and valsartan reinitiated on 05/31/2025
CT chest personally reviewed--moderate clot burden with evidence for right ventricular strain
Continue heparin drip
Echocardiogram 05/29/2025-EF 60-65%, enlarged right ventricle, normal systolic function, mild aortic stenosis, PA systolic 45-50
Lower extremity ultrasound and CT abdomen with extensive left-sided DVT/clot burden
May need eventual hypercoagulable workup
Vascular surgery following-correspondence reviewed
Lysis of extensive left lower extremity DVT 05/29/2025-possible relook 05/30/25--venogram, mechanical thrombectomy, angioplasty and stent left CIV
DVT prophylaxis-on full anticoagulation--converted to Eliquis
Nutrition
Eventual PT/OT
Reviewed with son at the bedside on 05/30/25
Outpatient pulmonary follow-up
Reviewed with nursing
Diagnostic data:
Chest x-ray 05/22/2025-small horizontal band of increased density right lower lobe compatible with discoid atelectasis
CT chest 05/28/2025-bilateral acute pulmonary thromboembolism with moderate clot burden with findings of right heart strain, nodular enlargement of the right thyroid, small calcified granuloma right lung apex, chronic compression fractures
CT abdomen and pelvis 05/28/2025-deep venous thrombosis left lower extremity, left iliac veins in the IVC to just below the level of the renal veins
CT head 05/29/2025-no acute intracranial abnormalities
Lower extremity ultrasound 05/28/2025-extensive left lower extremity occlusive DVT throughout left common femoral, femoral, popliteal, peroneal and posterior tibial veins
Echocardiogram 11/25/2024-EF 60-65%, no significant valvular disease
Subjective Data
-
Date of Service:
Date of Service: June 01, 2025
Chief Complaint: Pulmonary Follow Up and Dyspnea Follow Up
Subjective:
she denies any shortness of breath, chest pain, pleurisy, abdominal pain
Review of Systems
General: Other ( Per HPI)
Objective Data
Data Reviewed
Vital Signs / I&O:
Vital Signs
Temp Pulse Resp BP Pulse Ox
97.6 F 62 18 149/68 98
06/01/25 07:50 06/01/25 07:50 06/01/25 07:50 06/01/25 07:50 06/01/25 07:50
Intake and Output
05/31/25 06/01/25 06/02/25
06:59 06:59 06:59
Intake Total 3412 / 3519 2441 / 2441
Output Total 388 / 453 210 / 210
Balance 3024 / 3066 2231 / 2231
SaO2: 98
Nasal Cannula flow liters per minute: 1
Physical Exam
General: Respiratory Distress (n) and Comfortable
HEENT: Normocephalic, Anicteric and Moist Mucous Membranes
Cardiovascular: Regular Rhythm
Respiratory: Wheeze (n), Crackles, Rhonchi (n), Non-Labored Respirations, Accessory Resp Muscle Use (n) and Stridor (n)
GI: Soft, Non Distended and Non Tender
Neurology: Awake, Alert and No Motor Deficits
Skin: Warm, Good Color, Cyanosis (n), Jaundice (n) and Rash
Labs/Micro/Reports
Lab Data
06/01/25 05:28
06/01/25 05:28
Laboratory Results
05/31/25
14:00
APTT Cancelled
--- NOTE | 2025-06-01 14:30 | W.PN.HOSP.TC ---
Today's Communication/Plan
-
Wean oxygen as tolerated
Chest x-ray
Physical therapy to finalize the plans.
If patient needs rehab son would like [facility]
Assessment / Plan
Assessment / Plan
89 y/o female with LLe edema. Nursing noted a mild right facial droop at 9:25 AM. Patient was seen immediately. Patient's son was not sure if there was a facial droop but since patient is on heparin drip stroke alert was called and patient was
sent to CT.
Patient was seen in the ER on 05/22/2025 for shortness of breath and was discharged on a course of prednisone. Since then she continued to have shortness of breath. Son came back from vacation and noted that she also has left lower extremity edema .
Feels SOB. No Chdest pain. Says sthe SOB didnt get better
On examination patient awake alert oriented
Cardiovascular system S1-S2 appreciated
Chest clear to auscultation decreased breath sounds
Abdomen soft and nontender
Left lower extremity edema better, color better,
Head CT-no acute changes
CT abdomen and pelvis-DVT in the left lower extremity, iliac veins, And to the IVC to just below the level of the renal veins
CT chest-positive for bilateral acute PE. Moderate clot burden secondary findings suggesting right heart strain. Mild opacity in the posterior basilar right lower lobe atelectasis versus small pulmonary infarct
EKG-normal sinus rhythm. Possible left atrial enlargement. T wave abnormality consider anterolateral ischemia
Echo 05/29/2025-EF 60 to 65%. Normal regional wall motion. Enlarged RV. Normal RV SF, Mild , mild to moderate TR, PA pressure 45 to 50 mmHg, mild ascending aortic dilatation 4 cm
# Extensive left lower extremity DVT
Status post left popliteal vein thrombolysis by vascular on 05/29/[address] Burkett
Status post mechanical thrombectomy of the inferior vena cava by Dr. Gonzalez on 05/30/2025
Edema decreased with Silas bandages and thrombolysis
Eliquis started
# Submassive bilateral PE
PERT alert was called-no plans for thrombolysis for PE
Heparin drip continued
Echo as above
Continue Eliquis
# Mild hematuria resolving
# Hypokalemia-replaced
# Questionable right facial droop noted by RN on 05/29/[address] negative for bleed
No further CVA workup pursued
# Hyperglycemia-Hemoglobin A1c 5.9
# Ascending Aortic Dilatation 4 cm
# Asthma-NOS. Continue Advair or equivalent and nebulizer treatments.
# Essential hypertension-continue Valsartan, Propranolol
# Parkinson disease-continue Sinemet
# Essential tremor-continue propranolol
# Diverticulosis
# Chronic back pain-moderate compression fractures T7 and T9, mild compression fracture of T8 ,severe compression fracture L1, moderate compression fracture L3, degenerative anterolisthesis L4 on L 5
# Ambulatory dysfunction
# DNR
Discussed with RN
Called Son . In case patient needs to go to rehab son would like [facility]
Anticipated Discharge: 24 - 48 hours
Subjective/Interval History
-
Date of Service: June 01, 2025
Objective Data
-
Labs:
Laboratory Results
06/01/25
05:28
WBC 10.0
Hgb 10.6 L
Hct 32.8 L
Plt Count 211
Sodium 141
Potassium 3.7
Chloride 117 H
Carbon Dioxide 23
BUN 15
Creatinine 0.7
Glucose 106 H
Calcium 7.6 L
Vital Signs:
Vital Signs
Temp Pulse Resp BP Pulse Ox
97.8 F 78 22 167/78 96
06/01/25 11:10 06/01/25 11:30 06/01/25 11:30 06/01/25 11:10 06/01/25 11:30
I&O
07/05/25 07/06/25 07/07/25
06:59 06:59 06:59
Intake Total 3412 / 3519 2441 / 2441
Output Total 388 / 453 210 / 210
Balance 3024 / 3066 2231 / 2231
--- NOTE | 2025-06-01 14:48 | CM ---
Received CM consult for resendiz check of Eliquis 10mg bid x 7 days, then 5m bid. Cost per [facility] pharmacist would be $145.
[2025-06-01] MEDS: LASIX 20 MG PO (15:32)
[2025-06-01] MEDS: KLOR-CON 20 MEQ PO (15:34)
[2025-06-01] MEDS: INDERAL LA 60 MG PO (16:52)
[2025-06-01] MEDS: DIOVAN 160 MG PO (16:52)
[2025-06-01 16:56] LABS: Vitamin B12 944 pg/ml (239-931)
[2025-06-02] VITALS (12 sets, daily range): BP systolic 104–212; BP diastolic 55–113; BMI 22.8
--- NOTE | 2025-06-02 02:39 | PTCARENOTE ---
unable to wean pt 02 pulse ox 87% on r/a and pt HR drops lows 40s.
--- NOTE | 2025-06-02 05:13 | PTCARENOTE ---
pt has lg brown raised discolored mass measuring 6cm on left lower abd.
[2025-06-02] MEDS: DIOVAN 160 MG PO (06:07)
--- NOTE | 2025-06-02 06:10 | PTCARENOTE ---
pt manual bp elevated 160/88, notified with orders may give afternoon dose.
--- NOTE | 2025-06-02 06:25 | W.PN.ANS.POP ---
Anesthesia Post Operative
- Anesthesia Post Op Note
Vital Signs Stable-See Nursing Note: Yes
Airway Patent: Yes
Adequate Pain Control: Yes
Change in Mental Status: No
Current Postoperative Nausea & Vomiting: No
Anesthesia Complications: No
General Anesthetic Recall: No
Unplanned Admission: No
Post Op Hydration Adequate: Yes
--- NOTE | 2025-06-02 06:39 | PTCARENOTE ---
pts follow up bp 138/92 hr 56.
[2025-06-02] MEDS: VENTOLIN NEBULES 2.5 MG INH (07:06)
[2025-06-02] MEDS: ADVAIR HFA 45/21 MCG INHALER 2 PUFF INH ×2 (07:06→19:27)
[2025-06-02] MEDS: SINEMET 25-100 2 TABLET PO ×3 (07:48→17:18)
[2025-06-02] MEDS: ELIQUIS 10 MG PO ×2 (07:48→20:16)
[2025-06-02] MEDS: MAGNESIUM OXIDE 500 MG PO (07:48)
[2025-06-02] MEDS: LIDOCAINE 4% PATCH TOPICAL (09:11)
[2025-06-02 10:15] LABS: Blood Urea Nitrogen 11 mg/dl (7-17); Calcium 8.2 mg/dl (8.4-10.2); Carbon Dioxide 27 mmol/L (22-30); Chloride 110 mmol/L (98-107); Estimated Creatinine Clearance 54 ml/min; Glucose 108 mg/dl (70-99); Potassium 3.8 mmol/L (3.5-5.1); Sodium 137 mmol/L (135-145); eGFR > 60.00
--- NOTE | 2025-06-02 11:07 | W.PN.PUL3 ---
Today's Communication / Plan
-
Wean down supplemental O2 rate; check home O2 assessment prior to discharge
Increase activity as tolerated
Vascular surgery correspondence reviewed
Continue Eliquis
Recommend outpatient hematology evaluation for hypercoagulable workup
Outpatient pulmonary follow-up
Pulmonary will follow briefly
Assessment
-
89-year-old lifelong non-smoking female with a history of hypertension, essential tremors, Parkinson's, asthma and ambulatory dysfunction presented with shortness of breath found to have pulmonary emboli/extensive DVT and left lower extremity edema
evaluated by vascular surgery requiring lysis of left lower extremity extensive DVT who developed some neurologic symptoms preoperatively and went to CT head which was negative transferred to ICU prior to vascular intervention-[facility] lead consulted
for neurologic changes/PAD/eventual postoperative critical care management 05/29/2025.
Bilateral probable provoked moderate burden submassive pulmonary emboli with right ventricular strain
PESI--88, high risk, class III
DVT left lower extremity DVT
vascular lysis therapy 05/29/2025- left popliteal vein lysis catheter placement
vascular procedure 05/30/25-venogram, mechanical thrombectomy, angioplasty and stent left CIV
Leukocytosis
Mild hyperglycemia
Isolated elevation total bilirubin-2.0
DNR
Conditions present prior to admission:
Hypertension.
Essential tremor.
Parkinson's.
Asthma.
Diverticulosis
Chronic back pain
Thoracic compression fracture-T7 and T9 with mild compression fracture T8, severe compression fracture L1, moderate compression fracture L3
Ambulatory dysfunction.
Plan
Patient tolerated anticoagulation and lytic therapy
Supplemental oxygen as needed-attempt to wean while keeping SpO2 >90-94%
Aspiration precautions
Incentive spirometry encouraged
Nebulizers as needed-currently not bronchospastic
Propranolol and valsartan reinitiated on 05/31/2025
CTA chest personally reviewed--moderate clot burden with evidence for right ventricular strain
Continue loading dose of Eliquis
Echocardiogram 05/29/2025-EF 60-65%, enlarged right ventricle, normal systolic function, mild aortic stenosis, PA systolic 45-50
Lower extremity ultrasound and CT abdomen with extensive left-sided DVT/clot burden
Recommend outpatient hematology consult for hypercoagulable workup
Vascular surgery following-correspondence reviewed
Lysis of extensive left lower extremity DVT 05/29/2025-possible relook 05/30/25--venogram, mechanical thrombectomy, angioplasty and stent left CIV
DVT prophylaxis- full anticoagulation converted to Eliquis
Nutrition
Eventual PT/OT
Reviewed with son at the bedside on 06/02/25
Outpatient pulmonary follow-up ; pulmonary service will continue to to briefly follow along.
Reviewed with nursing
Diagnostic data:
Chest x-ray 05/22/2025-small horizontal band of increased density right lower lobe compatible with discoid atelectasis
CT chest 05/28/2025-bilateral acute pulmonary thromboembolism with moderate clot burden with findings of right heart strain, nodular enlargement of the right thyroid, small calcified granuloma right lung apex, chronic compression fractures
CT abdomen and pelvis 05/28/2025-deep venous thrombosis left lower extremity, left iliac veins in the IVC to just below the level of the renal veins
CT head 05/29/2025-no acute intracranial abnormalities
Lower extremity ultrasound 05/28/2025-extensive left lower extremity occlusive DVT throughout left common femoral, femoral, popliteal, peroneal and posterior tibial veins
Echocardiogram 11/25/2024-EF 60-65%, no significant valvular disease
Total time spent today was 41 minutes for this encounter. Time includes reviewing laboratory test/imaging results, reviewing pertinent medical records, obtaining and reviewing medical history, performing an appropriate exam, ordering medications,
tests and procedures. Time also includes documentation of this encounter, coordinating patient care and communicating with other healthcare professionals. Total time does not include separately billed tests performed on this date of service.
Subjective Data
-
Date of Service:
Date of Service: June 02, 2025
Chief Complaint: Pulmonary Follow Up and Dyspnea Follow Up
Subjective:
Patient was seen and evaluated today at bedside. Patient's son, Yang, present at bedside. Patient currently on Eliquis, loading dose. She still endorses shortness of breath and generally does not feel good. Currently on 1 L/min nasal cannula.
Review of Systems
General: Other (Negative unless mentioned above)
Objective Data
Data Reviewed
Vital Signs / I&O / Oxygen:
Vital Signs
Temp Pulse Resp BP Pulse Ox
97.7 F 55 22 104/55 94
06/02/25 07:00 06/02/25 10:32 06/02/25 07:08 06/02/25 10:32 06/02/25 10:32
Intake and Output
06/01/25 06/02/25 06/03/25
06:59 06:59 06:59
Intake Total 2441 / 2441 1540 / 1540
Output Total 210 / 210
Balance 2231 / 2231 1540 / 1540
SaO2 94
Nasal Cannula flow liters per 1
minute
Physical Exam
General: Respiratory Distress (n), Chills (n), Sweats (n) and Other (General malaise)
HEENT: Normocephalic, Anicteric and Moist Mucous Membranes
Cardiovascular: S1-S2, Murmur (TYREE heard at LUSB) and Peripheral Edema (+2 left lower extremity edema)
Respiratory: Wheeze (n), Crackles (n), Rhonchi (n), Accessory Resp Muscle Use (n), Stridor (n) and Other (Diminished breath sounds bilaterally)
GI: Soft, Non Distended, Non Tender and Normal Bowel Sounds
Neurology: Awake, Alert and Tremors (n)
Skin: Warm, Dry, Cyanosis (n) and Jaundice (n)
Labs/Micro/Reports
Lab Data
06/01/25 05:28
06/02/25 09:06
--- NOTE | 2025-06-02 11:56 | W.PN.HOSP.TC ---
Today's Communication/Plan
-
Repeat blood pressure stable will provide Lasix
Assessment / Plan
Assessment / Plan
89 y/o female with LLe edema. Nursing noted a mild right facial droop at 9:25 AM. Patient was seen immediately. Patient's son was not sure if there was a facial droop but since patient is on heparin drip stroke alert was called and patient was
sent to CT.
Patient was seen in the ER on 05/22/2025 for shortness of breath and was discharged on a course of prednisone. Since then she continued to have shortness of breath. Son came back from vacation and noted that she also has left lower extremity edema .
Seen earlier today Late documentation.
SOB is better.
On examination patient awake alert oriented
Cardiovascular system S1-S2 appreciated
Chest clear to auscultation decreased breath sounds
Abdomen soft and nontender
Left lower extremity edema better, color better, edema still present.
2 skin tears on dorsal left arm just above the wrist, ecchymosis-old on the inner aspect of the elbow of the left arm
Head CT-no acute changes
CT abdomen and pelvis-DVT in the left lower extremity, iliac veins, And to the IVC to just below the level of the renal veins
CT chest-positive for bilateral acute PE. Moderate clot burden secondary findings suggesting right heart strain. Mild opacity in the posterior basilar right lower lobe atelectasis versus small pulmonary infarct
EKG-normal sinus rhythm. Possible left atrial enlargement. T wave abnormality consider anterolateral ischemia
Echo 05/29/2025-EF 60 to 65%. Normal regional wall motion. Enlarged RV. Normal RV SF, Mild , mild to moderate TR, PA pressure 45 to 50 mmHg, mild ascending aortic dilatation 4 cm
# Extensive left lower extremity DVT
Status post left popliteal vein thrombolysis by vascular on 05/29/[address] Burkett
Status post mechanical thrombectomy of the inferior vena cava by Dr. Gonzalez on 05/30/2025
Edema decreased with Silas bandages and thrombolysis
Eliquis started
# Shortness of breath on 06/01/2025-chest x-ray reviewed small to moderate bilateral pleural effusions. Status post Lasix yesterday. Will provide Lasix again today as long as blood pressure was stable
# Submassive bilateral PE
PERT alert was called-no plans for thrombolysis for PE
Echo as above
Continue Eliquis
# Mild hematuria resolved
# Hypokalemia-replaced
# Questionable right facial droop noted by RN on 05/29/[address] negative for bleed
No further CVA workup pursued
# Hyperglycemia-Hemoglobin A1c 5.9
# Ascending Aortic Dilatation 4 cm
# Asthma-NOS. Continue Advair or equivalent and nebulizer treatments.
# Essential hypertension-continue Valsartan, Propranolol
# Parkinson disease-continue Sinemet
# Essential tremor-continue propranolol
# Diverticulosis
# Chronic back pain-moderate compression fractures T7 and T9, mild compression fracture of T8 ,severe compression fracture L1, moderate compression fracture L3, degenerative anterolisthesis L4 on L 5
# Ambulatory dysfunction
# DNR
Discussed with RN at bed side
I would prefer patient to go to rehab if possible. Physical therapy to evaluate
Spoke to son yesterday . In case patient needs to go to rehab son would like [place] [facility]
Anticipated Discharge: 24 - 48 hours
Subjective/Interval History
-
Date of Service: June 02, 2025
Objective Data
-
Labs:
Laboratory Results
06/02/25
09:06
Sodium 137
Potassium 3.8
Chloride 110 H
Carbon Dioxide 27
BUN 11
Creatinine 0.5 L
Glucose 108 H
Calcium 8.2 L
Vital Signs:
Vital Signs
Temp Pulse Resp BP Pulse Ox
97.7 F 55 22 104/55 94
06/02/25 07:00 06/02/25 10:32 06/02/25 07:08 06/02/25 10:32 06/02/25 10:32
I&O
06/01/25 06/02/25 06/03/25
06:59 06:59 06:59
Intake Total 2441 / 2441 1540 / 1540
Output Total 210 / 210
Balance 2231 / 2231 1540 / 1540
--- NOTE | 2025-06-02 12:49 | W.PN.UPDATE ---
Update Note
Progress Note Update
Nursing reviewed that patient's blood pressure during routine exam was 180/110 heart rate 62 patient was not in any distress mild shortness of breath. She was straining for a bowel movement prior to that.
Since blood pressure was 104/55 at 10:30 in the morning we will wait to act on this blood pressure. If it remains high we will treat it.
Recheck in 30 min to 60 min
--- NOTE | 2025-06-02 12:55 | CM ---
CM met with pt to review dc planning
She deferred planning to her son
Call with son/Yang
He provided clarification on PLOF
He notes she is able to ambulate short distances with a 1 assist
She is indep with transfers into W/C, toilet and car
Requesting SNF be arranged at [facility]
Referral sent via [facility]
Pt will require IBC auth
Reviewed with Dr Schmid, ADC 1-2 days
Discharge Disposition- SNF pending auth
[2025-06-02] MEDS: LASIX 20 MG IV (14:10)
[2025-06-02] MEDS: KCL 20 MEQ PO (14:12)
--- NOTE | 2025-06-02 15:55 | W.PN.UPDATE ---
Update Note
Progress Note Update
Patient was seen again because of blood pressure was elevated
Patient states that she felt slightly flushed but other than that no other symptoms of chest pain shortness of breath headaches nausea or vomiting or any weakness
Neuroexam nonfocal
Chest clear to auscultation
Lasix given earlier
Will give a dose of hydralazine and watch blood pressure and recheck soon.
D/W RN at bed side again
--- NOTE | 2025-06-02 16:16 | PTCARENOTE ---
pt transferred to room 2135, report given to nurse. notified Dr. Schmid about continued HTN.
[2025-06-02] MEDS: APRESOLINE 5 MG IV (16:20)
--- NOTE | 2025-06-02 16:42 | PTCARENOTE ---
Patient trasnferred from 2S. Report received from Alba CARRENO. Patients bp is 190/113. IV hydralazine ordered per . Willl administer.
[2025-06-02] MEDS: INDERAL LA 60 MG PO (17:18)
[2025-06-02] MEDS: DIOVAN 320 MG PO (17:18)
[2025-06-02] MEDS: SINEMET 25-100 PO ×2 (22:59→23:13)
[2025-06-03] VITALS (12 sets, daily range): BP systolic 105–210; BP diastolic 54–110; PULSE 64; O2SAT 93; BMI 21.2
[2025-06-03] MEDS: APRESOLINE 5 MG IV ×2 (03:32→09:12)
[2025-06-03 07:06] LABS: ALT (SGPT) 17 U/L (0-35); AST (SGOT) 45 U/L (14-36); Albumin 3.0 g/dl (3.5-5.0); Alkaline Phosphatase 92 U/L (38-126); Blood Urea Nitrogen 15 mg/dl (7-17); Calcium 8.8 mg/dl (8.4-10.2); Carbon Dioxide 31 mmol/L (22-30); Chloride 103 mmol/L (98-107); Estimated Creatinine Clearance 54 ml/min; Glucose 108 mg/dl (70-99); Magnesium 1.7 mg/dl (1.6-2.3); Potassium 3.7 mmol/L (3.5-5.1); Sodium 136 mmol/L (135-145); Total Protein 5.5 g/dl (6.3-8.2); eGFR > 60.00
[2025-06-03 07:19] LABS: Hematocrit 37.5 % (37.0-47.0); Hemoglobin 12.6 g/dL (12.0-16.0); Mean Corp Hgb Conc. 33.6 g/dL (33.0-37.0); Mean Corpuscular Volume 93.3 fL (81.0-99.0); Platelet Count 320 10^3/uL (130-400); Red Cell Dist. Width 14.6 % (11.5-14.5)
[2025-06-03] MEDS: MAGNESIUM OXIDE 500 MG PO (08:28)
[2025-06-03] MEDS: SINEMET 25-100 2 TABLET PO ×4 (08:28→21:34)
[2025-06-03] MEDS: ELIQUIS 10 MG PO ×2 (08:29→20:12)
[2025-06-03] MEDS: LASIX 20 MG IV ×2 (08:29→11:54)
[2025-06-03] MEDS: LIDOCAINE 4% PATCH TOPICAL (08:33)
[2025-06-03] MEDS: PROCARDIA XL (EXTENDED RELEASE) 30 MG PO (09:13)
[2025-06-03] MEDS: ADVAIR HFA 45/21 MCG INHALER 2 PUFF INH ×2 (09:28→19:17)
--- NOTE | 2025-06-03 10:13 | W.PN.HOSP.TC ---
Addendum entered and electronically signed by Leroy Schmid MD 06/03/25 14:44:
Spoke to son and updated. Questions answered.
Original Note:
Today's Communication/Plan
-
BP management
Cards eval.
Assessment / Plan
Assessment / Plan
89 y/o female with LLe edema. Nursing noted a mild right facial droop at 9:25 AM. Patient was seen immediately. Patient's son was not sure if there was a facial droop but since patient is on heparin drip stroke alert was called and patient was
sent to CT.
Patient was seen in the ER on 05/22/2025 for shortness of breath and was discharged on a course of prednisone. Since then she continued to have shortness of breath. Son came back from vacation and noted that she also has left lower extremity edema .
Seen earlier today Late documentation.
Other and feeling tired she has no other symptoms of chest pain, shortness of breath, headache, numbness tingling diplopia dysphagia, weakness. She sat in a chair for a good amount of time yesterday.
On examination patient awake alert oriented
Cardiovascular system S1-S2 appreciated
Chest clear to auscultation decreased breath sounds
Abdomen soft and nontender
Left lower extremity edema better, color better, mild foot leg edema much better
2 skin tears on dorsal left arm just above the wrist, ecchymosis-old on the inner aspect of the elbow of the left arm
Neuroexam-no facial droop, bilateral upper extremity and lower extremity good strength
Head CT-no acute changes
CT abdomen and pelvis-DVT in the left lower extremity, iliac veins, And to the IVC to just below the level of the renal veins
CT chest-positive for bilateral acute PE. Moderate clot burden secondary findings suggesting right heart strain. Mild opacity in the posterior basilar right lower lobe atelectasis versus small pulmonary infarct
EKG-reviewed today sinus rhythm with PVCs. T wave abnormality). Area. Inversion no longer evident in lateral leads.
Echo 05/29/2025-EF 60 to 65%. Normal regional wall motion. Enlarged RV. Normal RV SF, Mild , mild to moderate TR, PA pressure 45 to 50 mmHg, mild ascending aortic dilatation 4 cm
# Hypertensive urgency.
Unclear why blood pressure was up all of a sudden. Possibly likely secondary to PE?
Diovan increased and patient received extra hydralazine doses yesterday.
Started on nifedipine today.
Elevated proBNP noted-added Lasix again today
Cardiology to evaluate
# Extensive left lower extremity DVT
Status post left popliteal vein thrombolysis by vascular on 05/29/[address] Burkett
Status post mechanical thrombectomy of the inferior vena cava by Dr. Gonzalez on 05/30/2025
Edema decreased with Silas bandages and thrombolysis.
Silas bandages applied again today.
Eliquis started
# Shortness of breath on 06/01/2025-chest x-ray reviewed small to moderate bilateral pleural effusions. Continue IV Lasix which she received on 06/01/2025, 06/02/2025 and today which is 06/03/2025.
# Submassive bilateral PE
PERT alert was called-no plans for thrombolysis for PE
Echo as above
Continue Eliquis
# 2 skin tears on the left dorsal arm-patient states happened during CAT scan. No infection noted. Ecchymosis towards the elbow lower aspect of the upper arm-. Adaptic, gauze, Silas bandages applied again today. Skin is very thin and less elastic.
# Mild hematuria resolved
# Hypokalemia-replaced
# Questionable right facial droop noted by RN on 05/29/[address] negative for bleed
No further CVA workup pursued
# Hyperglycemia-Hemoglobin A1c 5.9
# Ascending Aortic Dilatation 4 cm
# Asthma-NOS. Continue Advair or equivalent and nebulizer treatments.
# Essential hypertension-continue Valsartan, Propranolol
# Parkinson disease-continue Sinemet
# Essential tremor-continue propranolol
# Diverticulosis
# Chronic back pain-moderate compression fractures T7 and T9, mild compression fracture of T8 ,severe compression fracture L1, moderate compression fracture L3, degenerative anterolisthesis L4 on L 5
# Ambulatory dysfunction
# DNR- Pt very clear about that, asked again today.
Discussed with RN at bed side
D/W Cards
Repeat BP around 10.30
Will update son again today
She is not ready for discharge.
Anticipated Discharge: > 48 hours
Subjective/Interval History
-
Date of Service: June 03, 2025
Objective Data
-
Labs:
Laboratory Results
06/03/25
05:57
WBC 10.7
Hgb 12.6
Hct 37.5
Plt Count 320 D
Sodium 136
Potassium 3.7
Chloride 103
Carbon Dioxide 31 H
BUN 15
Creatinine 0.6
Glucose 108 H
Calcium 8.8
Total Bilirubin 1.1
AST 45 H
ALT 17
Alkaline Phosphatase 92
Vital Signs:
Vital Signs
Temp Pulse Resp BP Pulse Ox
97.7 F 65 18 210/110 94
06/03/25 07:43 06/03/25 09:32 06/03/25 09:32 06/03/25 09:13 06/03/25 09:32
I&O
06/02/25 06/03/25 06/04/25
06:59 06:59 06:59
Intake Total 1540 / 1540 1200 / 1200
Balance 1540 / 1540 1200 / 1200
--- NOTE | 2025-06-03 10:40 | CON.CAR ---
Addendum entered and electronically signed by Kale Brown MD 06/03/25 14:52:
I saw and examined the patient.
The EDGE GLUE MACHINE TENDER's note was reviewed and I agree with the note.
Comment: The BNP seems to be reflecting RV dysfunction with pleural effusions. Treatment will focus on decongstiona and anticoagulation. Echo and CTA chest in 3 months makes sense to assure PA pressure and RV are improved and Thrombus resolved.
Original Note:
Consultation
Consultation Request
Date/Time Consultation Requested: 06/03/2025 08:45
Date/Time Consultation Performed: 06/03/2025 09:00
Requesting Provider: Dr. Schmid
Performing Provider: GOGO Morfin for Dr. Brown
Reason for Consultation: HFpEF, hypertension
Medical History
-
Chief Complaint: LE swelling, SOB
History of Present Illness:
Kerry Estevez is an 89-year-old female with hypertension, asthma, essential tremor, and osteoporosis who presented to the emergency department with a chief complaint of left lower extremity swelling and worsening shortness of breath on 05/28/2025.
She noticed the swelling about 48 hours prior to arrival. Since her admission, she was found to have an extensive left lower extremity DVT and a status post popliteal vein thrombolysis on 05/29/2025 and status post mechanical thrombectomy of the
inferior vena cava 05/30/2025. She also found to have a submassive bilateral PE. A PERT alert was called but there was no thrombolysis. She is currently on PE dosed apixaban. Cardiology was consulted today for blood pressure management, a concern
for HFpEF, pleural effusions, and elevated proBNP. She denies chest pain, shortness of breath, and dizziness.
Past Medical History
Past Medical History: Asthma, HTN and Other (Essential tremor)
Past Surgical History: Orthopedic
Social History
Tobacco: Non-Smoker
Alcohol: None
Living: Alone (with aid)
Employment: Retired
Family History
Family History: Reviewed & Not Pertinent
Allergies / Home Medications
Allergy/AdvReac Type Severity Reaction Status Date / Time
Cephalosporins Allergy Unknown Verified 05/28/25 16:32
clindamycin Allergy Unknown Verified 05/28/25 16:32
Penicillins Allergy Unknown Verified 05/28/25 16:32
�Medication �Instructions �Recorded �Confirmed �Type
carbidopa 25 mg-levodopa 100 mg 2 tab PO QID tremor #0 tabs 11/26/24 05/28/25 Rx
tablet
fluticasone 100 mcg-salmeterol 50 1 inh inhalation R BID wheezing #0 11/26/24 05/28/25 Rx
mcg/dose blistr powdr for ea
inhalation (Advair Diskus)
propranolol 60 mg capsule,24 60 mg PO QPM Blood pressure #0 caps 11/26/24 05/28/25 Rx
hr,extended release
valsartan 160 mg tablet 160 mg PO QPM Blood pressure #0 11/26/24 05/28/25 Rx
tabs
albuterol sulfate 90 mcg/actuation 2 inh inhalation R Q6HPRN PRN sob 05/28/25 05/28/25 History
breath activated powder inhaler
(ProAir RespiClick)
Review of Systems
-
History Source: Patient
All other systems: Negative unless noted
Constitutional: Fatigue
EENT: No Symptoms
Respiratory: No Symptoms
Cardiac: No Symptoms
Abdomen/GI: No Symptoms
: No Symptoms
Musculoskeletal: No Symptoms
Skin: No Symptoms
Neurological: Weakness
Endocrine: No Symptoms
Hematologic/Lymphatic: No Symptoms
Physical Exam
Vital Signs
Temp Pulse Resp BP Pulse Ox
97.7 F 65 18 210/110 94
06/03/25 07:43 06/03/25 09:32 06/03/25 09:32 06/03/25 09:13 06/03/25 09:32
Lab Results
06/03/25 05:57
06/03/25 05:57
Troponin I 0.014 ng/ml 05/29/25 10:56
Ndl-L-Bjkfhygrlyy Pept 39967 pg/ml 06/03/25 05:57
Physical Exam
General: Well Developed, Well Nourished, No Apparent Distress and Comfortable
HEENT: Normocephalic, Anicteric and Moist Mucous Membranes
Respiratory: Crackles and Non Labored Respirations
Cardiac: S1/S2, Regular Rhythm and Murmur (2/6 TYREE)
Breast: Deferred by me
GI: Soft, Non Tender, Non Distended and Normal Bowel Sounds
Rectal: Deferred by Provider
Genito-urinary: No Costovertebral Tender
Musculoskeletal: No Clubbing and No Cyanosis
Skin: Warm and Dry
Neuro: Alert
Hematologic/Lymphatic: No Lymphadenopathy
Psych: Calm
Impression / Plan
-
I/P: 89F with hypertension, asthma, essential tremor, and osteoporosis who presented to the emergency department with a chief complaint of left lower extremity swelling and worsening shortness of breath on 05/28/2025.
Outpatient supervisor tower: None
RV dysfunction
- In the setting of PE
- Continue diuresis, furosemide 20 mg IV now
Hypertensive urgency
- Improved, perhaps labile, SBP dropped 100 points within 2 hours?
- Received PRN hydralazine at 3 AM
Submassive bilateral PE, on apixaban
LLE DVT, extensive
- Status post left popliteal vein thrombolysis by Dr. Burkett 05/29/2025
- Status post mechanical thrombectomy of the inferior vena cava by Dr. Gonzalez on 05/30/2025
Aortic stenosis, mild, peak/mean gradient 15/8 mmHg, BRET 1.6 cm�
Tricuspid regurgitation, mild to moderate
Prediabetes, HgbA1c 5.9%
SUBJECTIVE:
As above.
Data Reviewed
-
EKG: Report Reviewed by me
Medical Tests (Nuc Med, Echo etc): Report Reviewed by me
Labs: Labs Reviewed by me
Old Records: Reviewed
--- NOTE | 2025-06-03 10:55 | W.PN.PUL3 ---
Today's Communication / Plan
-
Wean down supplemental O2 rate; check home O2 assessment prior to discharge
Increase activity as tolerated
Vascular surgery correspondence reviewed
Continue Eliquis
Cardiology consulted, IV Lasix started; defer additional diuresis to cardiology
Consider repeat echo as an outpatient to assure RV dilation is stable and hopefully improves, in addition to assessing stability vs improvement of PH
Recommend outpatient hematology evaluation for hypercoagulable workup
Outpatient pulmonary follow-up will be arranged
No additional recommendations at this time. Pulmonary service will now sign off. Please reconsult if there are any additional questions/concerns, or if patient's respiratory status deteriorates.
Assessment
-
89-year-old lifelong non-smoking female with a history of hypertension, essential tremors, Parkinson's, asthma and ambulatory dysfunction presented with shortness of breath found to have pulmonary emboli/extensive DVT and left lower extremity edema
evaluated by vascular surgery requiring lysis of left lower extremity extensive DVT who developed some neurologic symptoms preoperatively and went to CT head which was negative transferred to ICU prior to vascular intervention-adult care manager consulted
for neurologic changes/PAD/eventual postoperative critical care management 05/29/2025.
Bilateral probable provoked moderate burden submassive pulmonary emboli with right ventricular strain
PESI--88, high risk, class III
DVT left lower extremity
vascular lysis therapy 05/29/2025- left popliteal vein lysis catheter placement
vascular procedure 05/30/25-venogram, mechanical thrombectomy, angioplasty and stent left CIV
Leukocytosis - resolved
Mild hyperglycemia (A1c: 5.9 on 05/30/2025)
Isolated elevation total bilirubin-2.0
DNR
Conditions present prior to admission:
Hypertension.
Essential tremor.
Parkinson's.
Asthma.
Diverticulosis
Chronic back pain
Thoracic compression fracture-T7 and T9 with mild compression fracture T8, severe compression fracture L1, moderate compression fracture L3
Ambulatory dysfunction.
Plan
Patient tolerated anticoagulation and lytic therapy
Continue supplemental oxygen and attempt to wean while keeping SpO2 >90-94%
Check home O2 assessment prior to discharge
Aspiration precautions
Incentive spirometry encouraged
Nebulizers as needed-currently not bronchospastic
Continue with home medication Advair 45 mcg BID
Continue propranolol, valsartan, nifedipine
IV Lasix started for tomorrow given elevated proBNP with bilateral pleural effusions seen on CXR from 06/01/2025
CTA chest personally reviewed--moderate clot burden with evidence for right ventricular strain
Continue loading dose of Eliquis
Case management consult to assess affordability of Eliquis
Echocardiogram 05/29/2025-EF 60-65%, enlarged right ventricle, normal systolic function, mild aortic stenosis, PA systolic 45-50
Lower extremity ultrasound and CT abdomen with extensive left-sided DVT/clot burden
Recommend outpatient hematology consult for hypercoagulable workup
Vascular surgery following-correspondence reviewed
Lysis of extensive left lower extremity DVT 05/29/2025-possible relook 05/30/25--venogram, mechanical thrombectomy, angioplasty and stent left CIV
DVT prophylaxis- full anticoagulation converted to Eliquis
Nutrition
Eventual PT/OT
Reviewed with son at the bedside on 06/02/25
Outpatient pulmonary follow-up will be arranged. No additional recommendations at this time. Pulmonary service will now sign off. Thank you for allowing us to be involved in the care of this patient. Please reconsult if there are any additional
questions/concerns, or if patient's respiratory status deteriorates.
Reviewed with nursing
Diagnostic data:
Chest x-ray 05/22/2025-small horizontal band of increased density right lower lobe compatible with discoid atelectasis
CT chest 05/28/2025-bilateral acute pulmonary thromboembolism with moderate clot burden with findings of right heart strain, nodular enlargement of the right thyroid, small calcified granuloma right lung apex, chronic compression fractures
CT abdomen and pelvis 05/28/2025-deep venous thrombosis left lower extremity, left iliac veins in the IVC to just below the level of the renal veins
CT head 05/29/2025-no acute intracranial abnormalities
Lower extremity ultrasound 05/28/2025-extensive left lower extremity occlusive DVT throughout left common femoral, femoral, popliteal, peroneal and posterior tibial veins
Echocardiogram 11/25/2024-EF 60-65%, no significant valvular disease
Total time spent today was 38 minutes for this encounter. Time includes reviewing laboratory test/imaging results, reviewing pertinent medical records, obtaining and reviewing medical history, performing an appropriate exam, ordering medications,
tests and procedures. Time also includes documentation of this encounter, coordinating patient care and communicating with other healthcare professionals. Total time does not include separately billed tests performed on this date of service.
Subjective Data
-
Date of Service:
Date of Service: June 03, 2025
Chief Complaint: Pulmonary Follow Up and Dyspnea Follow Up
Subjective:
Patient was seen and evaluated this morning. She feels better than she did yesterday. Remains on 2 L/min nasal cannula. Saturating 95%. She has minimal shortness of breath at rest and is not exerting herself enough to know if she is short of
breath with activity. Afebrile overnight. Currently denies chest pain, HARRIS, nausea, fevers or chills.
Review of Systems
General: Other (Negative unless mentioned above)
Objective Data
Data Reviewed
Vital Signs / I&O / Oxygen:
Vital Signs
Temp Pulse Resp BP Pulse Ox
97.4 F 60 16 109/57 94
06/03/25 10:47 06/03/25 10:47 06/03/25 10:47 06/03/25 10:47 06/03/25 10:47
Intake and Output
06/02/25 06/03/25 06/04/25
06:59 06:59 06:59
Intake Total 1540 / 1540 1200 / 1200
Balance 1540 / 1540 1200 / 1200
SaO2 94
Nasal Cannula flow liters per 2
minute
Physical Exam
General: Respiratory Distress (n), Comfortable, Chills (n), Sweats (n) and Other (General malaise)
HEENT: Normocephalic, Anicteric and Moist Mucous Membranes
Cardiovascular: S1-S2, Murmur (TYREE heard at LUSB) and Peripheral Edema (negative)
Respiratory: Clear, Wheeze (n), Crackles (n), Rhonchi (n), Accessory Resp Muscle Use (n), Stridor (n) and Other (Diminished breath sounds bilaterally)
GI: Soft, Non Distended, Non Tender and Normal Bowel Sounds
Neurology: Awake, Alert and Tremors (n)
Skin: Warm, Dry, Cyanosis (n), Jaundice (n) and Other (Bandage along left upper extremity)
Labs/Micro/Reports
Lab Data
06/03/25 05:57
06/03/25 05:57
[2025-06-03] MEDS: KCL 20 MEQ PO (10:58)
--- NOTE | 2025-06-03 15:52 | PTCARENOTE ---
Manual BP this AM 210/110 RUE taken by this RN, patient NSR on tele monitor, states no complaints other than occasional SOB, POX stable on 2L. made aware, one time doses of IV hydralazine and IV lasix ordered per MD and administered by this RN -
see JAN. Repeat automatic BP taken by tech one hour later 109/57 RUE HR 60, patient stating no complaints. PRN IV hydralazine, scheduled PO nifedipine and one time dose of 20 meq PO KCl added per MD, EKG obtained by tech per MD order, cardio consult
in place. Patient heavily incontinent of urine throughout shift, soap and water bath provided, OOB to chair with x1-2 assist, PT/OT following. LUE skin tear dressing changed this AM per , LLE JULIEN wrap in place. +pulses, neurochecks MD RUTHANN stated
okay to [facility]. Patient OOB to chair ringing appropriately.
--- NOTE | 2025-06-03 15:52 | CM ---
Reviewed the chart notes. Referral previously sent to [facility] via [facility]. Accept based on bed availability at time of discharge. Auth will be required. CM continues to be available to patient/family and is monitoring medical plan for needs at
discharge.
Plan: Discharge to SNF (hopefully [facility]) when medically stable and auth obtained.
[2025-06-03] MEDS: INDERAL LA 60 MG PO (17:12)
[2025-06-03] MEDS: DIOVAN 320 MG PO (17:13)
[2025-06-03] MEDS: VENTOLIN NEBULES 2.5 MG INH (19:17)
[2025-06-04] VITALS (8 sets, daily range): BP systolic 106–188; BP diastolic 49–92; BMI 20.1
[2025-06-04 06:55] LABS: Hematocrit 34.7 % (37.0-47.0); Hemoglobin 11.8 g/dL (12.0-16.0); Mean Corp Hgb Conc. 34.0 g/dL (33.0-37.0); Mean Corpuscular Volume 93.0 fL (81.0-99.0); Platelet Count 288 10^3/uL (130-400); Red Cell Dist. Width 15.2 % (11.5-14.5)
[2025-06-04 07:29] LABS: Blood Urea Nitrogen 18 mg/dl (7-17); Calcium 8.6 mg/dl (8.4-10.2); Carbon Dioxide 33 mmol/L (22-30); Chloride 104 mmol/L (98-107); Estimated Creatinine Clearance 53 ml/min; Glucose 93 mg/dl (70-99); Magnesium 1.9 mg/dl (1.6-2.3); Potassium 3.8 mmol/L (3.5-5.1); Sodium 136 mmol/L (135-145); eGFR > 60.00
[2025-06-04] MEDS: ADVAIR HFA 45/21 MCG INHALER 2 PUFF INH ×2 (07:42→20:26)
--- NOTE | 2025-06-04 08:16 | W.PN.CD ---
Today's Communication / Plan
-
no need for further diuresis
would recommend echo at 3 months
no further cardiac recommendations
I will sign off
Impression / Plan
-
I/P: 89F with hypertension, asthma, essential tremor, and osteoporosis who presented to the emergency department with a chief complaint of left lower extremity swelling and worsening shortness of breath on 05/28/2025.
Outpatient fighting vehicle infantryman: None
RV dysfunction
- In the setting of PE
- Impressive diuresis with furosemide 20 mg IV
-no need for further diuresis at this time
-repeat echo at 3 months to establish improvement
Hypertensive urgency
- Improved, perhaps labile, SBP dropped 100 points within 2 hours?
- Received PRN hydralazine at 3 AM
-ARB increased, continue to monitor
Submassive bilateral PE, on apixaban
LLE DVT, extensive
- Status post left popliteal vein thrombolysis by Dr. Burkett 05/29/2025
- Status post mechanical thrombectomy of the inferior vena cava by Dr. Gonzalez on 05/30/2025
Aortic stenosis, mild, peak/mean gradient 15/8 mmHg, BRET 1.6 cm�
Tricuspid regurgitation, mild to moderate
Prediabetes, HgbA1c 5.9%
SUBJECTIVE:
she is feeling better
TTE: 05/29/25:
CONCLUSIONS
-Left ventricular ejection fraction is 60-65%, by visual assessment. Normal
regional wall motion.
-Enlarged right ventricular size. Normal right ventricular systolic function.
-Mild aortic stenosis; peak/mean gradients 15/8 mmHg, calculated BRET 1.6 cm2.
-Mild to moderate tricuspid regurgitation. Estimated pulmonary artery pressure
of 45-50 mmHg.
-Mild ascending aorta dilatation (4.0 cm).
-
Compared to previous echo on 11/25/2024, the right ventricle is now enlarged,
but right ventricular function is preserved. Mild aortic stenosis is now
noted. Slightly progressive tricuspid regurgitation is noted. PASP has
increased (previously 25-30 mmHg).
Physical Exam
Vital Signs/Labs
Vital Signs
Temp Pulse Resp BP Pulse Ox
97.7 F 60 16 149/80 97
06/04/25 03:43 06/04/25 07:44 06/04/25 07:44 06/04/25 03:43 06/04/25 03:43
06/03/25 06/04/25 06/05/25
06:59 06:59 06:59
Actual Weight 119 lb 11.2 oz 113 lb 9.6 oz
06/04/25 06:17
06/04/25 06:17
PT Cancelled 05/30/25 18:15
INR Cancelled 05/30/25 18:15
APTT Cancelled 05/31/25 14:00
Magnesium 1.9 mg/dl (1.6-2.3) 06/04/25 06:17
05/29/25 05/29/25 06/03/25
09:40 10:56 05:57
Ygr-V-Ahzejtfkxnd Pept Cancelled [id number]
Physical Exam
Constitutional: No acute distress and Comfortable
Cardiovascular: Rhythm & rate is regular, Systolic murmur absent, Diastolic murmur absent and Pedal edema present (trace bl)
Respiratory: Respiratory effort normal, Lungs clear to auscul., Wheeze Absent, Crackles Absent and Rhonchi Absent
Neuro/Psych: AO x 3
Data Reviewed
-
Date of Service: June 04, 2025
Medical Decision Making: Review of Case with other Provider (Dr Schmid no further diuresis no new recommendations)
[2025-06-04] MEDS: PROCARDIA XL (EXTENDED RELEASE) 30 MG PO (08:55)
[2025-06-04] MEDS: SINEMET 25-100 2 TABLET PO ×4 (08:58→22:11)
[2025-06-04] MEDS: LASIX 20 MG IV (08:58)
[2025-06-04] MEDS: ELIQUIS 10 MG PO ×2 (08:58→22:11)
[2025-06-04] MEDS: MAGNESIUM OXIDE 500 MG PO (08:58)
[2025-06-04] MEDS: LIDOCAINE 4% PATCH TOPICAL (08:59)
[2025-06-04] MEDS: APRESOLINE 5 MG IV (09:35)
--- NOTE | 2025-06-04 13:24 | W.PN.HOSP.TC ---
Today's Communication/Plan
-
Watch blood pressure, if controlled within the next 24 hours patient can be discharged to rehab tomorrow.
Assessment / Plan
Assessment / Plan
89 y/o female with LLe edema. Nursing noted a mild right facial droop at 9:25 AM. Patient was seen immediately. Patient's son was not sure if there was a facial droop but since patient is on heparin drip stroke alert was called and patient was
sent to CT.
Patient was seen in the ER on 05/22/2025 for shortness of breath and was discharged on a course of prednisone. Since then she continued to have shortness of breath. Son came back from vacation and noted that she also has left lower extremity edema .
Seen earlier today Late documentation.
Patient was sitting in the chair. She feels really good
On examination patient awake alert oriented
Cardiovascular system S1-S2 appreciated
Chest clear to auscultation decreased breath sounds
Abdomen soft and nontender
Left lower extremity edema better, color better, mild foot leg edema much better
2 skin tears on dorsal left arm just above the wrist, ecchymosis-old on the inner aspect of the elbow of the left arm
Neuroexam-no facial droop, bilateral upper extremity and lower extremity good strength
Head CT-no acute changes
CT abdomen and pelvis-DVT in the left lower extremity, iliac veins, And to the IVC to just below the level of the renal veins
CT chest-positive for bilateral acute PE. Moderate clot burden secondary findings suggesting right heart strain. Mild opacity in the posterior basilar right lower lobe atelectasis versus small pulmonary infarct
EKG-reviewed today sinus rhythm with PVCs. T wave abnormality). Area. Inversion no longer evident in lateral leads.
Echo 05/29/2025-EF 60 to 65%. Normal regional wall motion. Enlarged RV. Normal RV SF, Mild , mild to moderate TR, PA pressure 45 to 50 mmHg, mild ascending aortic dilatation 4 cm
Chest x-ray 06/04/2025-pleural effusions decreased atelectasis. No pulmonary edema
# Hypertensive urgency.
Unclear why blood pressure was up all of a sudden. Possibly likely secondary to PE?
Diovan increased on 06/02/2025, continue propranolol. Nifedipine 30 mg added on 06/03/2025
Continue as needed hydralazine
Watch blood pressure. 1 reading was high today
# Extensive left lower extremity DVT
Status post left popliteal vein thrombolysis by vascular on 05/29/[address] Burkett
Status post mechanical thrombectomy of the inferior vena cava by Dr. Gonzalez on 05/30/2025
Edema decreased with Silas bandages and thrombolysis.
Silas bandages applied again today.
Eliquis started
# Acute hypoxic respiratory insufficiency multifactorial
Shortness of breath on 06/01/2025-chest x-ray reviewed small to moderate bilateral pleural effusions. Likely RV dysfunction and hypertension plus patient was given IV fluids led up to this. Continue IV Lasix which she received on 06/01/2025 through
06/04/2025. No further Lasix recommended per cardiology
# Submassive bilateral PE
PERT alert was called-no plans for thrombolysis for PE
Echo as above
Continue Eliquis
# 2 skin tears on the left dorsal arm-patient states happened during CAT scan. No infection noted. Ecchymosis towards the elbow lower aspect of the upper arm-. Adaptic, gauze, Silas bandages applied again today. Skin is very thin and less elastic.
# Mild hematuria resolved
# Hypokalemia-replaced
# Questionable right facial droop noted by RN on 05/29/[address] negative for bleed
No further CVA workup pursued
# Hyperglycemia-Hemoglobin A1c 5.9
# Ascending Aortic Dilatation 4 cm
# Asthma-NOS. Continue Advair or equivalent and nebulizer treatments.
# Parkinson disease-continue Sinemet
# Essential tremor-continue propranolol
# Diverticulosis
# Chronic back pain-moderate compression fractures T7 and T9, mild compression fracture of T8 ,severe compression fracture L1, moderate compression fracture L3, degenerative anterolisthesis L4 on L 5
# Ambulatory dysfunction
# DNR- Pt very clear about that, asked again today.
Discussed with RN at bed side
D/W Cards
Discussed with son at bedside. All questions answered
Discussed with case management
Time spent over 50 minutes
Anticipated Discharge: Within 24 hours
Subjective/Interval History
-
Date of Service: June 04, 2025
Objective Data
-
Labs:
Laboratory Results
06/04/25
06:17
WBC 9.0
Hgb 11.8 L
Hct 34.7 L
Plt Count 288
Sodium 136
Potassium 3.8
Chloride 104
Carbon Dioxide 33 H
BUN 18 H
Creatinine 0.6
Glucose 93
Calcium 8.6
Vital Signs:
Vital Signs
Temp Pulse Resp BP Pulse Ox
97.9 F 61 16 109/49 94
06/04/25 11:19 06/04/25 11:19 06/04/25 11:19 06/04/25 11:19 06/04/25 11:36
I&O
06/03/25 06/04/25 06/05/25
06:59 06:59 06:59
Intake Total 1200 / 1200 960 / 960
Balance 1200 / 1200 960 / 960
--- NOTE | 2025-06-04 13:51 | PN.CDI ---
Addendum entered and electronically signed by Leroy Schmid MD 06/04/25 17:47:
Documentation is complete at this time.
Original Note:
CDI
- -
CDI:
Physician Documentation Request
Admit Date: 05/28/25 21:17
Dear Doctor Sharmaine,
Please review the following and provide your response in the progress notes.
Clinical Indicators:
Pt admitted with Submassive PE/DVT s/p Thrombectomy angioplasty with stent 05/30
Pt care note 05/30 @ 2124, ' Pt on 1L NC O2 sat 94%, tachypneic, lungs diminished...'
Pt care note 05/31 @ 0756,' Pt on 2L NC O2 sat 95%, tachypneic, lungs diminished....'
Pulmonology note 06/02, ' She still endorses shortness of breath and generally does not feel good. Currently on 1 L/min nasal cannula....'
Pulmonology note 06/03, ' Wean down supplemental O2 rate; check home O2 assessment prior to discharge..Remains on 2 L/min nasal cannula. Saturating 95%. She has minimal shortness of breath at rest and is not exerting herself enough to know if she
is short of breath with activity....'
Pt care note 06/02 @ 0239, ' unable to wean pt 02 pulse ox 87% on r/a ...'
Pt currently on 2 LPM
05/29/25
10:57 05/29/25
15:01 05/29/25
16:00
Resp Rate 34
Nasal Cannula flow liters per minute 2 4
05/29/25
17:00 05/29/25
21:15 05/29/25
22:15
Resp Rate 33 30
05/30/25
07:44 05/30/25
08:07 05/30/25
11:01
Resp Rate 32
Nasal Cannula flow liters per minute 3 2
05/30/25
20:59 05/30/25
21:00 05/31/25
08:00
Resp Rate 32
Nasal Cannula flow liters per minute 1 2
05/31/25
20:25 06/01/25
07:36 06/02/25
07:00
Nasal Cannula flow liters per minute 1 1 2
06/02/25
07:08 06/04/25
01:35 06/04/25
11:36
Nasal Cannula flow liters per minute 1 2 2
Clarify which of the following accurately represents the patient's respiratory status following surgery:
Acute pulmonary insufficiency (following surgery)
Acute Hypoxic Respiratory Failure
Other ( please specify)
Additional information for Pulmonary Insufficiency:
Consider when patients require keno terminal operator oxygen therapy postoperatively
Weaned off oxygen initially then requiring supplemental oxygen
No other definitive diagnosis to support the need for oxygen (COPD exac, CHF etc.)
Unable to wean from vent
When criteria for respiratory failure not present
May extend stay or require additional resources; may need home O2
Additional information for Respiratory Failure:
Recognized criteria for Respiratory Failure (Source: [facility] Hospitalist Sep 2013)
ABGs: (1 or more) Symptoms Indicate:
1. p)2 <60 or RA SPO2 <91% on RA 1. Tachypnea, SOB, dyspnea 1. Type as:
2. pCO2 50 and pH <7.35 2. Use of accessory muscles a. Hypoxic
3. pO2 decrease of pCO2 increase by 3. Pallor or cyanosis b. Hypercapnic
10 mmHg from baseline if known 4. Anxiety or restlessness 2. If due to procedure or due to another cause
5. Unable to speak in full sentences
Use of terms such as suspected, likely, concern for, or probable (associated with a specific diagnosis that is being evaluated, monitored, or treated as if it exists) are acceptable and can be coded in the inpatient setting, when documented at the
time of discharge.
Thank you,
Aury Fuller RN
CDI Specialist
[place] [facility]
Please use your independent medical judgment in providing your response.
--- NOTE | 2025-06-04 13:58 | PN.CDI ---
Addendum entered and electronically signed by Leroy Schmid MD 06/04/25 17:45:
Documentation is complete at this time.
Original Note:
CDI
- -
CDI:
Physician Documentation Request
Admit Date: 05/28/25 21:17
Dear Doctor Sharmaine ,
Please review the following and provide your response in the progress notes.
Clinical Indicators:
Pt admitted with Submassive PE/DVT s/p Thrombectomy angioplasty with stent 05/30
Progress note 06/03, ' # Shortness of breath on 06/01/2025-chest x-ray reviewed small to moderate bilateral pleural effusions. Continue IV Lasix which she received on 06/01/2025, 06/02/2025 and today which is 06/03/2025....'
Cardiology consult, ' The BNP seems to be reflecting RV dysfunction with pleural effusions....Cardiology was consulted today for blood pressure management, a concern for HFpEF, pleural effusions, and elevated proBNP...RV dysfunction
In the setting of PE Continue diuresis, furosemide 20 mg IV now....'
BNP 58040 ( 06/03)
Please provide a diagnosis for the above findings/IV Lasix use:
Acute Diastolic CHF
Acute Cor pulmonale
Other ( please specify )
Use of terms such as suspected, likely, concern for, or probable (associated with a specific diagnosis that is being evaluated, monitored, or treated as if it exists) are acceptable and can be coded in the inpatient setting, when documented at the
time of discharge.
Thank you,
Aury Fuller RN
CDI Specialist
[place] [facility]
Please use your independent medical judgment in providing your response.
--- NOTE | 2025-06-04 15:44 | CM ---
Reviewed the chart notes. Patient continues with supplemental O2. CM continues to be available to patient/family and is monitoring medical plan for needs at discharge.
Plan: SNF rehab once medically stable. Auth will be required. Will need updated PT notes OT saw today.
[2025-06-04] MEDS: INDERAL LA 60 MG PO (17:10)
[2025-06-04] MEDS: DIOVAN PO (17:10)
--- NOTE | 2025-06-04 18:14 | PTCARENOTE ---
Patient OOB to chair for majority of shift, assist x2 stand and pivot, heavily inc of urine, sacrum foam placed overnight intact, heel foams intact. JULIEN wraps to LLE and LUE replaced this AM per MD, skin assessed, skin tear on LUE dressing changed,
L elbow bruised with +2-3 edema, MD aware. Patient states improvement in breathing, trialed on RA, 87%, 2L reapplied with improvement to 91%. IV Lasix DCed per cardio. Soap and water bath provided this afternoon. Patient in chair at this time,
ringing appropriately.
[2025-06-05] VITALS (7 sets, daily range): BP systolic 124–162; BP diastolic 63–88; PULSE 57; O2SAT 97; BMI 20.6
[2025-06-05] MEDS: ADVAIR HFA 45/21 MCG INHALER 2 PUFF INH ×2 (07:28→21:44)
[2025-06-05] MEDS: LIDOCAINE 4% PATCH 1 PATCH TOPICAL (07:59)
[2025-06-05] MEDS: SINEMET 25-100 2 TABLET PO ×4 (07:59→21:29)
[2025-06-05] MEDS: ELIQUIS 10 MG PO ×2 (08:00→21:29)
[2025-06-05] MEDS: PROCARDIA XL (EXTENDED RELEASE) 30 MG PO (08:00)
[2025-06-05] MEDS: MAGNESIUM OXIDE 500 MG PO (08:00)
--- NOTE | 2025-06-05 08:56 | W.PN.HOSP.TC ---
Today's Communication/Plan
-
check UA
follow BP
based on BP and update on UA, potential dc next 24 hrs, CM made aware
Assessment / Plan
Assessment / Plan
89 y/o female with LLe edema. Nursing noted a mild right facial droop at 9:25 AM. Patient was seen immediately. Patient's son was not sure if there was a facial droop but since patient is on heparin drip stroke alert was called and patient was
sent to CT.
Patient was seen in the ER on 05/22/2025 for shortness of breath and was discharged on a course of prednisone. Since then she continued to have shortness of breath. Son came back from vacation and noted that she also has left lower extremity edema
Head CT-no acute changes
CT abdomen and pelvis-DVT in the left lower extremity, iliac veins, And to the IVC to just below the level of the renal veins
CT chest-positive for bilateral acute PE. Moderate clot burden secondary findings suggesting right heart strain. Mild opacity in the posterior basilar right lower lobe atelectasis versus small pulmonary infarct
EKG-06/03 sinus rhythm with PVCs. T wave abnormality). Area. Inversion no longer evident in lateral leads.
Echo 05/29/2025-EF 60 to 65%. Normal regional wall motion. Enlarged RV. Normal RV SF, Mild , mild to moderate TR, PA pressure 45 to 50 mmHg, mild ascending aortic dilatation 4 cm
Chest x-ray 06/04/2025-pleural effusions decreased atelectasis. No pulmonary edema
# Hypertensive urgency.
Unclear why blood pressure was up all of a sudden. Possibly likely secondary to PE?
Diovan increased on 06/02/2025, continue propranolol. Nifedipine 30 mg added on 06/03/2025
Continue as needed hydralazine
Watch blood pressure.
BP this morning 143/88, 0n 06/04 very labile 106/52-188/92
Pt with Parkinsonism, possible correlation
# Extensive left lower extremity DVT
Status post left popliteal vein thrombolysis by vascular on 05/29/[address] Burkett
Status post mechanical thrombectomy of the inferior vena cava by Dr. Gonzalez on 05/30/2025
Edema decreased with Silas bandages and thrombolysis.
Silas bandages applied again today.
Eliquis continued
# Acute hypoxic respiratory insufficiency multifactorial
Shortness of breath on 06/01/2025-chest x-ray reviewed small to moderate bilateral pleural effusions. Likely RV dysfunction and hypertension plus patient was given IV fluids led up to this. Stopped IV Lasix which she received on 06/01/2025 through
06/04/2025. No further Lasix recommended per cardiology
# Submassive bilateral PE
PERT alert was called-no plans for thrombolysis for PE
Echo as above
Continue Eliquis 10 mg bid through 06/06 PM dose, then transition to 5 mg bid
# 2 skin tears on the left dorsal arm-patient states happened during CAT scan. No infection noted. Ecchymosis towards the elbow lower aspect of the upper arm-. Adaptic, gauze, Silas bandages applied again today. Skin is very thin and less elastic.
# Mild hematuria resolved
# Hypokalemia-replaced
# Questionable right facial droop noted by RN on 05/29/[address] negative for bleed
No further CVA workup pursued
# Hyperglycemia-Hemoglobin A1c 5.9
# Ascending Aortic Dilatation 4 cm
# Asthma-NOS. Continue Advair or equivalent and nebulizer treatments.
# Parkinson disease-continue Sinemet
# Essential tremor-continue propranolol
# Diverticulosis
# Chronic back pain-moderate compression fractures T7 and T9, mild compression fracture of T8 ,severe compression fracture L1, moderate compression fracture L3, degenerative anterolisthesis L4 on L 5
# Ambulatory dysfunction
#Pt reports freq urination, possibly related to decrease in edema, but will check UA
# DNR- Pt very clear about that, asked again today.
Discussed with RN at bed side
reviewed with son Yang by phone
Cards has signed off
total time 55 minutes
Anticipated Discharge: 24 - 48 hours
Subjective/Interval History
-
Date of Service: June 05, 2025
Remains very weak
Objective Data
-
Vital Signs:
Vital Signs
Temp Pulse Resp BP Pulse Ox
97.7 F 63 16 143/88 96
06/05/25 08:15 06/05/25 08:15 06/05/25 08:15 06/05/25 08:15 06/05/25 08:15
I&O
06/04/25 06/05/25 06/06/25
06:59 06:59 06:59
Intake Total 960 / 960 720 / 720
Balance 960 / 960 720 / 720
Review of Systems
-
History Source: Patient and Coordinated Provider
Constitutional: Denies Fever
EENT: Reports No Symptoms Reported
Respiratory: Reports No Symptoms
Cardiac: Reports No Symptoms; Denies Chest Pain
Genitourinary: Reports Frequency
Musculoskeletal: Reports Myalgias (left arm pain)
Neuro: Reports Weakness
Physical Exam
-
General: Well Developed, Well Nourished, No Apparent Distress and Appears Chronically Ill
HEENT: Normocephalic, Atraumatic and Moist Mucous Membranes
Respiratory: Clear to Auscultation; Negative Wheezes, Rales or Rhonchi
Cardiac: Regular Rhythm and S1/S2
GI: Soft, Nontender and Nondistended
Musculoskeletal: No Clubbing, No Cyanosis and Edema, Left Lower Extrem (left foot with silas bandage, trace edema)
Neuro: Awake, Alert, Oriented and Tremors (cogwheel changes noted)
--- NOTE | 2025-06-05 11:30 | WOUNDNOTE ---
KHALIDA RN note: Patient admitted with pulmonary embolism and DVT.
See H&P for complete history.
PMH: Patient is an 89 y/o female past medical history of hypertension, asthma, essential tremor, Parkinson disease, sacral/thoracic compression fractures and chronic ambulatory dysfunction who presents with increasing shortness of breath and left
lower extremity edema.
Wound Location and type/assessment: Asked to see patient for new blisters on B/L upper buttocks. S/P venogram and thrombolysis of clot in L lower leg by Dr. Burkett. Both upper buttocks have small intact shafer blisters. After cleaning, residual shafer
blister remains on L side. R buttock with pink base. Patient states she has multiple skin tears and feels it may be from tape pulling at skin. Suspect either that or reaction to sacral silicone foam, removed upon assessment. Heel foams applied by
nursing, heels intact.
Appetite: Fair, encouraged protein in diet.
Pressure redistribution devices in place: On [facility] air bed, turns with assist. Has air chair cushion in use. Instructed patient to take air chair cushion upon discharge. Pressure ulcer prevention measures reviewed with patient.
Plan: L upper buttock applied smear of honey gel, adaptic, 2x2 gauze and smaller non adherent silicone foam. Small silicone foam applied to R buttock. Offloading measures. Will confirm orders with hospitalist and updated nurse.
Updated care plan and will follow as needed.
Note to case management of equipment requested for discharge:
Recommend follow up at wound care center upon discharge.
[2025-06-05] MEDS: INDERAL LA 60 MG PO (17:43)
[2025-06-05] MEDS: DIOVAN 320 MG PO (17:43)
[2025-06-05 21:44] LABS: Glucose - Point of Care 98 mg/dl (70-99)
[2025-06-06 06:00] VITALS: BMI 20.4
[2025-06-06 06:46] LABS: Hematocrit 33.0 % (37.0-47.0); Hemoglobin 10.9 g/dL (12.0-16.0); Mean Corp Hgb Conc. 33.0 g/dL (33.0-37.0); Mean Corpuscular Volume 95.1 fL (81.0-99.0); Nucleated Red Blood Cells % 0.3 %; Platelet Count 305 10^3/uL (130-400); Red Cell Dist. Width 15.7 % (11.5-14.5)
[2025-06-06 07:09] LABS: Blood Urea Nitrogen 22 mg/dl (7-17); Calcium 8.4 mg/dl (8.4-10.2); Carbon Dioxide 31 mmol/L (22-30); Chloride 107 mmol/L (98-107); Estimated Creatinine Clearance 53 ml/min; Glucose 86 mg/dl (70-99); Potassium 4.2 mmol/L (3.5-5.1); Sodium 138 mmol/L (135-145); eGFR > 60.00
[2025-06-06 07:25] VITALS: BP 199/96
[2025-06-06] MEDS: ADVAIR HFA 45/21 MCG INHALER 2 PUFF INH ×2 (08:50→20:02)
--- NOTE | 2025-06-06 09:03 | CM ---
Addendum entered by Bettina Cross RN 06/06/25 16:05:
IMM on chart.
Original Note:
Auth received for patient to go to [facility].
06/06-06/10; NRD 06/10 call to [phone]; Auth # [id number]
Ambulance Auth # [id number]
Plan: Discharge to [facility] when medically stable.
Call report to: [phone]
Fax report to: [phone]
Medical necessity and transport forms on chart.
[2025-06-06] MEDS: MAGNESIUM OXIDE 500 MG PO (09:39)
[2025-06-06] MEDS: SINEMET 25-100 2 TABLET PO ×4 (09:39→21:03)
[2025-06-06] MEDS: ELIQUIS 10 MG PO ×2 (09:39→21:01)
[2025-06-06] MEDS: LIDOCAINE 4% PATCH TOPICAL ×2 (09:40→10:44)
[2025-06-06] MEDS: PROCARDIA XL (EXTENDED RELEASE) 30 MG PO (09:45)
[2025-06-06 09:53] LABS: Urine Character Clear (Clear)
[2025-06-06 10:04] LABS: Urine Red Blood Cell 0-2 /HPF (0-2); Urine Squamous Cell 16-20 /LPF (Few); Urine White Cell 0-2 /HPF (0-5)
[2025-06-06 11:05] VITALS: BP 142/73
[2025-06-06 14:52] VITALS: BP 113/54; PULSE 60; O2SAT 96
[2025-06-06 15:25] VITALS: BP 116/49
[2025-06-06] MEDS: INDERAL LA 60 MG PO (16:22)
[2025-06-06] MEDS: DIOVAN PO (16:23)
--- NOTE | 2025-06-06 18:00 | W.PN.HOSP.TC ---
Today's Communication/Plan
-
dc tomorrow
decrease Eliquis to 5 mg bid starting tomorrow
Assessment / Plan
Assessment / Plan
89 y/o female with LLe edema. Nursing noted a mild right facial droop at 9:25 AM. Patient was seen immediately. Patient's son was not sure if there was a facial droop but since patient is on heparin drip stroke alert was called and patient was
sent to CT.
Patient was seen in the ER on 05/22/2025 for shortness of breath and was discharged on a course of prednisone. Since then she continued to have shortness of breath. Son came back from vacation and noted that she also has left lower extremity edema
Head CT-no acute changes
CT abdomen and pelvis-DVT in the left lower extremity, iliac veins, And to the IVC to just below the level of the renal veins
CT chest-positive for bilateral acute PE. Moderate clot burden secondary findings suggesting right heart strain. Mild opacity in the posterior basilar right lower lobe atelectasis versus small pulmonary infarct
EKG-06/03 sinus rhythm with PVCs. T wave abnormality). Area. Inversion no longer evident in lateral leads.
EKG 06/06: SINUS BRADYCARDIA
T WAVE ABNORMALITY, CONSIDER INFERIOR ISCHEMIA
T WAVE ABNORMALITY, CONSIDER ANTEROLATERAL ISCHEMIA
ABNORMAL ECG
WHEN COMPARED WITH ECG OF 03-JUN-2025 09:04,
PREMATURE VENTRICULAR COMPLEXES ARE NO LONGER PRESENT
Echo 05/29/2025-EF 60 to 65%. Normal regional wall motion. Enlarged RV. Normal RV SF, Mild , mild to moderate TR, PA pressure 45 to 50 mmHg, mild ascending aortic dilatation 4 cm
Chest x-ray 06/04/2025-pleural effusions decreased atelectasis. No pulmonary edema
# Hypertensive urgency.
Unclear why blood pressure was up all of a sudden. Possibly likely secondary to PE?
Diovan increased on 06/02/2025, continue propranolol. Nifedipine 30 mg added on 06/03/2025
Continue as needed hydralazine
Watch blood pressure.
BP most recently 116/49
Pt with Parkinsonism, possible correlation
# Extensive left lower extremity DVT
Status post left popliteal vein thrombolysis by vascular on 05/29/[address] Burkett
Status post mechanical thrombectomy of the inferior vena cava by Dr. Gonzalez on 05/30/2025
Edema decreased with Silas bandages and thrombolysis.
Silas bandages applied again today.
Eliquis continued
# Acute hypoxic respiratory insufficiency multifactorial
Shortness of breath on 06/01/2025-chest x-ray reviewed small to moderate bilateral pleural effusions. Likely RV dysfunction and hypertension plus patient was given IV fluids led up to this. Stopped IV Lasix which she received on 06/01/2025 through
06/04/2025. No further Lasix recommended per cardiology
# Submassive bilateral PE
PERT alert was called-no plans for thrombolysis for PE
Echo as above
Continue Eliquis 10 mg bid through 06/06 PM dose, then transition to 5 mg bid
# 2 skin tears on the left dorsal arm-patient states happened during CAT scan. No infection noted. Ecchymosis towards the elbow lower aspect of the upper arm-. Adaptic, gauze, Silas bandages applied again today. Skin is very thin and less elastic.
# Mild hematuria resolved
# Hypokalemia-replaced
# Questionable right facial droop noted by RN on 05/29/[address] negative for bleed
No further CVA workup pursued
# Hyperglycemia-Hemoglobin A1c 5.9
# Ascending Aortic Dilatation 4 cm
# Asthma-NOS. Continue Advair or equivalent and nebulizer treatments.
# Parkinson disease-continue Sinemet
# Essential tremor-continue propranolol
# Diverticulosis
# Chronic back pain-moderate compression fractures T7 and T9, mild compression fracture of T8 ,severe compression fracture L1, moderate compression fracture L3, degenerative anterolisthesis L4 on L 5
# Ambulatory dysfunction
#Pt reports freq urination, possibly related to decrease in edema, checked UA, not consistent with new UTI
# DNR- Pt very clear about that, asked again today.
Discussed with RN at bed side
reviewed with son Yang by phone 06/05, 06/06
Cards has signed off
Was considering dc patient today to [facility], but with chest pain and pt feeling washed out following, she requested hold off for 1 more day, which was reasonable
total time 55 minutes
Assuming no chest pain over next 24 will plan to dc tomorrow to [facility]
Anticipated Discharge: Within 24 hours
Subjective/Interval History
-
Date of Service: June 06, 2025
Pt with inferior to sternum chest pain earlier today, resolved
Objective Data
-
Labs:
Laboratory Results
06/06/25
06:33
WBC 7.6
Hgb 10.9 L
Hct 33.0 L
Plt Count 305
Sodium 138
Potassium 4.2
Chloride 107
Carbon Dioxide 31 H
BUN 22 H
Creatinine 0.6
Glucose 86
Calcium 8.4
Vital Signs:
Vital Signs
Temp Pulse Resp BP Pulse Ox
97.5 F 66 18 116/49 95
06/06/25 15:25 06/06/25 16:23 06/06/25 15:25 06/06/25 16:23 06/06/25 15:57
I&O
06/05/25 06/06/25 06/07/25
06:59 06:59 06:59
Intake Total 720 / 720 440 / 440
Balance 720 / 720 440 / 440
Review of Systems
-
History Source: Patient and Coordinated Provider
Constitutional: Denies Fever
EENT: Reports No Symptoms Reported
Respiratory: Reports No Symptoms
Cardiac: Reports No Symptoms; Denies Chest Pain
Genitourinary: Reports Frequency
Musculoskeletal: Reports Myalgias (left arm pain)
Neuro: Reports Weakness
Physical Exam
-
General: Well Developed, Well Nourished, No Apparent Distress and Appears Chronically Ill
HEENT: Normocephalic, Atraumatic and Moist Mucous Membranes
Respiratory: Clear to Auscultation; Negative Wheezes, Rales or Rhonchi
Cardiac: Regular Rhythm and S1/S2
GI: Soft, Nontender and Nondistended
Musculoskeletal: No Clubbing, No Cyanosis and Edema, Left Lower Extrem (left foot with silas bandage, trace edema)
Neuro: Awake, Alert, Oriented and Tremors (cogwheel changes noted)
[2025-06-06 19:41] VITALS: BP 135/59
[2025-06-06 23:20] VITALS: BP 142/69
--- NOTE | 2025-06-06 23:35 | PTCARENOTE ---
Covering provider changed Vascular checks for left lower extremity to Q12 hrs (once per shift).
[2025-06-07 03:23] VITALS: BP 169/84
[2025-06-07] MEDS: APRESOLINE 5 MG IV (03:29)
[2025-06-07] MEDS: FLUSH (NSS) 2 FLUSH IV (03:32)
[2025-06-07 06:00] VITALS: BMI 20.9
[2025-06-07 07:15] VITALS: BP 185/85
[2025-06-07] MEDS: ADVAIR HFA 45/21 MCG INHALER 2 PUFF INH (07:56)
[2025-06-07] MEDS: ELIQUIS 5 MG PO (08:02)
[2025-06-07] MEDS: MAGNESIUM OXIDE 500 MG PO (08:02)
[2025-06-07] MEDS: LIDOCAINE 4% PATCH TOPICAL (08:02)
[2025-06-07] MEDS: SINEMET 25-100 2 TABLET PO ×2 (08:02→12:18)
[2025-06-07] MEDS: PROCARDIA XL (EXTENDED RELEASE) 30 MG PO (08:02)
--- NOTE | 2025-06-07 08:28 | PTCARENOTE ---
Patient with automatic BP this AM of 185/85 taken by tech, HR 66. Manual BP taken by this RN 172/80 RUE. Patient sitting up in bed, states no complaints at this time, changed for inc of urine, unable to get PRN IV hydralazine at this time. LUE skin
tear dressing changed and JULIEN reapplied, neurovascular check to Antonio WNAmerico. made aware of BP results, stated proceed with scheduled med administration, aware PRN hydralazine not able to be given yet, no new orders at this time.
[2025-06-07 09:08] VITALS: BP 172/80
[2025-06-07 09:47] VITALS: BP 91/43
--- NOTE | 2025-06-07 10:04 | W.PN.HOSP.TC ---
Today's Communication/Plan
-
DC
Assessment / Plan
Assessment / Plan
89yo F with PMHx of Parkinsons, HTN, COPD came with LLE swelling, found LLE acute DVT and submassive PE with lung infarct, s/p L popleteal vein thombolysis by VascSx on 05/29/25 and thrombectomy of infrior vena cava on 05/30/25. Had concern for R
fascial droop and stroke code called on 05/29/25, however as per neurologist - no need in stroke w/u. monitored in ICUALso developed hypoxia with signs of fluid overload s/p Lasix with Hx of and HTN urgency. Cardiology advised Echo in 3 months as
outpatient, Pulm - outpatient hypercoagulable w/u. Patient had single episode of chest pain related to breathing and worsening with swallowing, that resolved without intervention. Medcially stable for d/c to [facility]
A/P:
#Submassive PE, unclear if provoked
#LLE DVT
s/p thrombectomy and thrombolysis by VascSx
Outpatient hematology
cont ELiquis
TTE with pulm HTN and
#Acute hypoxic insufficency
2/2 PE
#Ambulatory deficiency
STR
#
Acute HFpEF exacerbation
Cardio followed
s/p lasix
#R fascial droop
transient
CT head without bleeding
No further w/u as per neurolgist
#PreDM
low carb diet
#Chronic mild anemia
#chronic AST elevation since at least 2022
#Parkinsons
#B/L renal cysts
#Compression Fx L1, L3
#DJD
outpatient follow up with PCP
DVT ppx ELiquis
DNR/DNI
I have spent at least 57min reviewing chart, test results, communication with cosnultants and providing direct patient care
Anticipated Discharge: Today
Subjective/Interval History
-
Date of Service: June 07, 2025
Objective Data
-
Vital Signs:
Vital Signs
Temp Pulse Resp BP Pulse Ox
97.5 F 66 18 91/43 96
06/07/25 07:15 06/07/25 08:02 06/07/25 07:55 06/07/25 09:47 06/07/25 07:55
I&O
06/06/25 06/07/25 06/08/25
06:59 06:59 06:59
Intake Total 440 / 440 570 / 570
Output Total 200 / 200
Balance 440 / 440 370 / 370
Review of Systems
-
History Source: Patient
All other systems: Reviewed and negative
Physical Exam
-
General: Comfortable
HEENT: Normocephalic
Respiratory: Clear to Auscultation
Cardiac: Regular Rhythm
GI: Soft, Nontender and Nondistended
Neuro: Awake, Alert, Oriented and AO x 3
Psych: Calm
--- NOTE | 2025-06-07 10:08 | W.DCSUMMARY ---
Discharge Summary
Discharge Data
Date of Admission: 05/28/25
Date of Discharge: 06/07/25
-
Pending Results: No
Hospital Course
89yo F with PMHx of Parkinsons, HTN, COPD came with LLE swelling, found LLE acute DVT and submassive PE with lung infarct, s/p L popleteal vein thombolysis by VascSx on 05/29/25 and thrombectomy of infrior vena cava on 05/30/25. Had concern for R
fascial droop and stroke code called on 05/29/25, however as per neurologist - no need in stroke w/u. monitored in ICUALso developed hypoxia with signs of fluid overload s/p Lasix with Hx of and HTN urgency. Cardiology advised Echo in 3 months as
outpatient, Pulm - outpatient hypercoagulable w/u. Patient had single episode of chest pain related to breathing and worsening with swallowing, that resolved without intervention. Medcially stable for d/c to [facility]
I have spent at least 57min reviewing chart, test results, communication with cosnultants and providing direct patient care
Patient was managed for:
#Submassive PE, unclear if provoked
#LLE DVT
#Acute hypoxic insufficency
#Ambulatory deficiency
#
#R fascial droop
#PreDM
#Chronic mild anemia
#chronic AST elevation since at least 2022
#Parkinsons
#B/L renal cysts
#Compression Fx L1, L3
#DJD
Discharge Plan
-
Patient Disposition: [facility]NF
Discharge Diagnosis/Procedures: Bilateral PE
Left lower extremity DVT status post popliteal vein thrombolysis on 05/29/2025
Hypertensive urgency
RV dysfunction acute hypoxic respiratory insufficiency-pleural effusions
Skin tears on left dorsal arm
Hypokalemia
Ascending aortic aneurysm 4 cm
Asthma
Hypertension
Parkinson disease
Essential tremor
Diverticulosis
Chronic back pain with compression fractures T7, T9, T8, L1, L3
Diet: 2 Gram Sodium
Activity: With assistance and As tolerated
Driving Restrictions: No driving
Blood Work: CBC, BMP in 1 week
Other Services: PT and OT
Activity Restrictions/Additional Instructions:
Wound Care Instructions
Buttocks: clean with soap and water
L upper buttock: smear of honey gel, adaptic, 2x2 gauze and smaller silicone foam change q other day. Avoid using foam with tacky silicone base.
R buttock: silicone foam change q 3 days
air cushion when sitting, can take upon discharge
increase protein in diet
Follow up at wound care center if not healing, call for an appointment.
Adaptic, gauze and Silas bandages to skin tear and right arm
Silas bandages to left lower extremity knee-high starting just above the toes with no gaps in between
Follow-up with hematology oncology for further workup of blood clots
2 L of oxygen-wean as tolerated for sats above 92
Referrals:
Sue Howell MD [Family Provider, Internal Medicine]
Debbie Desai MD [Active, Oncology]
Referral Note: blood clots
Kale Brown MD [Active, Cardiology] - in one to two months
Edy Desai MD [Active, Pulmonary Medicine]
Referral Note: extensive DVT and pulmonary emboli
Crystal Kitchen CRNP [Specified Professional Personl, Vascular Surgery] - 06/18/25 11:30 am
Referral Note: Vascular surgery office follow-up
Prescriptions:
New
magnesium oxide 500 mg magnesium Tablet
500 mg PO DAILY Qty: 0 0RF
acetaminophen 325 mg Tablet
650 mg PO Q4HPRN PRN (Reason: mild pain/temp > 100.4 F) Qty: 0 0RF
nifedipine 30 mg Tablet Extended Release
30 mg PO DAILY Qty: 0 0RF
albuterol sulfate 2.5 mg /3 mL (0.083 %) Solution For Nebulization
2.5 mg inhalation R Q4HPRN PRN (Reason: SOB) Qty: 0 0RF
Eliquis 5 mg Tablet
5 mg PO BID Qty: 60 0RF
Continued
propranolol 60 mg Capsule,Extended Release 24 Hr
60 mg PO QPM Qty: 0 0RF
fluticasone propion-salmeterol [Advair Diskus] 100-50 mcg/dose Blister With Device
1 inh INHALATION R BID Qty: 0 0RF
carbidopa-levodopa 25-100 mg Tablet
2 tab PO QID Qty: 0 0RF
ProAir RespiClick 90 mcg/actuation Aerosol Powdr Breath Activated
2 inh INHALATION R Q6HPRN PRN (Reason: sob)
Changed
valsartan 160 mg Tablet
320 mg PO QPM Qty: 0 0RF
Discharge Orders:
Discharge Patient (As Directed); Ordered 06/07/25
Ordered By: Omar Kolb
Discharge Date and Time
Print Language: [place]ESE
[2025-06-07 10:34] VITALS: BP 121/56
[2025-06-07 14:48] VITALS: BP 121/61
--- NOTE | 2025-06-07 16:46 | PTCARENOTE ---
Patient discharged to [facility], transported by [facility]. Report called to Debbie at facility. IV and tele pack removed by this RN, vitals taken by tech stable. Patient assisted to bed and changed for saturated inc of urine prior to DC. Sacrum and
heels foams intact, LUE and LLE wrapped in JULIEN. Belongings gathered at bedside. Patient states she is missing clothes and shoes from admission, UC made aware.
== END 2025-06-07 15:19 | DRG 270 ==
LOC: 2 NORTH 21:17
PROVIDERS: Hospitalist; Internal Medicine; Internal Medicine Critical Care Medicine; Nurse Practitioner; Nurse Practitioner Acute Care; Nurse Practitioner Family; Physician Assistant Medical; Surgery; ADMITTING PHYSICIAN Hospitalist; ATTENDING PHYSICIAN Internal Medicine; CONSULT PHYSICIAN Internal Medicine Cardiovascular Disease; CONSULT PHYSICIAN Internal Medicine Critical Care Medicine; CONSULT PHYSICIAN Psychiatry & Neurology Clinical Neurophysiology; EMERGENCY PHYSICIAN Emergency Medicine; FAMILY PHYSICIAN Emergency Medicine; OTHER PHYSICIAN Surgery Vascular Surgery
PROC: B51G1ZZ Fluoroscopy of Left Pelvic (Iliac) Veins using Low Osmolar Contrast (ICD-10-PCS; 2025-05-29)
PROC: B5191ZZ Fluoroscopy of Inferior Vena Cava using Low Osmolar Contrast (ICD-10-PCS; 2025-05-29)
PROC: 3E03317 Introduction of Other Thrombolytic into Peripheral Vein, Percutaneous Approach (ICD-10-PCS; 2025-05-29)
PROC: 06H033Z Insertion of Infusion Device into Inferior Vena Cava, Percutaneous Approach (ICD-10-PCS; 2025-05-29)
PROC: B51C1ZZ Fluoroscopy of Left Lower Extremity Veins using Low Osmolar Contrast (ICD-10-PCS; 2025-05-29)
PROC: 047L3DZ Dilation of Left Femoral Artery with Intraluminal Device, Percutaneous Approach (ICD-10-PCS; 2025-05-30)
PROC: 06C03ZZ Extirpation of Matter from Inferior Vena Cava, Percutaneous Approach (ICD-10-PCS; 2025-05-30)
DX: I82.220 Acute embolism and thrombosis of inferior vena cava (principal); I26.99 Other pulmonary embolism without acute cor pulmonale; I50.33 Acute on chronic diastolic (congestive) heart failure; I82.412 Acute embolism and thrombosis of left femoral vein; I82.432 Acute embolism and thrombosis of left popliteal vein; I82.452 Acute embolism and thrombosis of left peroneal vein; I82.442 Acute embolism and thrombosis of left tibial vein; I82.422 Acute embolism and thrombosis of left iliac vein; J98.11 Atelectasis; I11.0 Hypertensive heart disease with heart failure; R29.810 Facial weakness; R09.02 Hypoxemia; R31.9 Hematuria, unspecified; S51.012A Laceration without foreign body of left elbow, initial encounter; X58.XXXA Exposure to other specified factors, initial encounter; I16.0 Hypertensive urgency; G25.0 Essential tremor; G20.A1 Parkinson's disease without dyskinesia, without mention of fluctuations; J45.909 Unspecified asthma, uncomplicated; Z66 Do not resuscitate; E78.00 Pure hypercholesterolemia, unspecified; R73.03 Prediabetes; D72.829 Elevated white blood cell count, unspecified; M81.0 Age-related osteoporosis without current pathological fracture; D64.9 Anemia, unspecified; E87.6 Hypokalemia; I71.21 Aneurysm of the ascending aorta, without rupture; I08.2 Rheumatic disorders of both aortic and tricuspid valves; M19.90 Unspecified osteoarthritis, unspecified site; G89.29 Other chronic pain; M54.9 Dorsalgia, unspecified; Z99.3 Dependence on wheelchair
CPT/HCPCS: 36011; 36012; 37188; 37212; 37238; 70450; 71045; 71046; 71275; 74177; 75820; 75825; 75898; 80048; 80053; 81003; 81015; 82248; 82306; 82607; 82962; 83036; 83735; 83880; 84100; 84484; 85014; 85018; 85025; 85027; 85049; 85384; 85610; 85730; 93005; 93306; 93971; 94640; 96374; 96376; 97163; 97167; 97530; 97535; 99285; C1725; C1751; C1757; C1769; C1876; C1894; J2997; Q9967

== ENCOUNTER → 2025-06-10 11:25 | Outpatient (REF) | payer OTHER, SELFPAY ==
[2025-06-10 11:58] LABS: Hematocrit 35.1 % (37.0-47.0); Hemoglobin 11.4 g/dL (12.0-16.0); Mean Corp Hgb Conc. 32.5 g/dL (33.0-37.0); Mean Corpuscular Volume 97.8 fL (81.0-99.0); Platelet Count 343 10^3/uL (130-400); Red Cell Dist. Width 16.1 % (11.5-14.5)
[2025-06-10 12:36] LABS: Blood Urea Nitrogen 26 mg/dl (7-17); Calcium 8.7 mg/dl (8.4-10.2); Carbon Dioxide 27 mmol/L (22-30); Chloride 107 mmol/L (98-107); Glucose 79 mg/dl (70-99); Potassium 4.5 mmol/L (3.5-5.1); Sodium 136 mmol/L (135-145); eGFR > 60.00
== END ==
LOC: OLABP 11:25
PROVIDERS: ATTENDING PHYSICIAN Family Medicine
DX: I10 Essential (primary) hypertension (principal); I26.99 Other pulmonary embolism without acute cor pulmonale; I82.402 Acute embolism and thrombosis of unspecified deep veins of left lower extremity; I16.0 Hypertensive urgency; I71.21 Aneurysm of the ascending aorta, without rupture; J45.909 Unspecified asthma, uncomplicated; G20.C Parkinsonism, unspecified; K57.90 Diverticulosis of intestine, part unspecified, without perforation or abscess without bleeding
CPT/HCPCS: 36415; 80048; 85027

== ENCOUNTER → 2025-06-18 09:32 | Outpatient (REF) | payer OTHER, SELFPAY ==
[2025-06-18 11:22] LABS: Blood Urea Nitrogen 29 mg/dl (7-17); Calcium 9.0 mg/dl (8.4-10.2); Carbon Dioxide 27 mmol/L (22-30); Chloride 107 mmol/L (98-107); Glucose 83 mg/dl (70-99); Potassium 4.6 mmol/L (3.5-5.1); Sodium 137 mmol/L (135-145); eGFR > 60.00
== END ==
LOC: OLABP 09:32
PROVIDERS: ATTENDING PHYSICIAN Family Medicine
DX: I26.99 Other pulmonary embolism without acute cor pulmonale (principal); I82.402 Acute embolism and thrombosis of unspecified deep veins of left lower extremity; I16.0 Hypertensive urgency; I71.21 Aneurysm of the ascending aorta, without rupture; J45.20 Mild intermittent asthma, uncomplicated; G20.A1 Parkinson's disease without dyskinesia, without mention of fluctuations; K57.90 Diverticulosis of intestine, part unspecified, without perforation or abscess without bleeding
CPT/HCPCS: 36415; 80048; 83880

== ENCOUNTER → 2025-07-22 09:21 | Outpatient (REF) | payer OTHER, SELFPAY | LOC: RAD 09:21 | PROVIDERS: ATTENDING PHYSICIAN Registered Nurse; FAMILY PHYSICIAN Family Medicine | DX: I82.220 Acute embolism and thrombosis of inferior vena cava (principal); I82.422 Acute embolism and thrombosis of left iliac vein | CPT/HCPCS: 93970; 93978 ==